=== PATIENT | female | born 1955 | race Caucasian/White ===

== ENCOUNTER 2021-12-16 11:09 | Outpatient (CLI) | payer MEDICARE, SELFPAY ==
--- OUTSIDE RECORDS SUMMARY | 2021-12-16 11:12 | XMS_ITS | Encounter Summary ---
:1955 Author Organization [facility] Address [address] [place] [address] Care Team Providers Name Role Phone Meeta Patel MD Primary Care Provider Reason for Visit Reason Comments PHONE CALL TO PATIENT Encounter Details Date Type Department Care Team Description 03/05/2018 [facility] 401 Estevan Gil MD PHONE CALL TO PATIENT Vascular Surgery [address] [facility] [place] [address] [phone] (Wo rk) Social History Tobacco Use Types Packs/Day Years Used Date Smoking Tobacco: Every Day Alcohol Use Standard Drinks/Week Comments Not Asked 0 (1 standard drink = 0.6 oz pure alcoho l) Sex Assigned at Date Recorded Not on file documented as of this encounter Nursing Notes Aman Nelson RN - 03/05/2018 9:38 AM CST 9:39 AM 03/05/2018 Spoke with pt-reviewed instructions below with pt. States her will be with her as her putaway driver. You are scheduled to have a right RFA and phlebectomies procedure with Estevan Gil MD on Mar.08. Please arrive at 7 AM. ?? A history and physical exam is not required for this procedure ?? Please shower the evening before and the morning of your procedure ?? Please do not apply lotion to the leg that the procedure is being performed on ?? It is ok to have a light meal 1-2 hours before the procedure ?? It is ok to take your routine medications (including aspirin) before the procedure ?? Please wear loose-fitting comfortable clothes ?? Please leave your jewelry and valuables at home ?? Please remember to bring a pillow ?? Please arrange for someone to drive you home ?? No public transportation can be used to go home after the procedure. This includes cab/bus/Uber/Lyft. ?? When you get home you must have a responsible adult stay with you the rest of the day. Aman Nelson RN 03/05/2018, 9:44 AM INE III COREMAKER documented in this encounter Plan of Treatment Not on filedocumented as of this encounter Visit Diagnoses Not on filedocumented in this encounter Care Teams Newspaper Reporter Relationship Specialty Start Date End Date Meeta Patel MD PCP - General Internal Medicine 01/15/18 05/19/201999 [place] [address] documented as of this encounter
--- OUTSIDE RECORDS SUMMARY | 2021-12-16 11:12 | XMS_ITS | Encounter Summary ---
:1955 Author Organization [employer] Address [address] [place] [address] Care Team Providers Name Role Phone Meeta Patel MD Primary Care Provider Reason for Visit Reason Comments Post Procedure Questions Encounter Details Date Type Department Care Team Description 03/11/2018 Telephone Specialty Center 401 Estevan Gil, Post Procedure Surgery Clinic Questions 401 [facility]. 401 [place] [address] [place], [place] [phone] [address] Social History Tobacco Use Types Packs/Day Years Used Date Smoking Tobacco: Former Alcohol Use Standard Drinks/Week Comments Not Asked 0 (1 standard drink = 0.6 oz pure alcoho l) Sex Assigned at Date Recorded Not on file documented as of this encounter Nursing Notes Aman Nelson RN - 03/11/2018 12:59 PM CST Post procedure call to patient 1:00 PM Sandy Sousa is status post right radiofrequency ablation (including microphlebectomy) Did you elevate your leg an walk periodically until bed time the day of the procedure? Yes Have you had any problems with bleeding since you got home after the procedure? If yes, please explain.No Have you needed anything for pain? Yes, states worked for 4 hours this morning and leg became achey so went home and took Ibuprofen with good relief. If yes, what have you taken for the pain? Ibuprofen/Tylenol Did this help? Yes If it has been 48 hours or longer since your procedure, have you taken the dressing off and showered? Yes Are you wearing the compression stockings as directed? Yes Your post procedure appointment is scheduled for with Estevan Gil MD. Your follow-up ultrasound is scheduled prior to your appointment at 3:30 on . Do you have any other questions or concerns I can help you with today? No Please call us if you have further questions or concerns at [phone] during regular clinic hours. If you have questions or concerns after clinic hours, please call [phone] and our Care Line nurses will assist you. Aman Nelson, RN LE DEPARTMENT WORKER Jonathan Hernandez LPN - 03/11/2018 12:51 PM CST Post procedure call to patient 12:51 PM Sandy Sousa is status post right radiofrequency ablation (including microphlebectomy) Left message for patient to return call to clinic at [phone] to speak with nurse. Clinic hours: Sunday - Sunday 8 am- 5 pm. See VIRI Hernandez 03/11/2018, 12:53 PM LE DEPARTMENT WORKER documented in this encounter Plan of Treatment Not on filedocumented as of this encounter Visit Diagnoses Not on filedocumented in this encounter Care Teams Business Coordinator Relationship Specialty Start Date End Date Meeta Patel MD PCP - General Internal Medicine 01/15/18 05/19/201999 [place] [address] documented as of this encounter
--- OUTSIDE RECORDS SUMMARY | 2021-12-16 11:12 | XMS_ITS | Encounter Summary ---
:1955 Author Organization [facility] Address [address], [place] [address] Care Team Providers Name Role Phone Meeta Patel MD Primary Care Provider Encounter Details Date Type Department Care Team Description 02/15/2019 shelby Turcios [phone] Social History Tobacco Use Types Packs/Day Years Used Date Smoking Tobacco: Former Alcohol Use Standard Drinks/Week Comments Not Asked 0 (1 standard drink = 0.6 oz pure alcoho l) Sex Assigned at Date Recorded Not on file documented as of this encounter Progress Notes FAMILY MEDICINESHELBY PROVIDER - 02/15/2019 12:00 AM CST shel[facility] Treatment Plan Diagnosis Viral Sinusitis Visit Date February 15, 2019 Sandy Sousa Date of : 51 Provider Fe Rodríguez, Physician Entry Level Paralegal Note From Provider Roscoe Delgado. Thank you for using [facility] today and for speaking with me. I'm so sorry you're having these very bothersome symptoms. Let's get you feeling better! At this point your sinus symptoms are viral. All sinus infections start off as viral infections. If symptoms persist we get concerned that the mucus trapped in the sinuses may develop bacterial growth. At this time the likelihood of bacterialgrowth in your sinuses is extremely low. You'll need to work to get the mucus out of your sinuses toprevent bacterial growth. In your treatment plan I've outlined symptom relief measures along with strategies for clearing your sinuses. Please watch the video included in your plan. The high-dose ibuprofen (800mg every 8 hours with food for 3 days) and Mucinex (plain guaifenesin) as listed reduce inflammation and pain and should help you feel significantly better. Add Flonase nasal spray (found over the counter) 2 sprays each nostril daily. This is an excellent way to decrease the inflammation and swelling. It can also be used at the first sign of any cold symptoms to aid in preventing a sinus infection. Check out the other self-care tips I've listed above, too. If your symptoms do not improve with 3 days of this plan, please request a callback. Take careFe Treatment Plan Let???s get you feeling better in the next 24 hours by using an effective blend of hhfa-dku-ggtyiqv products to kick this viral infection. We???ll work to reduce your pain and inflammation, help drain that irritating mucus and prevent this from worsening. Because this infection is viral, an antibioticwon???t be effective at helping your pain or treating the virus. If your symptoms don???t improve after 24 hours, or if you have questions, select Help to Request a Call Back and we???ll adjust your treatment for free. Order(s) None Treatment Plan Self Care Tip Topics Inflammation Relief with Ibuprofen How to Take Your Nasal Steroid Nasal Sprays to Reduce Inflammation Cough Expectorant Warm Packs Steam Therapy Irrigate Your Sinuses What to Expect Let???s work on reducing your pain and inflammation, as well as promoting drainage, to help kick theviral infection and get you feeling more like yourself. Follow the recommendations on the Treatment tab and your symptoms should begin to improve over the next 24 hours. If your symptoms haven???t impro oscar after 1 day, select Help to Request a Callback and we???ll adjust your treatment for free. What to Watch Out For Give us a call immediately if you experience: ??? Vision changes ??? Redness occurring in the face ??? Increasing congestion ??? Worsening pain ??? High fevers My Conditions, Orders, Allergies as of February 15, 2019 Standard condition list High Blood Pressure (Hypertension) Current orders hydrochlorothiazide (hydrochlorothiazide) Allergies None [facility] Information [facility] by [employer] We are an online clinic open 16/10. If you have any questions or comments about this visit, please call or email [email or web address] [email or web address] documented in this encounter Plan of Treatment Not on filedocumented as of this encounter Visit Diagnoses Not on filedocumented in this encounter Care Teams Screwhead Polisher Relationship Specialty Start Date End Date Meeta Patel MD PCP - General Internal Medicine 01/15/18 05/19/201999 [place] [address] documented as of this encounter
--- OUTSIDE RECORDS SUMMARY | 2021-12-16 11:12 | XMS_ITS | Encounter Summary ---
:1955 Author Organization [facility] Address [address] [place] [address] Care Team Providers Name Role Phone Meeta Patel MD Primary Care Provider Encounter Details Date Type Department Care Team Description 11/28/2018 shelby Turcios [phone] Social History Tobacco Use Types Packs/Day Years Used Date Smoking Tobacco: Former Alcohol Use Standard Drinks/Week Comments Not Asked 0 (1 standard drink = 0.6 oz pure alcoho l) Sex Assigned at Date Recorded Not on file documented as of this encounter Progress Notes FAMILY MEDICINESHELBY PROVIDER - 11/28/2018 12:00 AM CDT [facility] Treatment Plan Diagnosis Contact Dermatitis from Plant Exposure Visit Date November 28, 2018 Sandy Sousa Date of : 51 Provider Shell Brandon, Nurse Practitioner Note From Provider Roscoe Delgado, I have sent your prescription to your pharmacy. Do not hesitate to Request a Call Back forany questions or if you continue to note that the rash continues to spread. Take good care,Shell URBINA Treatment Plan Let's try a prescription strength steroid cream for your rash. I sent a prescription to [facility] . I've also listed a few of the best ways to soothe your discomfort and some additional self-care tips to promote healing. If your symptoms don't improve after 4 days, or if you have questions,please use the Request a Call Back button and we'll adjust your treatment for free. Order(s) triamcinolone acetonide 0.1% cream Apply a small amount to affected area twice a day as directed for 10 days Note: Avoid face and genitalia. Apply to affected areas on chest and arms. Refills: 1 Sent To: [facility] [address] [place] [id number] Treatment Plan Self Care Tip Topics Is it Contagious? Cold Packs Oral Itch Relief What to Expect If you follow the recommendations I made on the Treatment tab, your symptoms should improve in about4 days. If your symptoms don't improve after 4 days, or if you have any questions, please use the Request a Call Back button and we'll adjust your treatment for free. What to Watch Out For Give us a call immediately if you experience: ??? Vision changes ??? Severe headaches ??? Spreading to your face ??? Drainage of thick white, yellow or foul smelling fluids ??? Developing a high fever ??? Worsening rash My Conditions, Orders, Allergies as of November 28, 2018 Standard condition list None Current orders triamcinolone acetonide (triamcinolone acetonide) hydrochlorothiazide (hydrochlorothiazide) Allergies None [employer] Information [employer] [facility] [employer] We are an online clinic open 16/10. If you have any questions or comments about this visit, please call or email [email or web address]. documented in this encounter Plan of Treatment Not on filedocumented as of this encounter Visit Diagnoses Not on filedocumented in this encounter Care Teams Head Of Ethics And Compliance Relationship Specialty Start Date End Date Meeta Patel MD PCP - General Internal Medicine 01/15/18 05/19/[address] [place] [address] documented as of this encounter
--- OUTSIDE RECORDS SUMMARY | 2021-12-16 11:12 | XMS_ITS | Encounter Summary ---
:1955 Author Organization [employer] Address [address] [place] [address] Care Team Providers Name Role Phone Js Sousa MD Primary Care Provider Reason for Visit Reason Comments Questions Encounter Details Date Type Department Care Team Description 06/04/2020 Telephone Specialty Center 401 Estevan Gil MD Questions [facility] 401 [place] [address] [place] [address] [phone] Social History Tobacco Use Types Packs/Day Years Used Date Smoking Tobacco: Former Smokeless Tobacco: Never Alcohol Use Standard Drinks/Week Comments Not Asked 0 (1 standard drink = 0.6 oz pure alcoho l) Sex Assigned at Date Recorded Not on file documented as of this encounter Nursing Notes Cora Sosa RN - 06/04/2020 3:[address] Gil states he incorporated the information into his last note. Please fax Dr. Gil's notefrom 05/21 and TE notes from today to Luisa. Cora Sosa RN 06/04/2020, 3:26 PM UE WORKER Eileen Haskins - 06/04/2020 3:23 PM CST Faxed updated notes to Luisa. Eileen Haskins 06/04/2020, 3:23 PM UE WORKER HaskinsEileen ruth - 06/04/2020 3:01 PM CST Received fax number from Luisa to send notes to [phone]. I do not see the new notes added. Please add information to appointment notes and fax information to Luisa to fax number above. Eileen Haskins 06/04/2020, 3:02 PM UE WORKER Cora Sosa RN - 06/04/2020 2:[address] Gil's message routed to [place] to send to Luisa in [place]. Cora Sosa RN 06/04/2020, 2:21 PM Estevan Rankin MD - 06/04/2020 10:36 AM CST I added an addendum. Her saphenofemoral junction is the source of her varicosities leading into the anterior accessory saphenous vein. The vein measures roughly 8 mm at this location. The distal greater saphenous vein is also incompetent in the calf. My plan would be to treat the saphenofemoral incompetence and do stab assisted phlebectomies throughout the thigh and calf. She has worn prescription grade compression socks dating back to 2018 which was documented in my previous note. I added this again as an addendum. Estevan Gil MD 06/04/2020, 10:37 AM Cora Reed RN - 06/04/2020 10:05 AM CST RN returned call to Luisa. Luisa states there is no documentation that the pt has tried compression stockings and she also has questions as to which veins Dr. Gil will be treating - states US showed AASV is competent but Dr. Gil notes he would be treating. RN replied it would be best for Luisa to speak w/ Dr. Gil directly regarding these questions and explained she inform Dr. Gil of the message and need to call. Luisa agreed - states she needs a response by end of day on Sunday. RN verbalized understanding. Cora Sosa RN 06/04/2020, 10:09 AM UE WORKER Eileen Haskins - 06/04/2020 9:43 AM CST Luisa from [facility] department is calling stating she needs more information about what veins are going to be treated and the dimensions of the vein. Please call her back to discuss. Eileen Haskins 06/04/2020, 9:44 AM UE WORKER documented in this encounter Plan of Treatment Not on filedocumented as of this encounter Visit Diagnoses Not on filedocumented in this encounter Care Teams Department Store Salesperson Relationship Specialty Start Date End Date Js Sousa MD PCP - General 05/20/201999 [place] [address] documented as of this encounter
--- OUTSIDE RECORDS SUMMARY | 2021-12-16 11:12 | XMS_ITS | Encounter Summary ---
:1955 Author Organization [facility] Address [address] [place] [address] Care Team Providers Name Role Phone Js Sousa MD Primary Care Provider Reason for Referral Procedure/Equipment (Routine) - Incomplete Specialty Diagnoses / Procedures Referred By Contact Refer red To Contact Diagnoses Varicose veins of left lower extremity with pain Estevan Gil MD Procedures Case/Procedure Request - General/V[facility] [address] [place] [address] Referral ID Status Reason Start Date Expiration Date Visits V isits Requested Authorized [id number] Incomplete 05/30/2020 11/26/2020 1 1 ENT PROCESS EXTRACTOR OPERATOR Procedure/Equipment (Routine) - Incomplete Specialty Diagnoses / Procedures Referred By Contact Refer red To Contact Diagnoses Varicose veins of left lower extremity with pain Estevan Gil MD Procedures US VENOUS LEFT LOWER EXTREM DOPPLER [address] [place] [address] Referral ID Status Reason Start Date Expiration Date Visits V isits Requested Authorized [id number] Incomplete 05/30/2020 08/29/2021 1 1 ENT PROCESS EXTRACTOR OPERATOR Encounter Details Date Type Department Care Team Description 05/30/2020 Orders Only [facility] Estevan Gil Vari cose veins of left 401 Vascular Surgery MD lower extremity with [address] pain (Primary Dx) STEPHEN [place] [address] [place] [phone] Social History Tobacco Use Types Packs/Day Years Used Date Smoking Tobacco: Former Smokeless Tobacco: Never Alcohol Use Standard Drinks/Week Comments Not Asked 0 (1 standard drink = 0.6 oz pure alcoho l) Sex Assigned at Date Recorded Not on file documented as of this encounter Plan of Treatment Not on filedocumented as of this encounter Results US VENOUS LEFT LOWER EXTREM DOPPLER (09/03/2020 1:27 PM CDT) Anatomical Region Laterality Modality Vascular, Leg Ultrasound Specimen (Source) Anatomical Collection Method Collection Time Re ceived Time Location / / Volume Laterality 09/03/2020 1:27 PM CDT Narrative 09/04/2020 2:51 PM CDT EXAM: US VENOUS LEFT LOWER EXTREM DOPPLER LOC[facility]: [facility] DATE/TIME: 09/03/2020 1:27 PM INDICATION: Follow-up left leg venous ab lation COMPARISON: None. TECHNIQUE: Venous Duplex ultrasound of t he left lower extremity with and without compression, augmentation and duplex. Color flow and spectral Doppler with waveform analysis performed. FINDINGS: Exam includes the common femor al, femoral, popliteal, and contralateral common femoral veins as well as segmentally visualized deep calf veins and greater saphenous vein. LEFT: No deep vein thrombosis. There is occlusion of the left greater saphenous vein in the proximal thigh. The left anterior accessory saphenous vein does appear to be patent. No popliteal cyst. IMPRESSION: 1. ??No deep venous thrombosis in the le ft lower extremity. Occlusion of the proximal left greater saphenous vein consistent with recent venous ablation. Procedure Note Estevan Gil MD - 09/04/2020Formatti ng of this note might be different from the original. EXAM: US VENOUS LEFT LOWER EXTREM DOPPLE R LOCATION: [facility] DATE/TIME: 09/03/2020 1:27 PM INDICATION: Follow-up left leg venous ab lation COMPARISON: None. TECHNIQUE: Venous Duplex ultrasound of t he left lower extremity with and without compression, augmentation and duplex. Color flow and spectral Doppler with waveform analysis performed. FINDINGS: Exam includes the common femor al, femoral, popliteal, and contralateral common femoral veins as well as segmentally visualized deep calf veins and greater saphenous vein. LEFT: No deep vein thrombosis. There is occlusion of the left greater saphenous vein in the proximal thigh. The left anterior accessory saphenous vein does appear to be patent. No popliteal cyst. IMPRESSION: 1. No deep venous thrombosis in the left lower extremity. Occlusion of the proximal left greater saphenous vein consistent with recent venous ablation. Estevan Gil MD [facility] documented in this encounter Visit Diagnoses Diagnosis Varicose veins of left lower extremity w ith pain - Primary Varicose veins of lower extremities with other complications Varicose veins of left lower extremity w ith pain Varicose veins of lower extremities with other complications documented in this encounter Care Teams Yeast Culture Operator Relationship Specialty Start Date End Date Js Sousa MD PCP - General 05/20/201999 [place] [address] documented as of this encounter
--- OUTSIDE RECORDS SUMMARY | 2021-12-16 11:12 | XMS_ITS | Encounter Summary ---
:1955 Author Organization [employer] Address [address] [place] [address] Care Team Providers Name Role Phone Js Sousa MD Primary Care Provider Reason for Visit Reason Comments Questions Encounter Details Date Type Department Care Team Description 08/20/2020 Telephone Specialty Center 401 Estevan Gil MD Questions [facility] [place] [address] [place] [address] [phone] Social History Tobacco Use Types Packs/Day Years Used Date Smoking Tobacco: Former Smokeless Tobacco: Never Alcohol Use Standard Drinks/Week Comments Not Asked 0 (1 standard drink = 0.6 oz pure alcoho l) Sex Assigned at Date Recorded Not on file documented as of this encounter Nursing Notes Cathy Poole RN - 08/20/2020 11:00 AM CDT Contacted pt. Does not have compression stockings as she first thought. Pt advised that it is ok to use the jack bandages from compression for the couple weeks postoperatively. Making sure to wear them 24 hours a day first week and just during waking hours second week post procedure. If pt prefers prescriptions for compression that can be supplied also. Pt has decided to utilize the jack bandages for post procedure compression. Will call back with future concerns. Cathy Poole RN 08/20/2020, 11:02 AM Elena Berrios - 08/20/2020 10:23 AM CDT Pt had procedure today and she does not have compression stockings and she is wondering where to getsome. Please call Elena Berrios 08/20/2020, 10:23 AM documented in this encounter Plan of Treatment Not on filedocumented as of this encounter Visit Diagnoses Not on filedocumented in this encounter Care Teams Information Security Relationship Specialty Start Date End Date Js Sousa MD PCP - General 05/20/201999 [place] [address] documented as of this encounter
--- OUTSIDE RECORDS SUMMARY | 2021-12-16 11:12 | XMS_ITS | Encounter Summary ---
:1955 Author Organization [employer] Address [address] [place] [address] Care Team Providers Name Role Phone Meeta Patel MD Primary Care Provider Reason for Visit Reason Comments POST-OP,EXAM Encounter Details Date Type Department Care Team Description 03/15/2018 Office Visit Specialty Center Estevan Gil Vari cose veins of 401 Vascular Surgery MD lower extremity with [address] pain, [place] [address] [place], [place] laterality (Primary [phone] Dx) Social History Tobacco Use Types Packs/Day Years Used Date Smoking Tobacco: Former Alcohol Use Standard Drinks/Week Comments Not Asked 0 (1 standard drink = 0.6 oz pure alcoho l) Sex Assigned at Date Recorded Not on file documented as of this encounter Last Filed Vital Signs Vital Sign Reading Time Taken Comments Blood Pressure 165/94 03/15/2018 4:15 PM GEOTHERMAL HEAT PUMP MACHINIST Pulse 59 03/15/2018 4:15 PM GEOTHERMAL HEAT PUMP MACHINIST Temperature 36.8 ??C (98.2 ??F) 03/15/2018 4:15 PM GEOTHERMAL HEAT PUMP MACHINIST Respiratory Rate - - Oxygen Saturation - - Inhaled Oxygen Concentration - - Weight - - Height - - Body Mass Index - - documented in this encounter Progress Notes Estevan Gil MD - 03/15/2018 4:10 PM CST VASCULAR SURGERY FOLLOW-UP DATE OF SERVICE: 03/15/2018 SUBJECTIVE: I am seeing Ms. Sousa after right leg endovenous ablation and phlebectomies. She has had minimal pain. OBJECTIVE: BP (!) 165/94 Pulse (!) 59 Temp 98.2 ??F (36.8 ??C) (Oral) . She has mild bruising along the course of the treated veins. She has no appreciable swelling. ASSESSMENT AND PLAN: Patient is status post right leg endovenous ablation and phlebectomies. I reviewed her ultrasound which demonstrates occlusion of treated vein with no evidence of deep vein thrombosis. I will see her back on an as- needed basis. Estevan Gil MD This note created using speech-recognition software and may contain unintended word substitutions HERMAL HEAT PUMP MACHINIST documented in this encounter Nursing Notes Aman Nelson RN - 03/15/2018 4:10 PM CST Pt left without having BP checked. Aman Nelson RN 03/15/2018, 4:27 PM HERMAL HEAT PUMP MACHINIST documented in this encounter Plan of Treatment Not on filedocumented as of this encounter Visit Diagnoses Diagnosis Varicose veins of lower extremity with p ain, unspecified laterality - Primary documented in this encounter Care Teams Noc Analyst Relationship Specialty Start Date End Date Meeta Patel MD PCP - General Internal Medicine 01/15/18 05/19/201999 [place] [address] documented as of this encounter
--- OUTSIDE RECORDS SUMMARY | 2021-12-16 11:12 | XMS_ITS | Encounter Summary ---
:1955 Author [facility] Address [address] [place] [address] Care Team Providers Name Role Phone Js Sousa MD Primary Care Provider Reason for Visit Procedure/Equipment (Routine) - Incomplete Specialty Diagnoses / Procedures Referred By Contact Refer red To Contact Diagnoses Varicose veins of lower extremity with pain, unspecified laterality Estevan Gil MD Procedures Vascular Surgery [address] [place] [address] Referral ID Status Reason Start Date Expiration Date Visits V isits Requested Authorized [id number] Incomplete 08/20/2020 11/19/2021 1 1 Encounter Details Date Type Department Care Team Description 08/20/2020 Ancillary Procedure Specialty Center Estevan Gil Varicose veins of 401 Vascular Surgery MD Myesha lower extremity with [address] pain, [place] [address] [place], [place] laterality [phone] Social History Tobacco Use Types Packs/Day Years Used Date Smoking Tobacco: Former Smokeless Tobacco: Never Alcohol Use Standard Drinks/Week Comments Not Asked 0 (1 standard drink = 0.6 oz pure alcoho l) Sex Assigned at Date Recorded Not on file documented as of this encounter Plan of Treatment Not on filedocumented as of this encounter Procedures Procedure Name Priority Date/Time Associated Diagnosis Comme nts US VASCULAR SURGERY Routine 08/20/2020 6:56 AM Varicose veins of Results for this CDT lower extremity with procedu re are in pain, unspecified the result s laterality section. documented in this encounter Results US Vascular Surgery (08/20/2020 6:56 AM CDT) Specimen (Source) Anatomical Location Collection Method / Collectio n Time Received Time / Laterality Volume Narrative EXTERNAL RESULTS - 08/20/2020 6:56 AM CD T This imaging has been performed by the ordering department and is not read by a Radiologist, see notes in encounter for details on study. Estevan Gil MD [facility] US Performing Organization Address City/State/ZIP Code Phon e Number EXTERNAL RESULTS documented in this encounter Visit Diagnoses Diagnosis Varicose veins of lower extremity with p ain, unspecified laterality documented in this encounter Care Teams Promotions Specialist Relationship Specialty Start Date End Date Js Sousa MD PCP - General 05/20/201999 [place] [address] documented as of this encounter
--- OUTSIDE RECORDS SUMMARY | 2021-12-16 11:12 | XMS_ITS | Encounter Summary ---
:1955 Author Organization [facility] Address [address], [place] [address] Care Team Providers Name Role Phone Unassigned, Provider Primary Care Provider Unavailable Encounter Details Date Type Department Care Team Description 09/20/2006 Orders Only [facility] Claims MD Meena Security Contact Bill [address] [place] [address] Mailstop [id number] [phone] (Wo rk) Social History Tobacco Use Types [...] on filedocumented in this encounter Care Teams Chemical Engineering Professor Relationship Specialty Start Date End Date Unassigned, Provider PCP - General 11/20/02 01/14/[address] [place] [address] documented as of this encounter
--- OUTSIDE RECORDS SUMMARY | 2021-12-16 11:12 | XMS_ITS | Encounter Summary ---
:1955 Author Organization [facility] Address [address] [place] [address] Care Team Providers Name Role Phone Unassigned, Provider Primary Care Provider Unavailable Reason for Visit Reason Onset Date Comments Other 05/16/2003 Encounter Details Date Type Department Care Team Description 05/16/2003 Telephone Careline Raul Croft, RN Other [address] AFTER HOURS [place], [place] [address] CARELINE [phone] [address] [place], [place] [id number] Social History Tobacco Use Types Packs/Day Years Used Date Smoking Tobacco: Every Day Alcohol Use Standard Drinks/Week Comments Not Asked 0 (1 standard drink = 0.6 oz pure alcoho l) Sex Assigned at Date Recorded Not on file documented as of this encounter Nursing Notes 05/16/2003 11:59 PM LATEX CASTER >> RAUL CROFT Sat May 16, 2003 11:21 AM 48 yr old seen in [facility] Apr 29 for tetanus. Still having problems with arm. Pain in area persists.NO redness, red streaks. water mangle tender to touch. Aching constantly in arm. NO numbness in arm. Healt hy. Pt states hasn't been seen for pain. Plan: Advised pt to be seen. appt ctr [facility] with UC time. voiced understanding of information given. documented in this encounter Plan of Treatment Not on filedocumented as of this encounter Visit Diagnoses Not on filedocumented in this encounter Care Teams Animal Cytologist Relationship Specialty Start Date End Date Unassigned, Provider PCP - General 11/20/02 01/14/18 [address] [place] [address] documented as of this encounter
--- OUTSIDE RECORDS SUMMARY | 2021-12-16 11:12 | XMS_ITS | Encounter Summary ---
:1955 Author Organization [facility] Address [address] [place] [address] Care Team Providers Name Role Phone Js Sousa MD Primary Care Provider Encounter Details Date Type Department Care Team Description 02/12/2018 Correspondence None Inactive, Provider CHRISTIAN GIBSON BILLABLE Social History Tobacco Use Types Packs/Day Years Used Date Smoking Tobacco: Every Day Alcohol Use Standard Drinks/Week Comments Not Asked 0 (1 standard drink = 0.6 oz pure alcoho l) Sex Assigned at Date Recorded Not on file documented as of this encounter Plan of Treatment Not on filedocumented as of this encounter Visit Diagnoses Not on filedocumented in this encounter Care Teams Color Television Console Monitor Relationship Specialty Start Date End Date Js Sousa MD PCP - General 05/20/201999 [place] [address] documented as of this encounter
--- OUTSIDE RECORDS SUMMARY | 2021-12-16 11:12 | XMS_ITS | Encounter Summary ---
:1955 Author Organization [email or web address] Address [address] [place] [address] Care Team Providers Name Role Phone Meeta Patel MD Primary Care Provider Reason for Referral Procedure/Equipment (Routine) - Incomplete Specialty Diagnoses / Procedures Referred By Contact Refer red To Contact Diagnoses Varicose veins of right lower extremity with pain Estevan Gil MD Procedures US Venous Competency Rt [address] [place] [address] Referral ID Status Reason Start Date Expiration Date Visits V isits Requested Authorized [id number] Incomplete 01/16/2018 04/17/2019 1 1 Reason for Visit Reason Comments NEW MEMBER VISIT Right leg vein bulging/phleb itis Encounter Details Date Type Department Care Team Description 01/18/2018 Office Visit [facility] Estevan Gil, Makenzie cose veins of 401 Vascular Surgery right lower extremity [address] with pain (Primary Dx) [place] [address] [place], [place] [phone] Social History Tobacco Use Types Packs/Day Years Used Date Smoking Tobacco: Every Day Alcohol Use Standard Drinks/Week Comments Not Asked 0 (1 standard drink = 0.6 oz pure alcoho l) Sex Assigned at Date Recorded Not on file documented as of this encounter Last Filed Vital Signs Vital Sign Reading Time Taken Comments Blood Pressure 165/89 01/18/2018 2:37 PM CDT Pulse 62 01/18/2018 2:37 PM CDT Temperature - - Respiratory Rate - - Oxygen Saturation - - Inhaled Oxygen Concentration - - Weight 93.6 kg (206 lb 6.4 oz) 01/18/2018 2:11 PM CDT Height 162.6 cm (5' 4) 01/18/2018 2:11 PM CDT Body Mass Index 35.43 01/18/2018 2:11 PM CDT documented in this encounter Progress Notes Estevan Gil MD - 01/18/2018 2:40 PM CDT NEW PATIENT CONSULTATION DATE OF SERVICE: 01/18/2018 HPI: I was asked to see Ms. Sousa in consultation by Patient Self- Referral in relation to right leg pain. Briefly the patient is a 62-year-old female with roughly 3 months of right leg pain. This came on relatively suddenly. She describes an aching and heaviness which was proceeding this but has been more consistent since she developed the inner right thigh pain. She had an ultrasound that demonstrated no evidence of deep vein thrombosis. She denies significant pain in her left leg. She does have per prescription grade compression socks and has worn these for at least three months. The pain does sometimes force her to elevate the leg are take [id number] pain medicine. PAST MEDICAL HISTORY: Previous hysterectomy, hypothyroidism SOCIAL HISTORY: She is a nonsmoker FAMILY HISTORY: Negative for significant vascular disease REVIEW OF SYSTEMS: Patient denies shortness of breath or chest pain. The patient denies recent weight gain or weight loss. Complete review of systems was performed and was otherwise negative. MEDICATIONS: The patient has a current medication list which includes the following prescription(s):ibuprofen, premarin, and synthroid.. ALLERGIES: The patient has No Known Allergies. PHYSICAL EXAM: BP (!) 165/89 Pulse 62 Ht 5' 4 (1.626 m) Wt 206 lb 6.4 oz (93.6 kg) BMI 35.43 kg/m2 General: alert and oriented HEENT: sclera anicteric, no cervical bruits or lymphadenopathy CV: regular Pulm: clear to auscultation GI: abd soft, NT : no flank tenderness Vascular exam: She has easily palpable femoral and pedal pulses which are equal. She has trace swelling around both ankles. She has prominent varicosities which arise in the mid right thigh off of whatappears to be the anterior accessory saphenous vein or proximal greater saphenous vein. DIAGNOSTIC STUDIES: I reviewed her outside ultrasound which demonstrates no evidence of deep vein thrombosis. I did a bedside ultrasound which demonstrates that the varicosities appear to arise from the upper right thigh to the saphenofemoral junction. ASSESSMENT AND PLAN: Patient with symptomatic right leg varicosities. This does not appear to be thrombophlebitis. The risks and benefits of endovenous ablation of phlebectomies were discussed with her. She would need a venous reflux study as a next step. For now she will continue wearing her compression socks. She will call or come back if she decides to proceed with more definitive treatment. Otherwise I will see her back on an as-needed basis. Estevan Gil MD This note created using speech-recognition software and may contain unintended word substitutions documented in this encounter Plan of Treatment Not on filedocumented as of this encounter Results US Venous Competency Rt (01/29/2018 9:39 AM SALES DEVELOPMENT EXECUTIVE) Anatomical Region Laterality Modality Vascular, Upper Extremity Ultrasound Specimen (Source) Anatomical Collection Method Collection Time Re ceived Time Location / / Volume Laterality 01/29/2018 9:39 AM SALES DEVELOPMENT EXECUTIVE Narrative 01/31/2018 12:41 PM SALES DEVELOPMENT EXECUTIVE [facility] January 29, 2018 EXAM: RIGHT LOWER EXTREMITY DEEP AND SUP ERFICIAL VENOUS DUPLEX ULTRASOUND WITH PHYSIOLOGIC TESTING INDICATION: Symptomatic varicose veins. Assess for incompetent veins. TECHNIQUE: Supine and upright ultrasound of the deep and superficial veins with Valsalva and compression augmentation maneuvers. Duplex imaging is performed utilizing su-scale, two-dimensional images, color-flow imaging, Doppler waveform an alysis, and spectral Doppler imaging. INCOMPETENCY CRITERIA: Deep vein reflux reported when greater than 1,000 ms flow reversal. Superficial vein reflux reported when greater than 500 ms flow reversal. Ballistics Expert Forensic vein reflux reported as greater than 350 ms flow reversal. DEEP VEIN FINDINGS: ?? RIGHT LEG: The common femoral, profunda femoral, femoral, popliteal, and visualized calf veins are patent and compressible. No deep vein incompetency. RIGHT SUPERFICIAL VEIN FINDINGS: GREAT SAPHENOUS VEIN: There is incompete nce of the saphenofemoral junction with dilation up to 8 mm and incompetence of the greater saphenous vein down to the knee. SMALL SAPHENOUS VEIN: Competent from the saphenopopliteal junction to the mid calf. The anterior accessory saphenous vein is incompetent leading the clinically evident varicosities. CONCLUSION: 1. ??No deep venous thrombosis of the ri t lower extremity. 2. ??RIGHT LEG: The right superficial ve nous system is patent, with incompetence of the greater saphenous vein and anterior accessory saphenous vein leading to clinically evident varicosities. Procedure Note Estevan Gil MD - 01/31/2018Formatti ng of this note might be different from the original. [facility] January 29, 2018 EXAM: RIGHT LOWER EXTREMITY DEEP AND SUP ERFICIAL VENOUS DUPLEX ULTRASOUND WITH PHYSIOLOGIC TESTING INDICATION: Symptomatic varicose veins. Assess for incompetent veins. TECHNIQUE: Supine and upright ultrasound of the deep and superficial veins with Valsalva and compression augmentation maneuvers. Duplex imaging is performed utilizing su-scale, two-dimensional images, color-flow imaging, Doppler waveform analysis, and spectral Doppler imaging. INCOMPETENCY CRITERIA: Deep vein reflux reported when greater than 1,000 ms flow reversal. Superficial vein reflux reported when greater than 500 ms flow reversal. Ballistics Expert Forensic vein reflux reported as greater than 350 ms flow reversal. DEEP VEIN FINDINGS: RIGHT LEG: The common femoral, profunda femoral, femoral, popliteal, and visualized calf veins are patent and compressible. No deep vein incompetency. RIGHT SUPERFICIAL VEIN FINDINGS: GREAT SAPHENOUS VEIN: There is incompete nce of the saphenofemoral junction with dilation up to 8 mm and incompetence of the greater saphenous vein down to the knee. SMALL SAPHENOUS VEIN: Competent from the saphenopopliteal junction to the mid calf. The anterior accessory saphenous vein is incompetent leading the clinically evident varicosities. CONCLUSION: 1. No deep venous thrombosis of the rig t lower extremity. 2. RIGHT LEG: The right superficial veno us system is patent, with incompetence of the greater saphenous vein and anterior accessory saphenous vein leading to clinically evident varicosities. Estevan Gil MD [facility] US documented in this encounter Visit Diagnoses Diagnosis Varicose veins of right lower extremity with pain - Primary Varicose veins of lower extremities with other complications Varicose veins of right lower extremity with pain Varicose veins of lower extremities with other complications documented in this encounter Care Teams Power Plant Operator Apprentice Relationship Specialty Start Date End Date Meeta Patel MD PCP - General Internal Medicine 01/15/18 05/19/201999 [place] [address] documented as of this encounter
--- OUTSIDE RECORDS SUMMARY | 2021-12-16 11:12 | XMS_ITS | Encounter Summary ---
:1955 Author Organization [employer] Address [address] [place] [address] Care Team Providers Name Role Phone Js Sousa MD Primary Care Provider Reason for Visit Reason Comments Post Op Exam Encounter Details Date Type Department Care Team Description 09/03/2020 Office Visit Specialty Center Estevan Gil Vari cose veins of 401 Vascular Surgery MD lower extremity with [address] [place], [place] [address] [place], [place] laterality (Primary [phone] Dx) Social History Tobacco Use Types Packs/Day Years Used Date Smoking Tobacco: Former Smokeless Tobacco: Never Alcohol Use Standard Drinks/Week Comments Never 0 (1 standard drink = 0.6 oz pure alcoho l) Alcohol Habits Answer Date Recorded How often do you have a drink containing alcohol? Never 09/03/2020 How many drinks containing alcohol do you have on a typical Not asked day when you are drinking? How often do you have six or more drinks on one occasion? No t asked Comment: Not asked Sex Assigned at Date Recorded Not on file documented as of this encounter Progress Notes Estevan Gil MD - 09/03/2020 1:30 PM CDT VASCULAR SURGERY FOLLOW-UP DATE OF SERVICE: 09/03/2020 SUBJECTIVE: I am seeing Ms. Sousa after previous venous ablation and phlebectomy. She has had minimal pain. OBJECTIVE: There were no vitals taken for this visit.. She has mild bruising on the leg. There is noappreciable swelling. ASSESSMENT AND PLAN: Patient is status post left leg venous ablation and phlebectomy. If I reviewed her ultrasound which demonstrates occlusion of the treated vein with no evidence of DVT. I will see her back on an as-needed basis. Estevan Gil MD This note created using speech-recognition software and may contain unintended word substitutions documented in this encounter Plan of Treatment Not on filedocumented as of this encounter Visit Diagnoses Diagnosis Varicose veins of lower extremity with p ain, unspecified laterality - Primary documented in this encounter Care Teams Freezing Machine Operator Relationship Specialty Start Date End Date Js Sousa MD PCP - General 05/20/201999 [place] [address] documented as of this encounter
--- OUTSIDE RECORDS SUMMARY | 2021-12-16 11:12 | XMS_ITS | Encounter Summary ---
:1955 Author Organization [facility] Address [address], [place] [address] Care Team Providers Name Role Phone Unassigned, Provider Primary Care Provider Unavailable Encounter Details Date Type Department Care Team Description 01/29/2013 Orders Only [facility] Claims MD Meena Security Contact Bill [address] [place] [address] Mailstop [id number] [phone] (Wo rk) Social History Tobacco Use Types [...] on filedocumented in this encounter Care Teams Assurance Manager Insurance Relationship Specialty Start Date End Date Unassigned, Provider PCP - General 11/20/02 01/14/[address] [place] [address] documented as of this encounter
--- OUTSIDE RECORDS SUMMARY | 2021-12-16 11:12 | XMS_ITS | Encounter Summary ---
:1955 Author Organization [facility] Address [address] [place] [address] Care Team Providers Name Role Phone Unassigned, Provider Primary Care Provider Unavailable Encounter Details Date Type Department Care Team Description 05/16/2003 Correspondence None Unknown, Physici an CONSENT AND RELEASE [address] [place] [address] (Wo rk) Social History Tobacco Use Types Packs/Day Years Used Date Smoking Tobacco: Every Day Alcohol Use Standard Drinks/Week Comments Not Asked 0 (1 standard drink = 0.6 oz pure alcoho l) Sex Assigned at Date Recorded Not on file documented as of this encounter Progress Notes Unknown, Physician - 05/16/2003 12:00 AM RAILROAD MECHANIC documented in this encounter Plan of Treatment Not on filedocumented as of this encounter Visit Diagnoses Not on filedocumented in this encounter Care Teams Carpentry Professional Relationship Specialty Start Date End Date Unassigned, Provider PCP - General 11/20/02 01/14/18 [address] [place] [address] documented as of this encounter
--- OUTSIDE RECORDS SUMMARY | 2021-12-16 11:12 | XMS_ITS | Encounter Summary ---
:1955 Author Organization [facility] Address [address] [place] [address] Care Team Providers Name Role Phone Meeta Patel MD Primary Care Provider Reason for Referral Procedure/Equipment (Routine) - Incomplete Specialty Diagnoses / Procedures Referred By Contact Refer red To Contact Diagnoses Varicose veins of right lower extremity with pain Estevan Gil MD Procedures Case/Procedure Request - General/Vascula [address] [place] [address] Referral ID Status Reason Start Date Expiration Date Visits V isits Requested Authorized [id number] Incomplete 01/31/2018 07/30/2018 1 1 VIORIST Procedure/Equipment (Routine) - Incomplete Specialty Diagnoses / Procedures Referred By Contact Refer red To Contact Diagnoses Varicose veins of right lower extremity with pain Estevan Gil MD Procedures US VENOUS RIGHT LOWER EXTREM DOPPLER [address] [place] [address] Referral ID Status Reason Start Date Expiration Date Visits V isits Requested Authorized [id number] Incomplete 01/31/2018 05/02/2019 1 1 VIORIST Encounter Details Date Type Department Care Team Description 01/31/2018 Notes/Orders Specialty Center Estevan Gil Vari cose veins of 401 Vascular Surgery MD right lower extremity [address] with pain (Primary Dx) STEPHEN Seymour [id number] STEPHEN SEYMOUR [phone] Social History Tobacco Use Types Packs/Day Years Used Date Smoking Tobacco: Every Day Alcohol Use Standard Drinks/Week Comments Not Asked 0 (1 standard drink = 0.6 oz pure alcoho l) Sex Assigned at Date Recorded Not on file documented as of this encounter Plan of Treatment Not on filedocumented as of this encounter Results US VENOUS RIGHT LOWER EXTREM DOPPLER (03/15/2018 3:54 PM BEHAVIORIST) Anatomical Region Laterality Modality Vascular, Leg Ultrasound Specimen (Source) Anatomical Collection Method Collection Time Re ceived Time Location / / Volume Laterality 03/15/2018 3:54 PM BEHAVIORIST Narrative 03/16/2018 2:21 PM BEHAVIORIST [facility] US VENOUS RIGHT LOWER EXTREM DOPPLER 03/15/2018 3:54 PM INDICATION: Follow-up right greater saph enous ablation TECHNIQUE: Routine exam without and with compression, augmentation and duplex utilizing 2D su-scale imaging, Doppler interrogation with color-flow and spectral waveform analysis. COMPARISON: None. FINDINGS: The common femoral, femoral, p opliteal, and segmentally visualized calf veins were evaluated. For unilateral leg studies, the contralateral common femoral vein was included. Ultrasound of these leg veins is negativ e for deep venous thrombosis. There is occlusion of the right greater saphenous vein from 1.5 cm to the saphenofemoral junction to the distal thigh. CONCLUSION: 1. ??Exam is negative for DVT in the rig ht leg. Occlusion of the greater saphenous vein consistent with recent venous ablation. Procedure Note Estevan Gil MD - 03/16/2018Formatti ng of this note might be different from the original. [facility] US VENOUS RIGHT LOWER EXTREM DOPPLER 03/15/2018 3:54 PM INDICATION: Follow-up right greater saph enous ablation TECHNIQUE: Routine exam without and with compression, augmentation and duplex utilizing 2D su-scale imaging, Doppler interrogation with color-flow and spectral waveform analysis. COMPARISON: None. FINDINGS: The common femoral, femoral, p opliteal, and segmentally visualized calf veins were evaluated. For unilateral leg studies, the contralateral common femoral vein was included. Ultrasound of these leg veins is negativ e for deep venous thrombosis. There is occlusion of the right greater saphenous vein from 1.5 cm to the saphenofemoral junction to the distal thigh. CONCLUSION: 1. Exam is negative for DVT in the right leg. Occlusion of the greater saphenous vein consistent with recent venous ablation. Estevan Gil MD [facility] documented in this encounter Visit Diagnoses Diagnosis Varicose veins of right lower extremity with pain - Primary Varicose veins of lower extremities with other complications Varicose veins of right lower extremity with pain Varicose veins of lower extremities with other complications documented in this encounter Care Teams Rib Stiffener And Heel Dipper Relationship Specialty Start Date End Date Meeta Patel MD PCP - General Internal Medicine 01/15/18 05/19/[address] [place] [address] documented as of this encounter
--- OUTSIDE RECORDS SUMMARY | 2021-12-16 11:12 | XMS_ITS | Encounter Summary ---
:1955 Author Organization [facility] Address [address] [place] [address] Care Team Providers Name Role Phone Js Sousa MD Primary Care Provider Reason for Visit Procedure/Equipment (Routine) - Incomplete Specialty Diagnoses / Procedures Referred By Contact Refer red To Contact Diagnoses Varicose veins of left lower extremity with pain Estevan Gil MD Procedures US Venous Competency Lt [address] [place] [address] Referral ID Status Reason Start Date Expiration Date Visits V isits Requested Authorized [id number] Incomplete 05/21/2020 08/20/2021 1 1 Encounter Details Date Type Department Care Team Description 05/25/2020 [facility] Varicose vei ns of Procedure Specialty Center MD Myesha left lower Ultrasound [address] extremity with pain [address] [place] [address] [place], [place] [phone] Social History Tobacco Use Types Packs/Day Years Used Date Smoking Tobacco: Former Smokeless Tobacco: Never Alcohol Use Standard Drinks/Week Comments Not Asked 0 (1 standard drink = 0.6 oz pure alcoho l) Sex Assigned at Date Recorded Not on file documented as of this encounter Progress Notes Estevan Gil MD - 05/25/2020 3:00 PM CST Varicosities off anterior accessory saphenous vein and greater saphenous vein. Risks and benefits ofvenous ablation and phlebectomy discussed with her. She would like to proceed. Orders placed. Pleasecontact patient to schedule. Estevan Gil MD 05/30/2020, 11:38 AM NT LOADER documented in this encounter Plan of Treatment Not on filedocumented as of this encounter Procedures Procedure Name Priority Date/Time Associated Comments Diagnosis US VENOUS COMPETENCY Routine 05/25/2020 3:43 PM Varicose veins of Results for this LT CEMENT LOADER left lower procedure are i n extremity with pain the resu lts section. documented in this encounter Results US Venous Competency Lt (05/25/2020 3:43 PM CEMENT LOADER) Anatomical Region Laterality Modality Vascular, Upper Extremity Ultrasound Specimen (Source) Anatomical Collection Method Collection Time Re ceived Time Location / / Volume Laterality 05/25/2020 3:43 PM CEMENT LOADER Narrative 05/26/2020 3:23 PM CEMENT LOADER [facility] 05/25/2020 EXAM: LEFT LOWER EXTREMITY DEEP AND SUPE RFICIAL VENOUS DUPLEX ULTRASOUND WITH PHYSIOLOGIC TESTING INDICATION: Symptomatic varicose veins. Assess for incompetent veins. TECHNIQUE: Supine and upright ultrasound of the deep and superficial veins with Valsalva and compression augmentation maneuvers. Duplex imaging is performed utilizing su-scale, two-dimensional images, color-flow imaging, Doppler waveform an alysis, and spectral Doppler imaging. INCOMPETENCY CRITERIA: Deep vein reflux reported when greater than 1,000 ms flow reversal. ??Superficial vein reflux reported when greater than 500 ms flow reversal. Builder Operator vein reflux reported as greater than 350 ms flow reversal. DEEP VEIN FINDINGS: ?? LEFT LEG: The common femoral, profunda f emoral, femoral, popliteal, and visualized calf veins are patent and compressible. There is focal incompetence of the common femoral vein.. LEFT SUPERFICIAL VEIN FINDINGS: GREAT SAPHENOUS VEIN: There is incompete nce of the saphenofemoral junction with dilation up to 8 mm proximally. The greater saphenous vein is incompetent throughout the calf. SMALL SAPHENOUS VEIN: Competent from the saphenopopliteal junction to the mid calf. No incompetent perforating veins or abno rmal accessory veins identified. There are numerous varicosities arising from the anterior accessory saphenous vein which is competent. CONCLUSION: 1. ??No deep venous thrombosis of the le ft lower extremity. 2. ??LEFT LEG: The left superficial veno us system is patent, with incompetence of the saphenofemoral junction, the greater saphenous vein throughout the calf and numerous varicosities arising from the anterior accessory saphenous vein.. Procedure Note Estevan Gil MD - 05/26/2020Formatti ng of this note might be different from the original. [facility] II 05/25/2020 EXAM: LEFT LOWER EXTREMITY DEEP AND SUPE RFICIAL VENOUS DUPLEX ULTRASOUND WITH PHYSIOLOGIC TESTING INDICATION: [...] when greater than 500 ms flow reversal. Builder Operator vein reflux reported as greater than 350 ms flow reversal. DEEP VEIN FINDINGS: LEFT LEG: The common femoral, profunda f emoral, femoral, popliteal, and visualized calf veins are patent and compressible. There is focal incompetence of the common femoral vein.. LEFT SUPERFICIAL VEIN FINDINGS: GREAT SAPHENOUS VEIN: There is incompete nce of the saphenofemoral junction with dilation up to 8 mm proximally. The greater saphenous vein is incompetent throughout the calf. SMALL SAPHENOUS VEIN: Competent from the saphenopopliteal junction to the mid calf. No incompetent perforating veins or abno rmal accessory veins identified. There are numerous varicosities arising from the anterior accessory saphenous vein which is competent. CONCLUSION: 1. No deep venous thrombosis of the left lower extremity. 2. LEFT LEG: The left superficial venous system is patent, with incompetence of the saphenofemoral junction, the greater saphenous vein throughout the calf and numerous varicosities arising from the anterior accessory saphenous vein.. Estevan Gil MD [facility] documented in this encounter Visit Diagnoses Diagnosis Varicose veins of left lower extremity w ith pain Varicose veins of lower extremities with other complications documented in this encounter Care Teams Teenage Babysitter Relationship Specialty Start Date End Date Js Sousa MD PCP - General 05/20/201999 [place] [address] documented as of this encounter
--- OUTSIDE RECORDS SUMMARY | 2021-12-16 11:12 | XMS_ITS | Encounter Summary ---
:1955 Author Organization [facility] Address [address] [place] [address] Care Team Providers Name Role Phone Meeta Patel MD Primary Care Provider Reason for Referral Procedure/Equipment (Routine) - Closed Specialty Diagnoses / Procedures Referred By Contact Refer red To Contact Diagnoses Varicose veins of both lower extremities, unspecified whether complicated Estevan Gil MD Procedures Compression Stocking(S) [address] [place] [address] Referral ID Status Reason Start Date Expiration Date Visits Requ ested Visits Authorized [id number] Closed 02/01/2018 05/03/2019 1 1 NING SUPERVISOR Reason for Visit Reason Comments Pre-op Teaching Encounter Details Date Type Department Care Team Description 01/31/2018 Telephone Specialty Center 401 Estevan Gil MD Pre-op Teaching [facility] 401 [facility] [place] [address] [place] [address] [phone] Social History Tobacco Use Types Packs/Day Years Used Date Smoking Tobacco: Every Day Alcohol Use Standard Drinks/Week Comments Not Asked 0 (1 standard drink = 0.6 oz pure alcoho l) Sex Assigned at Date Recorded Not on file documented as of this encounter Nursing Notes Aman Nelson RN - 02/01/2018 8:41 AM CST 8:41 AM 02/01/2018 Spoke with pt-instructions below reviewed with pt. She does not have compression stockings, order is placed and mailed to pt's home address along with vendor list, instructions and Hibiclens. She is aware she will be called to schedule procedure. Aman Nelson RN 02/01/2018, 8:46 AM Cora Reed RN - 01/31/2018 4:[address] Gil entered RFA/phleb orders for pt. Pt still needs: 1) Scheduling 2) Review teaching - paperwork is started and in triage file cabinet 3) Verify address & mail letter/soap Cora Sosa RN 01/31/2018, 4:35 PM Radiofrequency Ablation and Phlebectomy Pre-op Instructions For [facility] at [address] [place] [address] You will have a procedure called radiofrequency ablation (including microphlebectomy). Here is what you need to do to prepare for the procedure. ?? You do not need to see your primary doctor for a history and exam before this procedure. ?? Please eat a light meal 1-2 hours before the procedure. ?? You can take your routine medications before this procedure. This includes aspirin. ?? Please shower both the night before and the morning of your procedure. ?? Use your regular shampoo and soap first. Rinse off. ?? Follow by washing with Hibiclens soap and a clean washcloth (or you can use an antibacterial soaplike Dial). Spend 5 minutes gently scrubbing the affected leg. Rinse completely off your body. ?? Hibiclens soap is for external use only. Do not use Hibiclens soap on your face. ?? Use a freshly laundered towel after each shower. Sleep in freshly laundered pajamas and bed linens. Wear freshly laundered clothing to the procedure. ?? Do not use lotion on the affected leg after you shower. ?? Do not shave the day of the procedure. ?? Wear loose fitting clothes. After the procedure, we will put a compression dressing on the leg. Make sure you wear pants and shoes that are loose enough to fit over a bulky dressing. ?? Leave your jewelry at home. This includes rings, bracelets, necklaces, and earrings. ?? You will need thigh-high compression for 2-3 weeks after your procedure. You can either use compression stockings or a compression dressing (Bandar-Wrap). ?? Arrange for someone to drive you home. The procedure itself takes about 1-1.5 hours with a short recovery period afterward. We recommend that you go home sitting in the back seat of the car with your leg elevated on a pillow. Please remind your septic pump truck driver to bring a pillow. No public transportation canbe used to go home after this procedure. ?? When you get home you must have a responsible adult stay with you the rest of the day. ?? A nurse will call you within one week before your procedure to review these instructions and answer questions. If you have questions for the nurse, please call [phone]. ?? We will give you information to take home on how to care for your leg after surgery. Thank you! [facility] [address] [place] [address] NING SUPERVISOR Cora Sosa, RN - 01/31/2018 4:29 PM CST ----- Message from Estevan Gil MD sent at 01/31/2018 1:18 PM PLANNING SUPERVISOR ----- Incompetent GSV and AASV leading to varicosities. Risks/benefits of venous ablation and phlebectomies d/w pt. She would like to proceed. Orders placed. Please call pt to schedule. Estevan Gil MD 01/31/2018, 1:18 PM NING SUPERVISOR documented in this encounter Plan of Treatment Not on filedocumented as of this encounter Visit Diagnoses Diagnosis Varicose veins of both lower extremities , unspecified whether complicated - Primary documented in this encounter Care Teams Auto Refinisher Relationship Specialty Start Date End Date Meeta Patel MD PCP - General Internal Medicine 01/15/18 05/19/[address] [place] [address] documented as of this encounter
--- OUTSIDE RECORDS SUMMARY | 2021-12-16 11:12 | XMS_ITS | Encounter Summary ---
:1955 Author Organization [employer] Address [address] [place] [address] Care Team Providers Name Role Phone Js Sousa MD Primary Care Provider Reason for Visit Reason Comments RESULTS, TEST Encounter Details Date Type Department Care Team Description 05/31/2020 Telephone Specialty Center 401 Estevan Gil MD RESULTS, TEST Surgery Clinic 401 [facility] 401 [facility] [place] [address] [place] [address] [phone] Social History Tobacco Use Types Packs/Day Years Used Date Smoking Tobacco: Former Smokeless Tobacco: Never Alcohol Use Standard Drinks/Week Comments Not Asked 0 (1 standard drink = 0.6 oz pure alcoho l) Sex Assigned at Date Recorded Not on file documented as of this encounter Nursing Notes Cathy Poole RN - 06/01/2020 11:45 AM CST Spoke to patient. Pre-op teaching completed. Address verified. Instructions and soap mailed. Pt verbalizes understanding of everything we discussed and denies questions at this time. Cathy Poole RN06/01/2020, 11:45 AM FILL GRADER Eileen Haskins - 06/01/2020 8:31 AM CST Pt called back. RN not available. Please call patient back Eileen Moran Haskins 06/01/2020, 8:31 AM Karol Fowler RN - 05/31/2020 4:[address] Gil placed orders for L EVLA with phlebectomies for her varicosities. Pt still needs: 1. Review pre-op education 2.Confirm address and send surgery packet to the mail with soaps. 3. PA 4. Surgery scheduling. Karol Wray RN 05/31/2020, 4:46 PM Karol Fowler RN - 05/31/2020 4:38 PM CST Endovenous Laser Ablation and Phlebectomy Pre-op Instructions For [facility] Surgery [facility] at [address] [place] [address] You will have a procedure called endovenous laser ablation (including microphlebectomy). Here is what you [...] stockings or a compression dressing (Bandar-Wrap). ?? You may get a prescription for oral sedation (calming medication - usually Alprazolam/Xanax). If you do, please fill your prescription before the day of the procedure and bring it with you. Do not take the medication until the nurse tells you to. ?? Arrange for someone to drive you home. The procedure itself takes about 1-1.5 hours with a short recovery period afterward. We recommend that you go home sitting in the back seat of the car with your leg elevated on a pillow. Please remind your tow car driver to bring a pillow. No public transportation (car /bus/Lyft/Uber) can be used to go home after this procedure. ?? When you get home you must have a responsible adult stay with you the rest of the day. ?? A nurse will call you within one week before your procedure to review these instructions and answer questions. If you have questions for the nurse, please call [phone]. ?? We will give you information to take home on how to care for your leg after surgery. Thank you! [facility] [address] [place] [address] FILL GRADER Amelia Up RN - 05/31/2020 2:21 PM CST US Venous Competency Lt ----- Message from Estevan Gil MD sent at 05/30/2020 11:38 AM LANDFILL GRADER ----- Varicosities off anterior accessory saphenous vein and greater saphenous vein. Risks and benefits ofvenous ablation and phlebectomy discussed with her. She would like to proceed. Orders placed. Pleasecontact patient to schedule. Estevan Gil MD 05/30/2020, 11:38 AM FILL GRADER documented in this encounter Plan of Treatment Not on filedocumented as of this encounter Visit Diagnoses Not on filedocumented in this encounter Care Teams Line Director Relationship Specialty Start Date End Date Js Sousa MD PCP - General 05/20/201999 [place] [address] documented as of this encounter
--- OUTSIDE RECORDS SUMMARY | 2021-12-16 11:12 | XMS_ITS | Encounter Summary ---
:1955 Author Organization [facility] Address [address] [place] [address] Care Team Providers Name Role Phone Meeta Patel MD Primary Care Provider Reason for Visit Procedure/Equipment (Routine) - Incomplete Specialty Diagnoses / Procedures Referred By Contact Refer red To Contact Diagnoses Varicose veins of right lower extremity with pain Estevan Gil MD Procedures US Venous Competency Rt [address] [place] [address] Referral ID Status Reason Start Date Expiration Date Visits V isits Requested Authorized [id number] Incomplete 01/16/2018 04/17/2019 1 1 Encounter Details Date Type Department Care Team Description 01/29/2018 Imaging [facility] Specialty Estevan Gil, Varicose veins of Center Ultrasound right lower extremity 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 Risks/benefits of venous ablation and phlebectomies d/w pt. She would like to proceed. Orders placed. Please call pt to schedule. Estevan Gil MD 01/31/2018, 1:18 PM ER AND PAINTER documented in this encounter Plan of Treatment Not on filedocumented as of this encounter Procedures Procedure Name Priority Date/Time Associated Comments Diagnosis US VENOUS COMPETENCY Routine 01/29/2018 9:39 AM Varicose veins of Results for this RT BUMPER AND PAINTER right lower procedure are i n extremity with pain the resu lts section. documented in this encounter Results US Venous Competency Rt (01/29/2018 9:39 AM BUMPER AND PAINTER) Anatomical Region Laterality Modality Vascular, Upper Extremity Ultrasound Specimen (Source) Anatomical Collection Method Collection Time Re ceived Time Location / / Volume Laterality 01/29/2018 9:39 AM BUMPER AND PAINTER Narrative 01/31/2018 12:41 PM BUMPER AND PAINTER [facility] January 29, 2018 [...] when greater than 500 ms flow reversal. Acid Bath Mixer vein reflux reported as greater than 350 [...] when greater than 500 ms flow reversal. Acid Bath Mixer vein reflux reported as greater than 350 [...] 1. No deep venous thrombosis of the righ t lower extremity. 2. RIGHT LEG: The right superficial veno us system is patent, with incompetence of the greater saphenous vein and anterior accessory saphenous vein leading to clinically evident varicosities. Estevan Gil MD [facility] documented in this encounter Visit Diagnoses Diagnosis Varicose veins of right lower extremity with pain Varicose veins of lower extremities with other complications documented in this encounter Care Teams Roller Mill Operator Relationship Specialty Start Date End Date Meeta Patel MD PCP - General Internal Medicine 01/15/18 05/19/[address] [place] [address] documented as of this encounter
--- OUTSIDE RECORDS SUMMARY | 2021-12-16 11:12 | XMS_ITS | Encounter Summary ---
:1955 Author Organization [email or web address] Address [address] [place] [address] Care Team Providers Name Role Phone Meeta Patel MD Primary Care Provider Reason for Visit Procedure/Equipment (Routine) - Incomplete Specialty Diagnoses / Procedures Referred By Contact Refer red To Contact Diagnoses Varicose veins of lower extremity with pain, unspecified laterality Estevan Gil MD Procedures Vascular Surgery [address] [place] [address] Referral ID Status Reason Start Date Expiration Date Visits V isits Requested Authorized [id number] Incomplete 03/08/2018 06/07/2019 1 1 Encounter Details Date Type Department Care Team Description 03/08/2018 Ancillary Procedure Specialty Center Estevan Gil Varicose veins of 401 Vascular Surgery MD Myesha lower extremity with [address] [place], [place] [address] [place], [place] laterality [phone] Social History Tobacco Use Types Packs/Day Years [...] Diagnosis Comme nts US VASCULAR SURGERY Routine 03/08/2018 7:00 AM Varicose veins of Results for this REPAIRER PUMP lower extremity with procedu re are in pain, unspecified the result s laterality section. documented in this encounter Results US Vascular Surgery (03/08/2018 7:00 AM REPAIRER PUMP) Specimen (Source) Anatomical Location Collection Method / Collectio n Time Received Time / Laterality Volume Narrative EXTERNAL RESULTS - 03/08/2018 7:00 AM CS T This is an ultrasound that has been performed by the ordering department and is not read by a Radiologist, see no lobito in encounter for details on study. Estevan Gil MD [facility] Performing Organization Address City/State/ZIP Code Phon e Number EXTERNAL RESULTS documented in this encounter Visit Diagnoses Diagnosis Varicose veins of lower extremity with p ain, unspecified laterality documented in this encounter Care Teams Casting Tester Relationship Specialty Start Date End Date Meeta Patel MD PCP - General Internal Medicine 01/15/18 05/19/201[address] [place] [address] documented as of this encounter
--- OUTSIDE RECORDS SUMMARY | 2021-12-16 11:12 | XMS_ITS | Encounter Summary ---
:1955 Author Organization [facility] Address [address] [place] [address] Care Team Providers Name Role Phone Js Sousa MD Primary Care Provider Reason for Referral Procedure/Equipment (Routine) - Incomplete Specialty Diagnoses / Procedures Referred By Contact Refer red To Contact Diagnoses Varicose veins of left lower extremity with pain Estevan Gil MD Procedures US Venous Competency Lt [address] [place] [address] Referral ID Status Reason Start Date Expiration Date Visits V isits Requested Authorized [id number] Incomplete 05/21/2020 08/20/2021 1 1 LEASING EXAMINER Reason for Visit Reason Comments CONSULT Encounter Details Date Type Department Care Team Description 05/21/2020 Telemedicine Specialty Center Estevan Gil, Makenzie cose veins of left 401 Vascular Surgery lower extremity with [address] pain (Primary Dx) [place] [address] [place], [place] [phone] Social History Tobacco Use Types Packs/Day Years Used Date Smoking Tobacco: Former Smokeless Tobacco: Never Alcohol Use Standard Drinks/Week Comments Not Asked 0 (1 standard drink = 0.6 oz pure alcoho l) Sex Assigned at Date Recorded Not on file documented as of this encounter Progress Notes Estevan Gil MD - 05/21/2020 2:10 PM CST VASCULAR SURGERY FOLLOW-UP DATE OF SERVICE: 05/21/2020 SUBJECTIVE: I am seeing Ms. Sousa for left leg pain and swelling. Briefly the patient is a 65-year-old female I have seen in the past who underwent right leg venous ablation and phlebectomy in 2018.She has worn prescription grade compression socks since that time as previously documented.. She hasbeen quite pleased. Over the last year or so she has had worsening pain in the left leg. She describes prominent varicosities in the left leg. She describes heaviness and aching which gets worse throughout the course of the day. She also describes swelling in the left leg which impact her quality of life including her ability to exercise and do other daily chores. OBJECTIVE: There were no vitals taken for this visit.. She has prominent varicosities on the anterior portion of her left thigh which extend past the knee. She does appear to have some swelling in the left leg as well. ASSESSMENT AND PLAN: Patient with symptomatic left leg varicosities and swelling. She has undergone successful right leg venous ablation and phlebectomies in the past. Her symptoms affect her quality of life including her ability to exercise and do other daily chores. I have suggested obtaining a venous reflux study. Based on her video visit I believe she would be a candidate for phlebectomies at a minimum. I will call her with results of her venous reflux study discuss her treatment options furtherat that time. This visit was conducted via video. Location of clinician clinic. Location of patient home. Billing based on: Complexity Estevan Gil MD This note created using speech-recognition software and may contain unintended word substitutions LEASING EXAMINER documented in this encounter Plan of Treatment Not on filedocumented as of this encounter Results US Venous Competency Lt (05/25/2020 3:43 PM LAND LEASING EXAMINER) Anatomical Region Laterality Modality Vascular, Upper Extremity Ultrasound Specimen (Source) Anatomical Collection Method Collection Time Re ceived Time Location / / Volume Laterality 05/25/2020 3:43 PM LAND LEASING EXAMINER Narrative 05/26/2020 3:23 PM LAND LEASING EXAMINER [facility] 05/25/2020 EXAM: LEFT [...] when greater than 500 ms flow reversal. Paper Products Machine Operator vein reflux reported as greater than [...] when greater than 500 ms flow reversal. Paper Products Machine Operator vein reflux reported as greater than [...] anterior accessory saphenous vein.. Estevan Gil MD [facility] documented in this encounter Visit Diagnoses Diagnosis Varicose veins of left lower extremity w ith pain - Primary Varicose veins of lower extremities with other complications Varicose veins of left lower extremity w ith pain Varicose veins of lower extremities with other complications documented in this encounter Care Teams County Assessor Relationship Specialty Start Date End Date Js Sousa MD PCP - General 05/20/201999 [place] [address] documented as of this encounter
--- OUTSIDE RECORDS SUMMARY | 2021-12-16 11:12 | XMS_ITS | Clinical Summary ---
:1955 Author Organization [facility] Address [address] [place] [address] Care Team Providers Name Role Phone Js Sousa MD Primary Care Provider Source Comments You are receiving this document as you are listed as the primary care provider,follow-up provider, or the patient has been referred to you for consultation.This is in compliance with the Medicare and Medicaid EHR Incentive Program,which states Providers who transition their patient to another setting of careor provider of care or refers their patient to another provider of care shouldprovide summarycare record for each transition of care or referral. [facility] Allergies No known active allergies Medications Medication Sig Dispensed Refills Start Date End Date Status HYDROCHLOROTHIAZIDE OR 0 Active Cholecalciferol (VITAMIN 0 Active D OR) CALCIUM OR 0 Active Ruth-3 Fatty Acids (FISH 0 Active OIL) 1000 MG capsule estradiol (ESTRACE) 0.1 Insert 1 g 42.5 g 4 05/12/2021 Active MG/GM vaginal cream vaginally two times a week. Initially use nightly for 2 weeks diazePAM (VALIUM) 10 MG Insert 1 tablet 20 Tablet 2 05/12/2021 Active tablet into vagina 1 hour before intercourse. Social History Tobacco Use Types Packs/Day Years [...] Assigned at Date Recorded Not on file Last Filed Vital Signs Vital Sign Reading Time Taken Comments Blood Pressure 165/94 03/15/2018 4:15 PM THREAD GRINDER TOOL Pulse 59 03/15/2018 4:15 PM THREAD GRINDER TOOL Temperature 36.8 ??C (98.2 ??F) 03/15/2018 4:15 PM THREAD GRINDER TOOL Respiratory Rate 16 05/16/2003 1:15 PM THREAD GRINDER TOOL Oxygen Saturation - - Inhaled Oxygen Concentration - - Weight 93.6 kg (206 lb 6.4 oz) 01/18/2018 2:11 PM CDT Height 162.6 cm (5' 4) 01/18/2018 2:11 PM CDT Body Mass Index 35.43 01/18/2018 2:11 PM CDT Plan of Treatment Health Maintenance Due Date Last Done Comments Hep C Screening (Preventive 1955 Services) Medicare Welcome Visit 1955 COVID-19 Vaccine (#1) 1955 Cholesterol 1998 Colon Cancer Screening Plan 09/21/2006 09/20/2006 Due Mammogram 01/29/2014 01/29/2013 Dexa 2018 Influenza (#1) 2021 12/07/2020, 11/10/2019, 12/16/2018, Additional history exists DTaP/Tdap/Td (2 - Tdap) 12/28/2027 12/27/2017 Zoster/Shingles Completed 01/01/2019, 10/27/2018 Pneumococcal 65+ Yrs Completed 12/19/2019, 12/16/2018 HepA Aged Out No longer eligib le based on patient 's age to complete this topic HepB Aged Out No longer eligib le based on patient 's age to complete this topic Hib Aged Out No longer eligib le based on patient 's age to complete this topic IPV (Polio) Aged Out No longer eligib le based on patient 's age to complete this topic MCV4 Aged Out No longer eligib le based on patient 's age to complete this topic Insurance Payer Benefit Plan Subscriber ID Effective Phone Address Typ e / Group Dates [employer] MEDICARE [id number] 2021-Pres [phone] [address] Medicare ADVANTAGE ent [phone] [place] [address] Care Teams Film Or Tape Librarian Relationship Specialty Start Date End Date Js Sousa MD PCP - General 05/20/201999 [place] [address]
--- OUTSIDE RECORDS SUMMARY | 2021-12-16 11:12 | XMS_ITS | Encounter Summary ---
:1955 Author Organization [facility] Address [address] [place] [address] Care Team Providers Name Role Phone Meeta Patel MD Primary Care Provider Reason for Visit Reason Comments Questions Encounter Details Date Type Department Care Team Description 01/21/2018 Telephone Specialty Center 401 Estevan Gil MD Questions Surgery Clinic 401 [facility] 401 [facility] [place] [address] [place] [address] [phone] Social History Tobacco Use Types Packs/Day Years Used Date Smoking Tobacco: Every Day Alcohol Use Standard Drinks/Week Comments Not Asked 0 (1 standard drink = 0.6 oz pure alcoho l) Sex Assigned at Date Recorded Not on file documented as of this encounter Nursing Notes Aman Nelson RN - 01/21/2018 9:15 AM CDT 9:15 AM 01/21/2018 Spoke with pt-reviewed recovery info below with pt. She would like to proceed with formal u/s so she can hopefully get this done before the end of the year. Call is transferred to Imaging to schedule procedure. Once this is done and it shows the vein is incompetent, will place orders. She may need a PA before this can be scheduled. Pt is ok with plan. ??? Please arrange for someone to drive you home. When you get home, have a responsible adult stay with you for the day. ??? Elevate the affected leg after you get home. It is important to elevate the leg above the level of your heart until bedtime. For example, lie on the couch with the leg elevated on several pillows. Try to walk around the house for a few minutes each hour until bedtime. ??? The day after the procedure, you may increase your activity. Be as active as you wish, as long as you are comfortable. Avoid standing still or sitting with your legs down for any length of time. This will cause blood to pool in your legs, resulting in more swelling and discomfort. ??? Two days after the procedure, you can remove the compression stocking or jack wrap and take a shower. Avoid baths for 1 week. ??? Wearing your compression stockings after the procedure: o For the first week, wear the compression stocking 24 hours a day (except to shower). o During second week, wear the stocking during waking hours. o After the second week, wear the stocking as needed. ??? Bruising is normal. This typically takes a few weeks to fade. ??? You may feel a tight, pulling sensation in your inner thigh or some pain. This is normal and usually takes a few weeks to get better completely. You may also have an area of firmness and tendernessat one of the varicose vein sites. This is not unusual, but may take a few weeks to get better. It is safe to drive a vehicle when you are no longer taking narcotics and you can confidently presson the brake. This is usually in about 24-48 hours. ??? It is common to be able to resume most of your usual activities (including work) the following day, if necessary. Some patients find it helpful to take a day or two off from work. Aman Nelson RN 01/21/2018, 9:26 AM Elena Berrios - 01/21/2018 8:42 AM CDT Pt would like to talk to a nurse about recovery time of EVLA. Please call. Elena Berrios 01/21/2018, 8:43 AM documented in this encounter Plan of Treatment Not on filedocumented as of this encounter Visit Diagnoses Not on filedocumented in this encounter Care Teams Program Advocate Relationship Specialty Start Date End Date Meeta Patel MD PCP - General Internal Medicine 01/15/18 05/19/201[address] [place] [address] documented as of this encounter
--- OUTSIDE RECORDS SUMMARY | 2021-12-16 11:12 | XMS_ITS | Encounter Summary ---
:1955 Author Organization [facility] Address [address] [place] [address] Care Team Providers Name Role Phone Js Sousa MD Primary Care Provider Reason for Visit Reason Comments Procedure pre-op call Encounter Details Date Type Department Care Team Description 08/17/2020 Telephone Specialty Center 401 Estevan Gil, Procedure (pre-op call) Vascular Surgery [address] [place] [address]. [address] [place] [address] [place], [place] [phone] [address] Social History Tobacco Use Types Packs/Day Years Used Date Smoking Tobacco: Former Smokeless Tobacco: Never Alcohol Use Standard Drinks/Week Comments Not Asked 0 (1 standard drink = 0.6 oz pure alcoho l) Sex Assigned at Date Recorded Not on file documented as of this encounter Nursing Notes Bárbara Burk LPN - 08/17/2020 10:40 AM CDT You are scheduled to have a left EVLA and phlebectomies procedure with Estevan Gil MD on 08/20/20. Please arrive at 7 AM. ?? A [...] at home ?? Please remember to bring your oral sedation medication (if prescribed) ?? Please remember to bring a pillow ?? Please arrange for someone to drive you home ?? No public transportation can be used to go home after the procedure. This includes cab/bus/Lyft/Uber. ?? When you get home you must have a responsible adult stay with you the rest of the day. Bárbara Burk LPN 08/17/2020, 10:40 AM documented in this encounter Plan of Treatment Not on filedocumented as of this encounter Visit Diagnoses Not on filedocumented in this encounter Care Teams Neon Installer Relationship Specialty Start Date End Date Js Sousa MD PCP - General 05/20/201999 [place] [address] documented as of this encounter
--- OUTSIDE RECORDS SUMMARY | 2021-12-16 11:12 | XMS_ITS | Encounter Summary ---
:1955 Author Organization [facility] Address [address] [place] [address] Care Team Providers Name Role Phone Meeta Patel MD Primary Care Provider Reason for Referral Procedure/Equipment (Routine) - Incomplete Specialty Diagnoses / Procedures Referred By Contact Refer red To Contact Diagnoses Varicose veins of lower extremity with pain, unspecified laterality Estevan Gil MD Procedures US Vascular Surgery 401 [place] [address] Referral ID Status Reason Start Date Expiration Date Visits V isits Requested Authorized [id number] Incomplete 03/08/2018 06/07/2019 1 1 EONTOLOGIST Reason for Visit Reason Comments Procedure R RFA Procedure/Equipment (Routine) - Incomplete Specialty Diagnoses / Procedures Referred By Contact Refer red To Contact Diagnoses Varicose veins of right lower extremity with pain Estevan Gil MD Procedures Case/Procedure Request - General/Vascula 401 [place] [address] Referral ID Status Reason Start Date Expiration Date Visits V isits Requested Authorized [id number] Incomplete 01/31/2018 07/30/2018 1 1 Encounter Details Date Type Department Care Team Description 03/08/2018 Office Visit Specialty Center Estevan Gil Vari cose veins of lower extremity with pain, unspecified laterality (Primary Dx); 401 Vascular Surgery MD Varicose veins of right lower extremity with complications [address] [place] [address] [place], [place] [phone] Social History Tobacco Use Types Packs/Day Years Used Date Smoking Tobacco: Former Alcohol Use Standard Drinks/Week Comments Not Asked 0 (1 standard drink = 0.6 oz pure alcoho l) Sex Assigned at Date Recorded Not on file documented as of this encounter Last Filed Vital Signs Vital Sign Reading Time Taken Comments Blood Pressure 137/90 03/08/2018 7:10 AM PALAEONTOLOGIST Pulse 61 03/08/2018 7:10 AM PALAEONTOLOGIST Temperature - - Respiratory Rate - - Oxygen Saturation - - Inhaled Oxygen Concentration - - Weight - - Height - - Body Mass Index - - documented in this encounter Patient Instructions Patient InstructionsVang, Jonathan Uribe LPN - 03/08/2018 7:00 AM CST Radiofrequency Ablation Discharge Instructions ??? Please arrange for someone to drive you home. We recommend that you go home sitting in the back seat of the car with the affected leg elevated on a pillow. (Remember to have your milk delivery driver bring a pillow.) When you get home, have a responsible [...] resulting in more swelling and discomfort. ??? You may have some bleeding through the dressings and compression stocking. Do not panic. If a blood spot develops and seems to be getting larger, lie down with your leg elevated above your heart for 30-60 minutes. Apply direct pressure with your hand or a dry washcloth for 5-10 minutes. Almost allbleeding stops with these simple measures. ??? Two days after the procedure, you can remove the compression stocking or farida wrap and take a shower. Avoid baths [...] take a few weeks to get better. ??? Patients sometimes get a prescription for pain pills. If you have a prescription, take the pillsonly as needed. Most patients are comfortable and fully active 24 to 48 hours after the procedure. If you did not get a prescription for a pain medication or after you have used prescription pain medication, you may use an moqv-exe-tmoizfy pain medication such as Tylenol or ibuprofen. *Unless your primary care doctor told you to avoid taking ibuprofen, you can begin taking it as recommended on the bottle starting the day of your procedure. ??? It is safe to drive a vehicle when you are no longer taking narcotics and you can confidently press on the brake. This is usually in about 24-48 hours. ??? It is common to be able to resume most of your usual activities (including work) the following day, if necessary. Some patients find it helpful to take a day or two off from work. ??? Call the surgeon or nurse if you have: o Fever higher than 101.5??F (38.61 C) o Uncontrolled bleeding from the incision that does not get better when you elevate the leg or apply direct pressure. o Unusual redness, swelling, or drainage. o Pain that is not relieved by rest or pain medication. ??? You will have a follow-up appointment with your surgeon one week after your procedure. If you had a laser procedure, you will need an ultrasound the same day before the appointment with your surgeon. Do not hesitate to call if you have questions. We want your recovery to be as smooth as possible. Please call [phone] and ask to speak to a nurse. After office hours, call the Careline at . EONTOLOGIST documented in this encounter Progress Notes Estevan Gil MD - 03/08/2018 7:00 AM CST DATE OF SURGERY: 03/08/2018 STAFF SURGEON: Estevan Gil MD WAITER/WAITRESS CLUB: None PREOPERATIVE DIAGNOSIS: painful, symptomatic right leg varicosities POSTOPERATIVE DIAGNOSIS: Same NAME OF OPERATION: Radiofrequency of right greater saphenous vein with stab- assisted phlebectomies with a total of >20 incisions. INDICATION FOR PROCEDURE: The patient is a 62 y.o. female with a longstanding history of pain in herright leg with painful, symptomatic right leg varicosities. The patient has tried and failed compression stockings. The patient had an ultrasound demonstrating incompetence of the greater saphenous vein. The risks and benefits of venous ablation (including the risk of DVT and PE) as well as alternatives were discussed with the patient. The patient understands the potential complications and wishes toproceed. OPERATIVE COURSE: The patient was taken to the operating room where monitored sedation was performed. The right leg was prepped and draped in sterile fashion. I had marked out the course of the greatersaphenous vein with ultrasound preoperatively. The saphenous vein was accessed mid-thigh with a micropuncture needle after anesthetizing the overlying skin with tumescent anesthesia. A micro wire was advanced through the saphenous vein and micro sheath advanced over this. The RF probe was then inserted. The RF probe was withdrawn to roughly 3 cm distal to the saphenofemoral junction and an image saved at this point. I then tumesced the course of the saphenous vein with a total of roughly 200 mL of tu mescent anesthesia. The vein was well below a centimeter below the skin throughout its course. A total of 10 cm was then treated for 60 seconds with a total of 3 cycles. The patient tolerated this welland the probe was subsequently removed. I then proceeded with stab-assisted phlebectomies with a number of varicosities throughout the thigh and calf. A total of over 20 incisions were made after anesthetizing the overlying skin with tumescent anesthesia. The veins were thin walled. At the end of the procedure, gentle pressure was held for hemostasis. The leg was wrapped with bacitracin ointment and wrapped with sterile Webril and an FARIDA wrap from the foot to the groin. The patient was taken to the recovery room in stable condition. ESTIMATED BLOOD LOSS: 1 mL. There were no immediate complications at the end of procedure. I updated her significant other on her progress. I attest that I was present for and participated in the wiggins portions of this procedure(s)in compliance with the Health Care Financing Administration Teaching Physician Guidelines. Estevan Gil MD This document was electronically signed by Estevan Gil MD at 8:24 AM on 03/08/2018. EONTOLOGIST documented in this encounter Plan of Treatment Not on filedocumented as of this encounter Results US Vascular Surgery (03/08/2018 7:00 AM PALAEONTOLOGIST) Specimen (Source) Anatomical Location Collection Method / Collectio n Time Received Time / Laterality Volume Narrative EXTERNAL RESULTS - 03/08/2018 7:00 AM CS T This is an ultrasound that has been performed by the ordering department and is not read by a Radiologist, see no lobito in encounter for details on study. Estevan Gil MD [facility] [place] Performing Organization Address City/State/ZIP Code Phon e Number EXTERNAL RESULTS documented in this encounter Visit Diagnoses Diagnosis Varicose veins of lower extremity with p ain, unspecified laterality - Primary Varicose veins of lower extremity with p ain, unspecified laterality documented in this encounter Care Teams Soundscriber Mechanic Relationship Specialty Start Date End Date Meeta Patel MD PCP - General Internal Medicine 01/15/18 05/19/201999 [place] [address] documented as of this encounter
--- OUTSIDE RECORDS SUMMARY | 2021-12-16 11:12 | XMS_ITS | Encounter Summary ---
:1955 Author [facility] Address [address] [place] [address] Care Team Providers Name Role Phone Js Sousa MD Primary Care Provider Reason for Referral Procedure/Equipment (Routine) - Incomplete Specialty Diagnoses / Procedures Referred By Contact Refer red To Contact Diagnoses Varicose veins of lower extremity with pain, unspecified laterality Estevan Gil MD Procedures US Vascular Surgery [address] [place] [address] Referral ID Status Reason Start Date Expiration Date Visits V isits Requested Authorized [id number] Incomplete 08/20/2020 11/19/2021 1 1 Reason for Visit Reason Comments Endovenous Laser Ablation left leg Procedure/Equipment (Routine) - Incomplete Specialty Diagnoses / Procedures Referred By Contact Refer red To Contact Diagnoses Varicose veins of left lower extremity with pain Estevan Gil MD Procedures Case/Procedure Request - General/Vascula [address] [place] [address] Referral ID Status Reason Start Date Expiration Date Visits V isits Requested Authorized [id number] Incomplete 05/30/2020 11/26/2020 1 1 Encounter Details Date Type Department Care Team Description 08/20/2020 Office Visit Specialty Center Estevan Gil Vari coskit veins of lower extremity with pain, unspecified laterality (Primary Dx); 401 Vascular Surgery Varicose veins of left lower extremity w ith complications [address] [place] [address] [place] [phone] Social History Tobacco Use Types Packs/Day Years Used Date Smoking Tobacco: Former Smokeless Tobacco: Never Alcohol Use Standard Drinks/Week Comments Not Asked 0 (1 standard drink = 0.6 oz pure alcoho l) Sex Assigned at Date Recorded Not on file documented as of this encounter Patient Instructions Patient InstructionsVang, See VIRI Uribe - 08/20/2020 7:00 AM CDT Endovenous Laser Ablation and Phlebectomy Discharge Instructions ??? Please arrange for someone to drive you home. We recommend that you go home sitting in the back seat of the car with the affected leg elevated on a pillow. (Remember to have your otr flatbed driver bring a pillow.) When you get [...] prescription pain medication, you may use an ljxl-myx-srjdimt pain medication such as Tylenol or ibuprofen. [...] be as smooth as possible. Please call [phone] and ask to speak to a nurse. After office hours, call the Careline at . documented in this encounter Progress Notes Estevan Gil MD - 08/20/2020 7:00 AM CDT DATE OF SURGERY: 08/20/2020 STAFF SURGEON: Estevan Gil MD FLYING INSTRUCTOR: None PREOPERATIVE DIAGNOSIS: painful, symptomatic left leg varicosities POSTOPERATIVE DIAGNOSIS: Same NAME OF OPERATION: Endovenous Laser Ablation of left greater saphenous vein with stab-assisted phlebectomies with a total of >20 incisions. INDICATION FOR PROCEDURE: The patient is a 65 y.o. female with a longstanding history of pain in herleft leg with painful, symptomatic left leg varicosities. The patient has tried and failed compression stockings. The patient had an ultrasound demonstrating incompetence of the greater saphenous vein and proximals anterior accessory saphenous vein. The risks and benefits of endovenous laser ablation (including the risk of DVT and PE) as well as alternatives were discussed with the patient. The patient understands the potential complications and wishes to proceed. OPERATIVE COURSE: The patient was taken to the operating room where monitored sedation was performed. The left leg was prepped and draped in sterile fashion. I had marked out the course of the greater saphenous vein with ultrasound preoperatively. The great saphenous vein was accessed at the knee witha micropuncture needle after anesthetizing the overlying skin with tumescent anesthesia. A micro wire was advanced through the saphenous vein and micro sheath advanced over this. An 0.035 wire was thenadvanced. The laser sheath was then inserted and the laser probe inserted. The laser probe was withdrawn to the mid thigh. I then tumesced the course of the saphenous vein with a total of roughly 100 mL of tumescent anesthesia. The vein was well below a centimeter below the skin throughout its course.A total of 11 cm was then treated with a total of 483 joules. The patient tolerated this well and the laser probe was subsequently removed. The proximal anterior accessory saphenous vein was also incompetent. It was quite tortuous however. Therefore was accessed with a 21 gauge needle and injected with a total of roughly 2 cc of 1% ST S. I then proceeded with stab-assisted phlebectomies with a numberof varicosities throughout the thigh and calf. A [...] electronically signed by Estevan Gil MD at 8:12 AM on 08/20/2020. documented in this encounter Plan of Treatment Not on filedocumented as of this encounter Results US Vascular Surgery (08/20/2020 6:56 AM CDT) Specimen (Source) Anatomical Location Collection Method / Collectio n Time Received Time / Laterality Volume Narrative EXTERNAL RESULTS - 08/20/2020 6:56 AM CD T This imaging has been performed by the ordering department and is not read by a Radiologist, see notes in encounter for details on study. Estevan Gil MD [facility] Performing Organization Address City/State/ZIP Code Phon e Number EXTERNAL RESULTS documented in this encounter Visit Diagnoses Diagnosis Varicose veins of lower extremity with p ain, unspecified laterality - Primary Varicose veins of lower extremity with p ain, unspecified laterality documented in this encounter Care Teams Make Up Arranger Relationship Specialty Start Date End Date Js Sousa MD PCP - General 05/20/201999 [place] [address] documented as of this encounter
--- OUTSIDE RECORDS SUMMARY | 2021-12-16 11:12 | XMS_ITS | Encounter Summary ---
:1955 [facility] Address [address] [place] [address] Care Team Providers Name Role Phone Unassigned, Provider Primary Care Provider Unavailable Encounter Details Date Type Department Care Team Description 11/24/2002 Telephone None Unknown, Physici an [address] [place] [address] (Wo rk) Social History Tobacco Use Types Packs/Day Years Used Date Smoking Tobacco: Never Assessed Sex Assigned at Date Recorded Not on file documented as of this encounter Progress Notes Unknown, Physician - 11/24/2002 12:00 AM CDT documented in this encounter Plan of Treatment Not on filedocumented as of this encounter Visit Diagnoses Not on filedocumented in this encounter Care Teams Financial Compliance Examiner Relationship Specialty Start Date End Date Unassigned, Provider PCP - General 11/20/02 01/14/[address] [place] [address] documented as of this encounter
--- OUTSIDE RECORDS SUMMARY | 2021-12-16 11:12 | XMS_ITS | Encounter Summary ---
:1955 Author Organization [facility] Address [address] [place] [address] Care Team Providers Name Role Phone Js Sousa MD Primary Care Provider Reason for Visit Procedure/Equipment (Routine) - Incomplete Specialty Diagnoses / Procedures Referred By Contact Refer red To Contact Diagnoses Varicose veins of left lower extremity with pain Estevan Gil MD Procedures US VENOUS LEFT LOWER EXTREM DOPPLER [address] [place] [address] Referral ID Status Reason Start Date Expiration Date Visits V isits Requested Authorized [id number] Incomplete 05/30/2020 08/29/2021 1 1 Encounter Details Date Type Department Care Team Description 09/03/2020 [facility] Varicose vei [facility] of Procedure Specialty [facility] MD Myesha left lower Ultrasound [address] extremity with pain [address] [place] [address] [place], [place] [phone] Social History Tobacco Use Types Packs/Day Years [...] Priority Date/Time Associated Diagnosis Comme nts US LOWER EXTREMITY Routine 09/03/2020 1:27 PM Varicose veins o f Results for this LT VENOUS DOPPLER CDT left lower extremity pr ocedure are in with pain the results section. documented in this encounter Results US VENOUS LEFT LOWER [...] with recent venous ablation. Estevan Gil MD [facility] documented in this encounter Visit Diagnoses Diagnosis Varicose veins of left lower extremity w ith pain Varicose veins of lower extremities with other complications documented in this encounter Care Teams Food Cashier Relationship Specialty Start Date End Date Js Sousa MD PCP - General 05/20/201999 [place] [address] documented as of this encounter
--- OUTSIDE RECORDS SUMMARY | 2021-12-16 11:12 | XMS_ITS | Encounter Summary ---
:1955 Author Organization [employer] Address [address] [place] [address] Care Team Providers Name Role Phone Js Sousa MD Primary Care Provider Reason for Referral Therapies (Routine) - New Request Specialty Diagnoses / Procedures Referred By Contact Refer red To Contact Diagnoses Myalgia of pelvic floor High-tone pelvic floor dysfunction Dyspareunia, female Alcira Tomlinson MD [address] [facility] [address] [place] [address] Referral ID Status Reason Start Date Expiration Date Visits V isits Requested Authorized [id number] New Request 05/12/2021 05/12/2022 1 1 Scheduling Instructions This order is your clinician's recommend ation for a service and is not an insurance referral which authorizes payment. The r ecommended service and/or location may not be covered by your insurance plan. Please c all the number on your insurance card to find out your specific benefits and coverage for the recommended services and/or location. If you need help scheduling the recommen ded services, please ask your clinician's staff to assist you. [employer]ER [employer] Reason for Visit Reason Comments CONSULT Pain with intercourse, Vagin al pressure. Encounter Details Date Type Department Care Team Description 05/12/2021 Office Visit [facility] Alcira Tomlinson MD Vaginal atrophy (Primary Dx); Women UroGynecology [address] [facility] Myalgia of pelvic floor; [address] High-tone pelvic floor dysfunction; [place] [address] Dyspareunia, female [place] [address] [phone] Social History Tobacco Use Types Packs/Day Years [...] as of this encounter Patient Instructions Patient InstructionsRuthie Carleenkevin Moran MA - 05/12/2021 2:00 PM CST Your follow up appointment will be scheduled with one of the urogynecology care team members. This may be one of our physician assistants or nurse practitioners. They are always in direct communicationwith your physician who remains responsible for your urogynecologic care at [facility] . For Xray, CT test, and Ultrasound results, unless specifically noted, the results of these tests will be discussed at your next visit with your provider. Thank you for continuing to trust us with your care. We are your partner. Get Cost of Care Estimates - [phone] The health insurance marketplace has changed dramatically in the last few years. Our cost of care service will provide estimates over the phone for treatments or procedures billed through [facility]. To receive a cost estimate, simply call [phone] during regular business hours. If you have insurance coverage, you will need to verify your policy of coverage with your health planby calling the number located on the back of your insurance card and talking to member services. Today we made the plan for pelvic floor PT- referral printed restart vaginal estrogen use vaginal valium to help pelvic floor muscles relax prior to intercourse [employer]CHER [employer]OW [employer] documented in this encounter Progress Notes Alcira Tomlinson MD - 05/12/2021 2:00 PM CST [facility] Urogynecology New Patient Consult Sandy Sousa : 1955 Date of Service: 05/12/2021 Chief Complaint: Chief Complaint Patient presents with ??? CONSULT Pain with intercourse, Vaginal pressure. HPI: Sandy Sousa is a 66 y.o. menopausal female who presents today for consult and evaluation regarding: Dyspareunia She is a patient of my former practice She underwent surgery with me 09/2019 including Sacrospinus ligament suspension, Anterior and Posterior colporrhaphy, Perineorrhaphy and Cystoscopy for management of stage III prolapse - vaginal vault, cystocele and rectocele She had a stage III prolapse to +2 cm cystocele, postop did well but had recurrent cystocele to -1cm- referred to PT at [facility] Since her last visit she was seen by Dr Valle who noted well supported vagina, pelvic floor spasmsand recommended urostym. The patient did not schedule this related to her interactions with the clinic - one urostym was cancelled and she was told if 2 in a row were missed she would need to repeat them all etc. She talked to her PT who recommended silicone lubricant and follow up with me. Today she presents for evaluation of - pain with intercourse - feeling of tenderness and something pushing in the LLQ with intercourse - pain is deeper, not with insertion, feels muscular - pain is just during intercourse but may have pelvic cramping for less than hour after - she was concerned there is some recurrent prolaspe but no significant change from prior exam- onlynotes more heaviness when she has overdone her activity, she is working on weight loss - other than during intercourse she will not have significant symptoms only if she has over done it physically - she did PT at [facility] for recurrent cystocele - she was recommended to have silicone lubricant which has helped some, no longer using vaginal estrogen Obstetric History: OB History Para Term AB Living 3 2 2 0 1 0 SAB IAB Ectopic Multiple Live Births 1 0 0 0 2 Obstetric Comments x 2 Medical History: Past Medical History: Diagnosis Date ??? HTN (hypertension) ([facility]) Surgical History: Past Surgical History: Procedure Laterality Date ??? OTHER SURGICAL HISTORY SSLS, A&P repair 09/2019 Dr Tomlinson ??? TONY AND BSO 1978 Family History: No family history on file. Social History: Social History Socioeconomic History ??? Marital status: Spouse name: Not on file ??? Number of children: Not on file ??? Years of education: Not on file ??? Highest education level: Not on file Occupational History ??? Not on file Tobacco Use ??? Smoking status: Former Smoker ??? Smokeless tobacco: Never Used Vaping Use ??? Vaping Use: Never used Substance and Sexual Activity ??? Alcohol use: Never ??? Drug use: Not on file ??? Sexual activity: Not on file Other Topics Concern ??? Not on file Social History Narrative ??? Not on file Social Determinants of Health Financial Resource Strain: Not on file Food Insecurity: Not on file Transportation Needs: Not on file Physical Activity: Not on file Intimate Partner Violence: Not on file Housing Stability: Not on file Medications: Current Outpatient Medications Medication ??? CALCIUM OR ??? Cholecalciferol (VITAMIN D OR) ??? HYDROCHLOROTHIAZIDE OR ??? [place]-3 Fatty Acids (FISH OIL) 1000 MG capsule Allergies: No Known Allergies Examination: There were no vitals taken for this visit. General: well appearing in no distress, alert and oriented. HEENT: head is atraumatic, neck supple CV: extremities are warm and well perfused, no peripheral edema noted Lungs: respirations are unlabored, no wheezing External genitalia: normal in appearance, no rashes, lesions vagina: atrophic Cervix: surgically absent Uterus: surgically absent Adnexa: ovaries are surgically absent Pelvic floor muscles: increased tone and tenderness bilaterally, palpation reproduces pain with intercourse Pelvic floor muscle strength (oxford scale): 2 POP-Q: Aa:-1 TVL:6 Assessment: Diagnosis and Associated Orders ICD-10-CM 1. Vaginal atrophy N95.2 2. Myalgia of pelvic floor M79.18 Physical Therapy 3. High-tone pelvic floor dysfunction N94.89 Physical Therapy 4. Dyspareunia, female N94.10 Physical Therapy Plan: Today we discussed the likely cause of her pain with intercourse is related to high tone pelvic floor muscle dysfunction. She has been continue to do Kegel's to prevent worsening of her cystocele. We discussed that her pelvic floor muscles cannot relax. At this time I want her to stop doing Kegel's and to restart PT to work on pelvic floor relaxation. She was given a PT order she will for do PT where she has done in the past at [facility] We discussed that the vagina is a little short on exam but she does not feel that that is the issue Recommend to restart vaginal estrogen to help with dyspareunia related to vaginal dryness, she can continue to use her silicone lubricant Also discussed trial of vaginal Valium to help the pelvic floor muscles relax prior to intercourse and this was prescribed today. All questions answered Follow-up: in 6 month(s) Time stamp Time spent on patient care including - review of previous records - preparation for visit - ordering medications, labs or imaging - documenting visit - discussion of care with another health respiratory care technician if indicated - direct face to face time with patient including obtaining relevant history, physical exam and discussion of plan of care Total time separate from any procedure that was performed was 25 minutes spent including some or allof above listed required for care of patient talking about diagnosis, treatment and plan of care outside of usual preventive care with the patient as listed in the treatment portion of the note Alcira Tomlinson MD 05/12/2021, 5:25 PM Alcira Tomlinson MD [facility] Urogynecology/Female Pelvic Medicine and Reconstructive Surgery This note contains medical terminology which is meant for communication between health care physicians and providers. Please note that vocabulary/phrasing/abbreviations may not carry the same definitions as they would in normal conversational speech. This note was created using medical dictation software. Please excuse any typographical errors in piano assembler. [employer] documented in this encounter Plan of Treatment Scheduled Referrals Name Type Priority Associated Diagnoses Order S [facility] Physical Therapy Referral Routine Myalgia of pelv ic floor Ordered: 05/12/2021 High-tone pelvic floor dysfunction Dyspareunia, female documented as of this encounter Visit Diagnoses Diagnosis Vaginal atrophy - Primary Postmenopausal atrophic vaginitis Myalgia of pelvic floor High-tone pelvic floor dysfunction Other specified disorders of female cindy erin organs Dyspareunia, female Dyspareunia documented in this encounter Care Teams Sledger Relationship Specialty Start Date End Date Js Sousa MD PCP - General 05/20/201999 [place] [address] documented as of this encounter
--- OUTSIDE RECORDS SUMMARY | 2021-12-16 11:13 | XMS_ITS | Encounter Summary ---
:1955 Author Organization [employer] Address [address] [place] [address]. [place] [address] Care Team Providers Name Role Phone Unavailable Primary Care Provider Unavailable Encounter Details Date Type Department Care Team Description 08/15/2019 Orders Only [facility] Alcira Tomlinson MD Encounter for [facility] Main OR [facility] screening for other [address] [facility] viral diseases [address] (Primary Dx) [address] [place] [address] [phone] (Wo rk) Social History Tobacco Use Types Packs/Day Years Used Date Former Smoker Cigarettes 1 5 Quit: 11/25/19 08 Smokeless Tobacco: Never Used Alcohol Use Standard Drinks/Week Comments No 0 (1 standard drink = 0.6 oz pure alcoho l) Sex Assigned at Date Recorded Female 07/17/2021 8:09 AM CDT documented as of this encounter Plan of Treatment Not on filedocumented as of this encounter Visit Diagnoses Diagnosis Encounter for screening for other viral diseases - Primary documented in this encounter
--- OUTSIDE RECORDS SUMMARY | 2021-12-16 11:13 | XMS_ITS | Clinical Summary ---
:1955 Author Organization [place] Address [address] [facility] [place] [address] Care Team Providers Name Role Phone Js Sousa MD Primary Care Provider [phone] Berta BlackwellM, Podiatry/Foot and Ankle Unavailable Surgery Allergies No known active allergies Medications Medication Sig Dispensed Refills Start Date End Date Status multivitamin w/minerals Take 1 tablet by 0 Active (THERA-VIT-M) tablet mouth daily VITAMIN D, Take 1,000 Units 0 Ac tive CHOLECALCIFEROL, PO by mouth daily order for DMEIndications: Please dispense up to 3 pair s of knee high compression stockings at 20-30 mmHg. 3 Device 0 08/29/2016 Act marie Left foot pain, Tailor's bunion of left foot, Home Medical Equipment: Bursitis of foot, left 1. [facility] - [address] [facility], 2. [facility] -[address] [place] Dewar-3 Fatty Acids Take 1,200 mg by 0 Active (OMEGA 3 PO) mouth daily Calcium Citrate-Vitamin D Take 1 tablet by 0 Active (CALCIUM CITRATE CHEWY mouth daily BITE PO) HYDROCHLOROTHIAZIDE PO Take 25 mg by 0 Active mouth daily aspirin 81 MG EC tablet Take 81 mg by 0 Active mouth daily glucosamine-chondroitin Take 1 capsule 0 Active 500-400 MG CAPS per by mouth daily capsule ibuprofen (ADVIL/MOTRIN) Take 1 tablet 45 tablet 0 10/09/2019 Active 600 MG tabletIndications: (600 mg) by Vaginal vault prolapse, mouth every 6 Cystocele, midline, hours as needed Rectocele for moderate pain acetaminophen (TYLENOL) Take 1 tablet 45 tablet 0 10/09/2019 Active 650 MG CR (650 mg) by tabletIndications: mouth every 6 Vaginal vault prolapse, hours as needed Cystocele, midline, for mild pain or Rectocele fever ondansetron (ZOFRAN-ODT) Take 1 tablet (4 15 tablet 0 10/09/19 20 Active 4 MG ODT tabIndications: mg) by mouth Vaginal vault prolapse, every 8 hours as Cystocele, midline, needed for Rectocele nausea Additional Information Patient not taking. Reported on 06/14/2021 diclofenac (VOLTAREN) 75 MG EC Take 1 tablet (75 28 tablet 0 0 06/14/2021 Active tabletIndications: Left foot mg) by mouth 2 times pain, Pes cavus, Peroneal daily for 14 days tendonitis, left Active Problems No known active problems Social History Tobacco Use Types Packs/Day Years Used Date Former Smoker Cigarettes 1 5 Quit: 11/25/19 08 Smokeless Tobacco: Never Used Tobacco Cessation: Counseling Given: Yes Alcohol Use Standard Drinks/Week Comments No 0 (1 standard drink = 0.6 oz pure alcoho l) Sex Assigned at Date Recorded Female 07/17/2021 8:09 AM CDT Last Filed Vital Signs Vital Sign Reading Time Taken Comments Blood Pressure 124/84 07/19/2021 10:08 AM CDT Pulse 54 10/09/2019 2:15 PM CDT Temperature 36.2 ??C (97.1 ??F) 10/09/2019 4:45 PM CDT Respiratory Rate 14 10/09/2019 4:45 PM CDT Oxygen Saturation 97% 10/09/2019 4:45 PM CDT Inhaled Oxygen Concentration - - Weight 86.2 kg (190 lb) 07/19/2021 10:08 AM CDT Height 162.6 cm (5' 4) 07/19/2021 10:08 AM CDT Body Mass Index 32.61 07/19/2021 10:08 AM CDT Plan of Treatment Health Maintenance Due Date Last Done Comments ADVANCE CARE PLANNING 1955 ANNUAL REVIEW OF HM ORDERS 1955 CT COLONOGRAPHY 1955 DEXA 1955 FIT-DNA (Cologuard) 1955 FIT 1955 FLEX SIG 1955 MAMMO SCREENING 1955 HEPATITIS C SCREENING 1971 LIPID 1998 LUNG CANCER SCREENING 2003 COLONOSCOPY 09/20/2016 09/20/2006 COLORECTAL CANCER SCREENING 09/20/2016 FALL RISK ASSESSMENT 2018 MEDICARE ANNUAL WELLNESS 2018 VISIT PHQ-2 (once per calendar 03/26/2021 year) INFLUENZA VACCINE (#1) 2021 12/07/2020, 11/10/2019, 12/16/2018, Additional history exists DTAP/TDAP/TD IMMUNIZATION 12/28/2027 12/27/2017 (2 - Td or Tdap) ZOSTER IMMUNIZATION Completed 01/01/2019, 10/27/2018 Pneumococcal Vaccine: 65+ Completed 12/19/2019, 12/16/2018 Years COVID-19 Vaccine Completed 06/22/2021, 2021, 01/13/2021, Additional history exists HEPATITIS B IMMUNIZATION Aged Out No long er eligible based on patient 's age to complete this topic IPV IMMUNIZATION Aged Out No longer eligi ble based on patient 's age to complete this topic MENINGITIS IMMUNIZATION Aged Out No longe r eligible based on patient 's age to complete this topic Insurance Payer Benefit Plan / Subscriber ID Effective Phone Address T ype Group Dates [facility] [id number] 2021-Prese [phone] [address] [employer] [facility] nt [address] [place] [phone] Advance Directives For more information, please contact: [phone] Latest Code Status on File Code Status Date Activated Date Inactivated Comments Full Code 10/09/2019 2:12 PM Code status determined by: Discussion with patient/ legal de cision maker Care Teams Home Sales Service Professional Relationship Specialty Start Date End Date Js Sousa PCP - General Emergency Medicine 09/30/19 MD Ke [facility] [address] [place] [address] Berta Blackwell DPM, Assigned Musculoskeletal 06/19/21 Podiatry/Foot and Provider Ankle Surgery [address] [place] [address]
--- OUTSIDE RECORDS SUMMARY | 2021-12-16 11:13 | XMS_ITS | Encounter Summary ---
:1955 Author Organization [place] Address [address] [place] [address]. [place] [address] Care Team Providers Name Role Phone Js Sousa MD Primary Care Provider [phone] Berta BlackwellM, Podiatry/Foot and Ankle Unavailable Surgery Berta Blackwell DPM, Podiatry/Foot and Ankle Unavailable Surgery Encounter Details Date Type Department Care Team Description 10/06/2019 External Order [facility] Outside, Provider Results Transplant Clinic [address] [place] [id number] Social History Tobacco Use Types Packs/Day Years Used Date Former Smoker Cigarettes 1 5 Quit: 11/25/19 08 Smokeless Tobacco: Never Used Alcohol Use Standard Drinks/Week Comments No 0 (1 standard drink = 0.6 oz pure alcoho l) Sex Assigned at Date Recorded Female 07/17/2021 8:09 AM CDT COVID-19 Exposure Response Date Recorded In the last month, have you been in contact with No / Unsure 10/09/2019 11:02 AM CDT someone who was confirmed or suspected to have Coronavirus / COVID-19? documented as of this encounter Plan of Treatment Not on filedocumented as of this encounter Procedures Procedure Name Priority Date/Time Associated Diagnosis Comme nts COVID-19 VIRUS Routine 10/06/2019 9:05 AM Results for this (CORONAVIRUS) BY CDT procedure a re in PCR (EXTERNAL the results RESULT) section. documented in this encounter Results COVID-19 Virus (Coronavirus) by PCR (External Result) (10/06/2019 9:05 AM CDT) P athologist Signature COVID-19 Virus ABSENT ABSENT LABDE SCAN by PCR (External Result) Comment: Performed at [facility] [address] [facility] ??[id number] Specimen (Source) Anatomical Collection Method Collection Time Re ceived Time Location / / Volume Laterality 10/06/2019 9:05 AM CDT Narrative [facility] - 10/14/2019 1:10 PM CDT Verified by Nikole Shields on 10/14/2019. Patient Reported LABORATORY Performing Organization Address City/State/ZIP Code Phon e Number [facility]DE SC[facility] documented in this encounter Visit Diagnoses Not on filedocumented in this encounter Care Teams Security Delivery Specialist Relationship Specialty Start Date End Date Js Sousa PCP - General Emergency Medicine 09/30/19 MD Ke [facility] [address] [place] [address] Berta Blackwell DPM, Assigned Musculoskeletal 01/16/20 05/22/20 Podiatry/Foot and Provider Ankle Surgery [address] [place] [address] Berta Blackwell DPM, Assigned Musculoskeletal 06/19/21 Podiatry/Foot and Provider Ankle Surgery [address] [place] [address] documented as of this encounter
--- OUTSIDE RECORDS SUMMARY | 2021-12-16 11:13 | XMS_ITS | Encounter Summary ---
:1955 Author Organization [facility] Address [facility] [place] [address] Care Team Providers Name Role Phone Js Sousa MD Primary Care Provider [phone] Reason for Visit Auth/Cert Specialty Diagnoses / Procedures Referred By Contact Refer red To Contact Surgery Diagnoses Vaginal vault prolapse Cystocele, midline Rectocele Vaginal vault prolapse [N81.9] Cystocele, midline [N81.11] Rectocele [N81.6] Rh Periop Services Procedures C COMBINED ANT/POST COLPORRHAPHY HC CYSTOURETHROSCOPY HC CYSTOURETHROSCOPY W/ URETEROSCOPY &/OR PYELOSCOPY, DIAGNOSTIC sacrospinus suspension, anterior and posterior repairs, perineorrhaphy and cystoscopy CYSTOSCOPY [address] [place] [address] Phone: Fax: Referral ID Status Reason Start Date Expiration Date Visits Requ ested Visits Authorized [id number] 1 1 Encounter Details Date Type Department Care Team Description 10/09/2019 Hospital Encounter [facility] Alcira Tomlinson MD Vaginal vault prolapse (Primary Dx); [facility] Cystocele, midline; [address] [facility] Rectocele [address] [address] [address] [phone] [place] [address] Social History Tobacco Use Types Packs/Day Years [...] / COVID-19? documented as of this encounter Last Filed Vital Signs Vital Sign Reading Time Taken Comments Blood Pressure 162/87 10/09/2019 4:45 PM CDT Pulse 54 10/09/2019 2:15 PM CDT Temperature 36.2 ??C (97.1 ??F) 10/09/2019 4:45 PM CDT Respiratory Rate 14 10/09/2019 4:45 PM CDT Oxygen Saturation 97% 10/09/2019 4:45 PM CDT Inhaled Oxygen Concentration - - Weight 87.5 kg (193 lb) 10/09/2019 10:29 AM CDT Height 162.6 cm (5' 4) 10/09/2019 10:29 AM CDT Body Mass Index 33.13 10/09/2019 10:29 AM CDT documented in this encounter Discharge Instructions Discharge InstructionsHolli Erickson RN - 10/09/2019 3:41 PM CDT You received Toradol, an IV form of ibuprofen (Motrin) at 1:30 PM. Do not take any ibuprofen products until 7:30 PM. GENERAL ANESTHESIA OR SEDATION ADULT DISCHARGE INSTRUCTIONS SPECIAL PRECAUTIONS FOR 24 HOURS AFTER SURGERY IT IS NOT UNUSUAL TO FEEL LIGHT-HEADED OR FAINT, UP TO 24 HOURS AFTER SURGERY OR WHILE TAKING PAIN MEDICATION. IF YOU HAVE THESE SYMPTOMS; SIT FOR A FEW MINUTES BEFORE STANDING AND HAVE SOMEONE ASSIST YOU WHEN YOU GET UP TO WALK OR USE THE BATHROOM. YOU SHOULD REST AND RELAX FOR THE NEXT 24 HOURS AND YOU MUST MAKE ARRANGEMENTS TO HAVE SOMEONE STAY WITH YOU FOR AT LEAST 24 HOURS AFTER YOUR DISCHARGE. AVOID HAZARDOUS AND STRENUOUS ACTIVITIES. DO NOTMAKE IMPORTANT DECISIONS FOR [address] ANY VEHICLE OR OPERATE MECHANICAL EQUIPMENT FOR 24 HOURS FOLLOWING THE END OF YOUR SURGERY. EVEN THOUGH YOU MAY FEEL NORMAL, YOUR REACTIONS MAY BE AFFECTED BY THE MEDICATION YOU HAVE RECEIVED. DO NOT DRINK ALCOHOLIC BEVERAGES FOR 24 HOURS FOLLOWING YOUR SURGERY. DRINK CLEAR LIQUIDS (APPLE JUICE, NOMI FER, 7-UP, BROTH, ETC.). PROGRESS TO YOUR REGULAR DIET YOU FEEL ABLE. YOU MAY HAVE A DRY MOUTH, A SORE THROAT, MUSCLES ACHES OR TROUBLE SLEEPING. THESE SHOULD GO AWAY AFTER 24 HOURS. CALL YOUR DOCTOR FOR ANY OF THE FOLLOWING: SIGNS OF INFECTION (FEVER, GROWING TENDERNESS AT THE SURGERY SITE, A LARGE AMOUNT OF DRAINAGE OR BLEEDING, SEVERE PAIN, FOUL-SMELLING DRAINAGE, REDNESS OR SWELLING. IT HAS BEEN OVER 8 TO 10 HOURS SINCE SURGERY AND YOU ARE STILL NOT ABLE TO URINATE (PASS WATER). documented in this encounter Medications at Time of Discharge Medication Sig Dispensed Refills Start Date End Date acetaminophen (TYLENOL) 650 Take 1 tablet (650 45 tablet 0 10/09/2019 MG CR tabletIndications: mg) by mouth every Vaginal vault prolapse, 6 hours as needed Cystocele, midline, for mild pain or Rectocele fever aspirin 81 MG EC tablet Take 81 mg by 0 mouth daily Calcium Citrate-Vitamin D Take 1 tablet by 0 (CALCIUM CITRATE CHEWY BITE mouth daily PO) glucosamine-chondroitin Take 1 capsule by 0 500-400 MG CAPS per capsule mouth daily HYDROCHLOROTHIAZIDE PO Take 25 mg by 0 mouth daily ibuprofen (ADVIL/MOTRIN) Take 1 tablet (600 45 tablet 0 600 MG tabletIndications: mg) by mouth every Vaginal vault prolapse, 6 hours as needed Cystocele, midline, for moderate pain Rectocele multivitamin w/minerals Take 1 tablet by 0 (THERA-VIT-M) tablet mouth daily [place]-3 Fatty Acids (OMEGA Take 1,200 mg by 0 3 PO) mouth daily ondansetron (ZOFRAN-ODT) 4 Take 1 tablet (4 15 tablet 0 MG ODT tabIndications: mg) by mouth every Vaginal vault prolapse, 8 hours as needed Cystocele, midline, for nausea Rectocele order for DMEIndications: Please dispense up to 3 pair s of knee high compression stockings at 20-30 mmHg. 3 Device 0 08/29/2016 Left foot pain, Tailor's bunion of left foot, Home Medical Equipment: Bursitis of foot, left 1. [facility] [id number] [facility] [place] -[address] [place] VITAMIN D, CHOLECALCIFEROL, Take 1,000 Units 0 PO by mouth daily oxyCODONE (ROXICODONE) 5 MG Take 1 tablet (5 12 tablet 0 10/12/2019 tabletIndications: Vaginal mg) by mouth every vault prolapse, Cystocele, 3 hours as needed midline, Rectocele for severe pain documented as of this encounter H&P Notes Alcira Tomlinson MD - 10/09/2019 11:36 AM CDT History and physical reviewed, no changes to history since last exam Consent was confirmed and verified Dr. Alcira Tomlinson [facility] Female Pelvic Medicine and Reconstructive Surgery/Urogynecology Source Note - Sunni, Provider - 10/08/2019 12:18 PM CDT documented in this encounter Nursing Notes Bailey Hickman RN - 10/09/2019 4:50 PM CDT Discharge instructions were completed with spouse and patient. All questions were answered. documented in this encounter Miscellaneous Notes Op Note - Alcira Tomlinson MD - 10/09/2019 1:54 PM CDT Operative Note Name: Sandy Sousa Location: [facility] Procedure Date: 10/09/19 PCP: Js Sousa Procedure(s): Sacrospinus ligament suspension, Anterior and Posterior colporrhaphy, Perineorrhaphy and Cystoscopy Pre-Procedure Diagnosis: (N81.9) Vaginal vault prolapse (primary encounter diagnosis) (N81.11) Cystocele, midline (N81.6) Rectocele Post-Procedure Diagnosis: Same Surgeon(s): Alcira Tomlinson MD diploma dental assistant Elaina Matos [facility] Anesthesia Type: General Findings: Exam under anesthesia confirmed stage III vaginal vault prolapse and cystocele, rectocele. After sacrospinous suspension and posterior colporrhaphy well supported vagina and no residual rectocele. On cystoscopy after anterior colporrhaphy normal bladder, normal urethra, but is bilateral reflux of urine noted from the bilateral ureters which are in the normal anatomic position. The bladder was without injury, foreign body, mass, or any other abnormality. Complications: None Specimens: * No specimens in log * Lines, Drains, Airways: 16 [place] Kim Implants: * No implants in log * Estimated Blood Loss: 50cc Indications: Sandy is a 64-year-old female with bothersome stage II-III vaginal vault prolapse, cystocele and rectocele. She also has the feeling of incomplete emptying. We tried a pessary but she felt that it was uncomfortable and elected surgical management with the procedures listed above after discussion of risks, benefits, and alternatives. We also reviewed the risk of occult stress incontinence, she did nothave any stress incontinence prior to worsening of the prolapse nor did she has stress incontinence with the pessary when it was in temporarily. Given this the decision was made to do a csze-coz-woe approach rather than placing a sling concomitantly at the time of prolapse repair. Operative Report: The patient was seen in preoperative area and patient and procedure were verified. She was taken to the operating room and IV antibiotics were administered, SCDs were applied. She was placed under general anesthesia, time out was performed confirming patient and procedure. She was placed in dorsal lithotomy position with yellow fin stirrups with care to avoid hyperflexion of the hips and thighs and care to avoid any points of excess tension. She was then prepped and draped in the usual sterile fashion. A kim catheter was inserted. The procedure started with identification of the area of the perineal repair. Allis clamps were placed in a yady configuration on the lower posterior vagina and perineum with care to ensure avoidingover narrowing of the vaginal introitus. A yady incision was made after injection of 1% lidocainewith epinephrine. The epithelium was removed over this area. The incision was then extended in the midline up the entire posterior wall of the vagina to the vaginal apex. Metzenbaum scissors were used to dissect the fibromuscular professional golf tournament player of the vaginal epithelium bilaterally. Then on the patient's right side dissection was taken down further to the perirectal space and the sacral spinous ligament was identified after palpation of the ischial spine. The Che needle suturing device was used to deploy 2 sutures of 0-Monodek into the sacrospinous ligament approximately 2 cm medial to the spine in the midportion of the ligament. This was done without complication. We then continued the posterior colporrhaphy using interrupted sutures of 2-0 PDS by taking the lateral edges of the fibroma muscular layer and plication in the midline. This was done without complication. Approximately 9 sutures were used. The apex of the vaginal epithelium incision was then started to be closed with 2-0 Vicryl this was done to approximately half the length of the vagina. At this point the 2-0 Vicryl was placed on hold and the sacrospinous ligament sutures were tied down. Of note we placed the powdered Surgicel to ensure continued hemostasis though no active bleeding was noted from the sacrospinous dissection. Once the sacrospinous sutures were tied down with care to ensure that they were in direct approximation with the ligament, the incision was continued to be closed using the running suture of the 2-0 Vicryl. At this point anterior colporrhaphy was performed for the remaining cystocele.. The area of planned dissection was identified a midline incision approximately 3 cm was made after injection with 1% lidocaine with epinephrine. The fibromuscular layer was then dissected off of the overlying vaginal epithelium using Metzenbaum scissors, this was performed bilaterally. Using interrupted sutures of 2-0 PDS the lateral edges of the fibromuscular layer were plicated in the midline. The epithelium was minimally trimmed and closed with a running suture of 2 -0 vicryl. . Cystoscopy was performed with findings above as above indicating no injury from the procedure. The kim was replaced. Sponge, needle, instrument counts were correct at the end of the procedure the vagina was packed with lubricated vaginal packing and the patient was awakened from anesthesia andtaken to the PACU in an awake and stable condition. I was present and scrubbed for the procedure in entirety. Alcira Tomlinson documented in this encounter Plan of Treatment Not on filedocumented as of this encounter Procedures Procedure Name Priority Date/Time Associated Diagnosis Comme nts CYSTOSCOPY 10/09/2019 11:43 AM CDT Vaginal vault prolapse Cystocele, midli ne Rectocele Special Needs COVID-19 in [place] on , will fax results AG 10/07/19. I left message with HIM at [facility] to fax us results or call us if results are still pending.Cori Ang RN 10/07 at 1650.Ht 5'4 Wt 194 lb statedNeeds T & S preop COLPORRHAPHY, COMBINED 10/09/2019 11:43 AM Vagin al vault prolapse ANTEROPOSTERIOR CDT Cystocele, midli ne Rectocele Special Needs COVID-19 in [place] on , will fax results AG 10/07/19. I left message with HIM at [facility] to fax us results or call us if results are still pending.Cori Ang RN 10/07 at 1650.Ht 5'4 Wt 194 lb statedNeeds T & S preop ABO/RH TYPE AND SCREEN STAT 10/09/2019 11:29 AM CDT LAB RESULT - HIM SCAN 09/25/2019 12:00 AM CDT EKG CARDIAC - HIM SCAN 09/25/2019 12:00 AM CDT documented in this encounter Results ABO/Rh type and screen (10/09/2019 11:29 AM CDT) [facility] Method Time Signature ABO A 10/09/2019 [place] 12:01 PM CDT [facility] RH(D) Pos [facility] Antibody Neg 10/09/2019 [place] Screen 12:29 PM T [facility] Test Valid [facility] 10/09/2019 [place] Only At [facility] 11:48 AM T [facility] Specimen 10/12/2019 10/09/2019 [place] Expires 11:48 AM T [facility] Specimen Anatomical Collection Method Collection Time Receive d Time (Source) Location / / Volume Laterality Blood specimen 10/09/2019 11:29 0 (specimen) AM CDT 11:30 AM CDT Alcira Tomlinson MD LAB - BLOOD BANK TEST ORDER Performing Organization Address City/State/ZIP Code Phon e Number M [facility] [address] [place], [place] [address] [facility] [address] [place] [address] [facility] [phone] LAB RESULT - HIM SCAN (09/25/2019 12:00 AM CDT) Specimen (Source) Anatomical Location Collection Method / Collectio n Time Received Time / Laterality Volume 09/25/2019 Narrative This result has an attachment that is no t available. Provider Outside NON-BEAKER LAB TESTING EKG CARDIAC - HIM SCAN (09/25/2019 12:00 AM CDT) Specimen (Source) Anatomical Location Collection Method / Collectio n Time Received Time / Laterality Volume 09/25/2019 Narrative This result has an attachment that is no t available. Provider Outside ECG ORDERABLES documented in this encounter Visit Diagnoses Diagnosis Vaginal vault prolapse - Primary Unspecified prolapse of vaginal mota Cystocele, midline Rectocele documented in this encounter Administered Medications Inactive Administered Medications - up to 3 most recent administrations Medication Order MAR Action Action Date Dose Rate Site fentaNYL (PF) (SUBLIMAZE) injection 25-5 0 mcg 25-50 mcg, Intravenous, EVERY 15 MIN PRN, other, acute pain while in Phase II, Starting on Nivia 10/09/19 at 1359, Indicat ions: Sedated State, MAX cumulative dose = 250 mcg. Use fentaNYL (SUBLIMAZE) initia lly, as a short acting agent for acute pain control. If insufficient, or a longer acting agent is needed, begin morphine or HYDROmorphone (DILAUDID) if ordered. For ordered IV doses 1-100 mcg give IV Push undiluted over a minimum of 3-5 minutes., Phase ll HYDROmorphone (DILAUDID) injection 0.3-0 .5 mg 0.3-0.5 mg, Intravenous, EVERY 10 MIN PRN, other, acut e pain. May administer if Respiratory Rate is greater than 10, Starting on Nivia at 1358, Max cumulative dose = 2 mg If fentaNYL (SUBL IMAZE) is also ordered, use HYDROmorphone (DILAUDID) if pain control insufficient with fentaNYL (SUMBLIMAZE) or a longer acting agent is needed., PACU/Phase II lactated ringers infusion at 100 mL/hr, Intravenous, CONTINUOUS, Continue until IV catheter is weaned, PACU/Phase II, Starting on Nivia 10/09/19 at 1400, Until Nivia 10/09/19 at 1851 meperidine (DEMEROL) injection 12.5 mg 12.5 mg, Intravenous, EVERY 15 MIN PRN, post anesthesia shivering, Starting on Nivia 10/09/19 at 1358, For 2 doses, Give IV Pu sh undiluted. 10-40 mg over 2-3 minutes, up to 125 mg over 3-15 minutes, PACU/Phase II naloxone (NARCAN) injection 0.1-0.4 mg 0.1-0.4 mg, Intravenous, EVERY 2 MIN PRN , opioid reversal, Starting on Nivia 10/09/19 at 1358, For 24 hours, For apnea or imminent respirato ry arrest: give 0.4 mg IV undiluted Q 2 minutes PRN until desired degree of reversal is obtained, stop opioid and notify provider. Continue monitoring until dischar ge are criteria met for a minimum of 2 hours. For severe sedation, decrease in respiratory depth, quality or Respiratory Rate greater than 8: give 0. 1 mg IV Q 2 minutes x 3 doses, stop opioid and notify provider. Try to minimize reversal of analg esia especially in end-of-life patients. Continue monitorin g until discharge criteria are met for a minimum of 2 hours. For ordered IV doses 0.1-2mg give IVP. Give each 0.4mg over 15 seconds in emergency situations. For non -emergent situations further dilute in 9mL of NS to facilitate titration of response., PACU/Phase II ondansetron (ZOFRAN) injection 4 mg Given 10/09/2019 3:52 PM CDT 4 mg 4 mg, Intravenous, EVERY 30 MIN PRN, nausea, vomiting, Administer over 2-5 Minutes, Starting on Nivia 10/09/19 at 1359, For 2 doses, MAX total dose = 8 mg, including OR dosing. This is step 1 of nausea and vomiting management. If not resolved in 15 minutes, then go to step 2 [prochlorperazine (COMPAZINE) if ordered]. Irritant. For ordered IV doses 0.1-4 mg, give IV Push undiluted over 2-5 minutes., PACU/Phase II ondansetron (ZOFRAN-ODT) ODT tab 4 mg 4 mg, Oral, EVERY 30 MIN PRN, nausea, vo miting, Starting on Nivia 10/09/19 at 1359, For 2 doses, MAX total dose = 8 mg, incl uding OR dosing. This is step 1 of nausea and vomiting management. If not resolved in 15 minutes , then go to step 2 [prochlorperazine (COMPAZINE) if ordered ]. With dry hands, peel back foil backing and gently remove tablet. Do not push oral disintegrat ing tablet through foil backing. Administer immediately on tongu e and oral disintegrating tablet dissolves in seconds, then swallow with saliva. Liquid not requi red., PACU/Phase II ORAL Pain Medications - may administer a s ordered by surgeon for take home use CONTINUOUS PRN, Starting on Nivia 10/09/19 at 1358, Until Nivia 10/09/19 at 1851, May administer oral pain medications as ordered by surgeon for take home use. Discontinue IV pain medication prior to administration of oral pain medication., PACU/Phase II documented in this encounter Active and Recently Administered Medications Times are shown in CDT. Scheduled Medication Order 10/07/2019 10/08/2019 10/09/2019 ceFAZolin (ANCEF) intermittent infusion 2 g in 100 mL dextrose PRE-MIX (COMPLETED) 1202 (Given - Provid er: Purnima Ojeda, SENIOR NUCLEAR MEDICINE TECHNOLOGIST DEVELOPMENT ENGINEER) Routine, 2 g, Intravenous, PRE-OP/PRE-NY OCEDURE, Starting Nivia 10/09/19 at 1051, For 1 dose, Give first dose within 1 hour PRIOR to incision. If patient weight is greater than or equal to 120 kg increase dose to 3 g., Indications: Perioperative Pharmacoprophylaxis, Pr e-procedure Continuous Medication Order 10/07/2019 10/08/2019 10/09/2019 lactated ringers infusion 1400 ( Canceled Entry - Provider: Orders Generic Provider - Comment: Automatically canceled at discontinue of medication order) at 100 mL/hr, Intravenous, CONTINUOUS, C ontinue until IV catheter is weaned, PACU/Phase II, Starting Nivia 10/09/19 at 1400, Until Nivia 10/09/19 at 1851 lactated ringers infusion (CANCELED) 1141 (New Bag - Provider: Purnima Ojeda APRN CRNA)1301 (New Bag - Provider: Purnima Ojeda APRN CRNA)1400 (Anesthesia Volume Adjustment - Provider: Purnima Ojeda APRN CRNA) at 25 mL/hr, Intravenous, CONTINUOUS, IF patient NOT on dialysis., Pre- procedure, Starting Nivia 10/09/19 at 1100, Until Nivia 10/09/19 at 1407 PRN Medication Order 10/07/2019 10/08/2019 10/09/2019 fentaNYL (PF) (SUBLIMAZE) injection 25-50 mcg 25-50 mcg, Intravenous, EVERY 15 MIN PRN , other, acute pain while in Phase II, Starting Nivia 10/09/19 at 1359, Indications: Sedated State, MAX cumulative dose = 250 mcg. Use fentaNYL (SUBLIMAZE) initially , as a short acting agent for acute pain control. If insufficient, or a longer acting agent is needed, begin morphine or HYDROmorphone (DILAUDID) if ordered. For ordered IV doses 1-100 mcg give IV Push undiluted over a minimum of 3-5 minutes., Phase ll HYDROmorphone (DILAUDID) injection 0.3-0.5 mg 0.3-0.5 mg, Intravenous, EVERY 10 MIN [place] N, other, acute pain. May administer if Respiratory Rate is greater than 10, Starting Nivia 10/09/19 at 1358, Max cumulative dose = 2 mg If fentaNYL (SUBLIMAZE) is a lso ordered, use HYDROmorphone (DILAUDID ) if pain control insufficient with fentaNYL (SUMBLIMAZE) or a longer acting agent is needed., PACU/Phase II lidocaine 1 % 0.1-1 mL (CANCELED) 1207 (Given - Provider: Abel Roy MD) 0.1-1 mL, Other, EVERY 1 HOUR PRN, mild pain with VAD insertion., Starting Nivia 10/09/19 at 1053, Do NOT give if patient has a history of allergy to any local anesthetic or any ashlyn product. MAX dose 1 mL subcutaneous OR intradermal in divid ed doses as needed for VAD insertion., Pre-procedure lidocaine-EPINEPHrine 1 %-1:[id number] injection (CANCELED) 1358 (Given - Provider: Alcira Tomlinson MD) PRN, Starting Nivia 7 at 1358, Intra-procedure meperidine (DEMEROL) injection 12.5 mg 12.5 mg, Intravenous, EVERY 15 MIN PRN, post anesthesia shivering, Starting Nivia 7 at 1358, For 2 doses, Give IV Push undiluted. 10-40 mg over 2-3 minutes, up to 125 mg over 3-15 minutes, PACU/Phase II naloxone (NARCAN) injection 0.1-0.4 mg 0.1-0.4 mg, Intravenous, EVERY 2 MIN PRN , opioid reversal, Starting Nivia 7 at 1358, For 24 hours, For apnea or imminent respiratory arrest: give 0.4 mg IV undiluted Q 2 minutes PRN until desired de gree of reversal is obtained, stop opioi d and notify provider. Continue monitoring until discharge are criteria met for a minimum of 2 hours. For severe sedation, decrease in respiratory depth, quality or Respiratory Rate greater than 8: give 0.1 mg IV Q 2 minutes x 3 doses, stop opioid and notify provider. Try to minimize reversal of analgesia especially in end-of-life patients. Continue monitoring u ntil discharge criteria are met for a mi nimum of 2 hours. For ordered IV doses 0.1-2mg give IVP. Give each 0.4mg over 15 seconds in emergency situations. For non-emergent situations further dilute in 9m L of NS to facilitate titration of response., PACU/Phase II ondansetron (ZOFRAN) injection 4 mg(Linked Group 1) 6329 (Given - Provider: Holli Ercikson RN) 4 mg, Intravenous, EVERY 30 MIN PRN, belia sea, vomiting, Administer over 2-5 Minutes, Starting Nivia 7 at 1359, For 2 doses, MAX total dose = 8 mg, including OR dosing. This is step 1 of nausea and vo miting management. If not resolved in 15 minutes, then go to step 2 [prochlorperazine (COMPAZINE) if ordered]. Irritant. For ordered IV doses 0.1-4 mg, give IV Push undiluted over 2-5 minutes., PACU/Phase II ondansetron (ZOFRAN-ODT) ODT tab 4 mg(Linked Group 1) 1552 (See Alternative - Provider: Holli Erickson RN) 4 mg, Oral, EVERY 30 MIN PRN, nausea, vo miting, Starting Nivia 7 at 1359, For 2 doses, MAX total dose = 8 mg, including OR dosing. This is step 1 of nausea and vomiting management. If not resolved i n 15 minutes, then go to step 2 [prochlo rperazine (COMPAZINE) if ordered]. With dry hands, peel back foil backing and gently remove tablet. Do not push oral disintegrating tablet through foil backing. A dminister immediately on tongue and oral disintegrating tablet dissolves in seconds, then swallow with saliva. Liquid not required., PACU/Phase II ORAL Pain Medications - may administer as ordered by surgeon for take home use CONTINUOUS PRN, Starting Nivia 10/09/19 at 1358, Until Nivia 7 at 1851, May administer oral pain medications as ordered by surgeon for take home use. Discontinue IV pain medication prior to administration of oral pain medication., PACU/Phase II Linked Groups Order Group 1: ondansetron (ZOFRAN-ODT) ODT tab 4 mgJump to med 4 mg, Oral, EVERY 30 MIN PRN, nausea, vo miting, Starting Nivia 10/09/19 at 1359, For 2 doses
MAX total dose = 8 mg, including OR dosing. This is step 1 of nausea and vomiting management. If not resolved in 15 minutes, the n go to step 2 [prochlorperazine (COMPAZINE) if ordered]. With dry hands, peel back foil backing and gently remove tablet. Do not push oral disintegr ating tablet through foil backing. Admin ister immediately on tongue and oral disintegrating tablet dissolves in seconds, then swallow with saliva. Liquid not required.
PACU/Phase II Or ondansetron (ZOFRAN) injection 4 mgJump to med 4 mg, Intravenous, EVERY 30 MIN PRN, belia sea, vomiting, Administer over 2-5 Minutes, Starting Nivia 7 at 1359, For 2 doses
MAX total dose = 8 mg, including OR dosing. This is step 1 of nause a and vomiting management. If not resolved in 15 minutes, then go to step 2 [prochlorperazine (COMPAZINE) if ordered]. Irritant. For ordered IV doses 0.1-4 mg, give IV Push undiluted over 2-5 minutes.
PACU/Phase II documented in this encounter Care Teams Group Home Supervisor Relationship Specialty Start Date End Date Js Sousa MD PCP - General Emergency Medicine 09/30/19 [facility] [address] [place] [address] documented as of this encounter
--- OUTSIDE RECORDS SUMMARY | 2021-12-16 11:13 | XMS_ITS | Encounter Summary ---
:1955 Author Organization [place] Address [address] [place] [address]. [place] [address] Care Team Providers Name Role Phone Js Sousa MD Primary Care Provider [phone] Reason for Referral Diagnostic Imaging XR (Routine) - Pending Review Specialty Diagnoses / Procedures Referred By Contact Refer red To Contact Diagnoses Left foot pain Berta Blackwell DPM, Procedures XR Foot Left G/E 3 Views Podiatry/Foot and Ankle Surgery [address] [place] [address] Referral ID Status Reason Start Date Expiration Date Visits V isits Requested Authorized [id number] Pending 06/14/2021 06/14/2022 1 1 Review Reason for Visit Reason Comments Pain Encounter Details Date Type Department Care Team Description 06/14/2021 Office Visit [facility] Berta Blackwell, Left fo ot pain (Primary Dx); FSOC [place] DPM, Podiatry/Foot Pes ca vus; Podiatry and Ankle Surgery Peroneal tendonitis, left [address] [place] [address] [place] [address] [place], [place] [phone] (Wo rk) Social History Tobacco Use Types [...] been in contact with No / Unsure 06/14/2021 12:42 PM CDT someone who was confirmed or suspected to have Coronavirus / COVID-19? documented as of this encounter Last Filed Vital Signs Vital Sign Reading Time Taken Comments Blood Pressure 128/86 06/14/2021 1:05 PM CDT Pulse - - Temperature - - Respiratory Rate - - Oxygen Saturation - - Inhaled Oxygen Concentration - - Weight 86.2 kg (190 lb) 06/14/2021 1:05 PM CDT Height 162.6 cm (5' 4) 06/14/2021 1:05 PM CDT Body Mass Index 32.61 06/14/2021 1:05 PM CDT documented in this encounter Patient Instructions Patient InstructionsHiJessica choi MA - 06/14/2021 1:15 PM CDT Thank you for choosing [facility] Podiatry / Foot & Ankle Surgery! DR BLACKWELL[facility]S CLINIC: [facility] [address] [place] [address] [place] [address] TRIAGE LINE: [phone] - [employer] APPOINTMENTS: [phone] RADIOLOGY: [phone] SET UP SURGERY: [phone] BILLING QUESTIONS: [phone] FAX: [phone] Follow up: 1 month TENDONITIS Tendons are the strong fibrous portions of muscles that attach to bones and allow the muscle to movea joint when it contracts. Tendons are very strong because they have a lot of force exerted on them.Sometimes tendons can become painful because they have suffered an acute injury, in which too much force was exerted at one time, or an overuse injury, in which a normal force was exerted too frequently or over a prolonged period of time. As a result, there is damage to the tendon and its surrounding soft tissue structures and they become inflammed. Because tendons do not have a great blood supply, they do not heal rapidly and the inflammation can become chronic. Conservative treatment for tendinitis involves rest and anti-inflammatory measures. Ice is applied 15 minutes 2-3 times daily. Anti-inflammatory medications called NSAIDs (ibuprofen, example) can be taken provided they are used with caution, as they can lead to internal bleeding and increase the risk o fstroke and heart attack. Sometimes topical nitroglycerin is prescribed to help with pain. Often your doctor will use a special shoe or removable walking cast to immobilize the tendon, allowing it to heal without further damage from use. These devices are very useful in helping tendons heal, but they may slow you down or make you feel like your hip, knee, or back are out ofalignment. This is temporary and should go away once you are out ofthe immobilization. You should not use a walking cast when showering or driving. Another option is Platelet Rich Plasma injections. (Normally done with a Sports and Orthorapedic doctor. If conservative measures fail, your physician may need to surgically repair the tendon by removing any chronic inflammatory tissue and sewing it back together. Sometimes it is sewn to an adjacent tendon with similar function for support and sometimes it is lengthened. . Sometimes the bones around the tendon need to be realigned or reshaped to better support the tendon or prevent further damage. Your foot and ankle surgeon will discuss the specifics of your surgery with you, should you need it. ??? Towel stretch: Sit on a hard surface with your injured leg stretched out in front of you. Loop atowel around your toes and the ball of your foot and pull the towel toward your body keeping your leg straight. Hold this position for 15 to 30 seconds and then relax. Repeat 3 times. Then push the towel away with the ball of your foot. Repeat 3 times. When you don't feel much of a stretch using the towel, you can start the standing calf stretch and the following exercises. ??? Standing calf stretch: Stand facing a wall with your hands on the wall at about eye level. Keep your injured leg back with your heel on the floor. Keep the other leg forward with the knee bent. Turn your back foot slightly inward (as if you were pigeon-toed). Slowly lean into the wall until you feel a stretch in the back of your calf. Hold the stretch for 15 to 30 seconds. Return to the starting position. Repeat 3 times. Do this exercise several times each day. ??? Standing soleus stretch: Stand facing a wall with your hands on the wall at about chest height. Keep your injured leg back with your heel on the floor. Keep the other leg forward with the knee bent. Turn your back foot slightly inward (as if you were pigeon-toed). Bend your back knee slightly and gently lean into the wall until you feel a stretch in the lower calf of your injured leg. Hold the stretch for 15 to 30 seconds. Return to the starting position. Repeat 3 times. ??? Achilles stretch: Stand with the ball of one foot on a stair. Reach for the step below with yourheel until you feel a stretch in the arch of your foot. Hold this position for 15 to 30 seconds and then relax. Repeat 3 times. ??? Heel raise: Balance yourself while standing behind a chair or counter. Using the chair or counter as a support to help you, raise your body up onto your toes and hold for 5 seconds. Then slowly lower yourself down without holding onto the support. (It's OK to keep holding onto the support if you need to.) When this exercise becomes less painful, try lowering yourself down on the injured leg only.Repeat 15 times. Do 2 sets of 15. Rest 30 seconds between sets. ??? Step-up: Stand with the foot of your injured leg on a support 3 to 5 inches high (like a small step or block of wood). Keep your other foot flat on the floor. Shift your weight onto the injured legon the support. Straighten your injured leg as the other leg comes off the floor. Return to the starting position by bending your injured leg and slowly lowering your uninjured leg back to the floor. Do 2 sets of 15. ??? Resisted ankle eversion: Sit with both legs stretched out in front of you, with your feet about a shoulder's width apart. Tie a loop in one end of elastic tubing. Put the foot of your injured leg through the loop so that the tubing goes around the arch of that foot and wraps around the outside of the other foot. Hold onto the other end of the tubing with your hand to provide tension. Turn the foot of your injured leg up and out. Make sure you keep your other foot still so that it will allow the tubing to stretch as you move the foot of your injured leg. Return to the starting position. Do 2 sets of 15. ??? Balance and reach exercises: Stand next to a chair with your injured leg farther from the chair.The chair will provide support if you need it. Stand on the foot of your injured leg and bend your knee slightly. Try to raise the arch of this foot while keeping your big toe on the floor. Keep your foot in this position. With the hand that is farther away from the chair, reach forward in front of you by bending at the waist. Avoid bending your knee any more as you do this. Repeat this 10 times. To make the exercise more challenging, reach farther in front of you. Do 2 sets of 10. communications billing analyst the sameposition as above. While keeping your arch height, reach the hand that is farther away from the chair across your body toward the chair. The farther you reach, the more challenging the exercise. Do 2 sets of 10. ?? Resisted ankle eversion: Sit with both legs stretched out in front of you, with your feet about ashoulder's width apart. Tie a loop in one end of elastic tubing. Put the foot of your injured leg through the loop so that the tubing goes around the arch of that foot and wraps around the outside of the other foot. Hold onto the other end of the tubing with your hand to provide tension. Turn the footof your injured leg up and out. Make sure you keep your other foot still so that it will allow the tubing to stretch as you move the foot of your injured leg. Return to the starting position. Do 2 setsof 15. If you have access to a wobble board, do the following exercises: Wobble board exercises: ??? Stand on a wobble board with your feet shoulder width apart. Rock the board forwards and backwards 30 times, then side to side 30 times. Hold on to a chair if you need support. ??? Rotate the wobble board around so that the edge of the board is in contact with the floor at alltimes. Do this 30 times in a clockwise and then a counterclockwise direction. ??? Balance on the wobble board for as long as you can without letting the edges touch the floor. Try to do this for 2 minutes without touching the floor. ??? Rotate the wobble board in clockwise and counterclockwise circles, but do not let the edge of the board touch the floor. ??? When you have mastered exercises A through D, try repeating them while standing on just your injured leg. ??? After you are able to do these exercises on one leg, try to do them with your eyes closed. Make sure you have something nearby to support you in case you lose your balance. documented in this encounter Progress Notes Berta Blackwell DPM, Podiatry/Foot and Ankle Surgery - 06/14/2021 1:15 PM CDT PATIENT HISTORY: Sandy Sousa is a 66 year old female who presents to clinic for pain to the left foot. Has been going on for 3 weeks. Notes burning, aching, throbbing. States it is 10 out of 10 atits worst normally 5 out of 10. Pain is most of the day. Worse with bumping it. Denies specific injury. Wondering what is causing the pain and what can be done to get rid of it. She notes that she did start exercising more in the last month and that is when it started. Review of Systems: Patient denies fever, chills, rash, wound, stiffness, numbness, weakness, heart burn, blood in stool, chest pain with activity, calf pain when walking, shortness of breath with activity, chronic cough, easy bleeding/bruising, swelling of ankles, excessive thirst, fatigue, depression, anxiety. Patient admits to limping. PAST MEDICAL HISTORY: Past Medical History: Diagnosis Date ??? Complication of anesthesia ??? History of blood transfusion 1975 ??? Hypertension ??? Sleep apnea dental device PAST SURGICAL HISTORY: Past Surgical History: Procedure Laterality Date ??? COLPORRHAPHY ANTERIOR, POSTERIOR, COMBINED N/A 10/09/2019 Procedure: Sacrospinus ligament suspension, Anterior and Posterior colporrhaphy, Perineorrhaphy andCystoscopy; Surgeon: Alcira Tomlinson MD; Location: [facility] OR ??? CYSTOSCOPY N/A 10/09/2019 Procedure: Cystoscopy; Surgeon: Alcira Tomlinson MD; Location: [facility] OR ??? EXCISE EXOSTOSIS TOE(S) Left 09/18/2016 Procedure: EXCISE EXOSTOSIS TOE(S); Left foot tailor's bunionectomy or right fifth metatarsal partial exostosectomy; Surgeon: Berta Blackwell DPM, Podiatry/Foot and Ankle Surgery; Location: [facility] OR ??? HYSTERECTOMY TOTAL ABDOMINAL, BILATERAL SALPINGO-OOPHORECTOMY, COMBINED ??? TONSILLECTOMY, ADENOIDECTOMY, COMBINED MEDICATIONS: Current Outpatient Medications: ??? acetaminophen (TYLENOL) 650 MG CR tablet, Take 1 tablet (650 mg) by mouth every 6 hours as needed for mild pain or fever, Disp: 45 tablet, Rfl: 0 ??? aspirin 81 MG EC tablet, Take 81 mg by mouth daily, Disp: , Rfl: ??? Calcium Citrate-Vitamin D (CALCIUM CITRATE CHEWY BITE PO), Take 1 tablet by mouth daily, Disp: ,Rfl: ??? glucosamine-chondroitin 500-400 MG CAPS per capsule, Take 1 capsule by mouth daily, Disp: , Rfl: ??? HYDROCHLOROTHIAZIDE PO, Take 25 mg by mouth daily, Disp: , Rfl: ??? ibuprofen (ADVIL/MOTRIN) 600 MG tablet, Take 1 tablet (600 mg) by mouth every 6 hours as needed for moderate pain, Disp: 45 tablet, Rfl: 0 ??? multivitamin, therapeutic with minerals (MULTI-VITAMIN) TABS tablet, Take 1 tablet by mouth daily, Disp: , Rfl: ??? Stonewall-3 Fatty Acids (OMEGA 3 PO), Take 1,200 mg by mouth daily, Disp: , Rfl: ??? ondansetron (ZOFRAN-ODT) 4 MG ODT tab, Take 1 tablet (4 mg) by mouth every 8 hours as needed fornausea, Disp: 15 tablet, Rfl: 0 ??? order for DME, Please dispense up to 3 pairs of knee high compression stockings at 20-30 mmHg. Home Medical Equipment: 1. [employer] [facility] [address] [facility], [phone] 2. [facility] -[address] [place] , Disp: 3 Device, Rfl: 0 ??? VITAMIN D, CHOLECALCIFEROL, PO, Take 1,000 Units by mouth daily , Disp: , Rfl: ALLERGIES: No Known Allergies SOCIAL HISTORY: Social History Socioeconomic History ??? Marital status: Spouse name: Not on file ??? Number of children: Not on file ??? Years of education: Not on file ??? Highest education level: Not on file Occupational History ??? Not on file Tobacco Use ??? Smoking status: Former Smoker Packs/day: 1.00 Years: 5.00 Pack years: 5.00 Types: Cigarettes Quit date: 11/25/2007 Years since quittin.5 ??? Smokeless tobacco: Never Used Substance and Sexual Activity ??? Alcohol use: No ??? Drug use: No ??? Sexual activity: Not on file Other Topics Concern ??? Parent/sibling w/ CABG, [place] or angioplasty before 65F 55M? Not Asked Social History Narrative ??? Not on file Social Determinants of Health Financial Resource Strain: Not on file Food Insecurity: Not on file Transportation Needs: Not on file Physical Activity: Not on file Stress: Not on file Social Connections: Not on file Intimate Partner Violence: Not on file Housing Stability: Not on file FAMILY HISTORY: No family history on file. EXAM:Vitals: BP 128/86 Ht 1.626 m (5' 4) Wt 86.2 kg (190 lb) BMI 32.61 kg/m?? General appearance: Patient is alert and fully cooperative with history & exam. No sign of distress is noted during the visit. Psychiatric: Affect is pleasant & appropriate. Patient appears motivated to improve health. Respiratory: Breathing is regular & unlabored while sitting. HEENT: Hearing is intact to spoken word. Speech is clear. No gross evidence of visual impairment that would impact ambulation. Dermatologic: Skin is intact to both lower extremities without significant lesions, rash or abrasion. No paronychia or evidence of soft tissue infection is noted. Vascular: DP & PT pulses are intact & regular bilaterally. No significant edema or varicosities noted. CFT and skin temperature is normal to both lower extremities. Neurologic: Lower extremity sensation is intact to light touch. No evidence of weakness or contracture in the lower extremities. No evidence of neuropathy. Musculoskeletal: Patient is ambulatory without assistive device or brace. Increased arch height. Pain on palpation of the left fifth metatarsal base and with eversion of the left foot. Radiographs: Left foot x-ray - I personally reviewed the xrays -increased calcaneal inclination angle. Degenerative changes noted to the first metatarsal phalangeal joint. No fractures are noted. ASSESSMENT: Left foot pain Pes cavus Peroneal tendonitis, left Medical Decision Making/Plan: Reviewed patient's [facility] in [facility]. Reviewed and discussed x-rays with patient. Reviewed and discussed causes of tendonitis. We discussed treatments such as immobiliation, icing, stretching, heel lifts, orthotics, physical therapy, MRI. At this time we will try an ankle brace, topical pain cream and oral NSAIDs. Commend not going barefoot or in socks and having a supportive shoe or sandal on at all times. Was given information on inserts. We will also have stretches that she can do. We will have her follow-up in 1 month. If not improved will order an MRI to assess for tendon tear. If improved will transition to shoes and inserts. All questions were answered to patient satisfaction she will call for the questions or concerns. Patient risk factor: Patient is at low risk for infection. Berta Blackwell DPM, Podiatry/Foot and Ankle Surgery documented in this encounter Plan of Treatment Not on filedocumented as of this encounter Results XR Foot Left G/E 3 Views (06/14/2021 1:27 PM CDT) Anatomical Region Laterality Modality Foot, Ankle Left Computed Radiography Specimen (Source) Anatomical Location Collection Method / Collectio n Time Received Time / Laterality Volume Impressions 06/14/2021 1:30 PM CDT IMPRESSION: Postoperative changes prior bunionectomy and fifth metatarsal head. No acute fracture. Mild , scattered midfoot degenerative change. AJ MCGHEE MD SYSTEM ID: ??[id number] Narrative 06/14/2021 1:30 PM CDT XR FOOT LEFT G/E 3 VIEWS 06/14/2021 1:27 PM HISTORY: weight bearing; Left foot pain COMPARISON: 09/18/2016. Procedure Note Aj Mcghee MD - 06/14/2021 XR FOOT LEFT G/E 3 VIEWS 06/14/2021 1:27 PM HISTORY: weight bearing; Left foot pain COMPARISON: 09/18/2016. IMPRESSION: Postoperative changes prior bunionectomy and fifth metatarsal head. No acute fracture. Mild , scattered midfoot degenerative change. AJ MCGHEE MD SYSTEM ID: [id number] Berta Blackwell DPM, Podiatry/Foot and Ankle Surgery IMG DIAGNOSTIC IMAGING ORDERABLES documented in this encounter Visit Diagnoses Diagnosis Left foot pain - Primary Pain in limb Pes cavus Talipes cavus Peroneal tendonitis, left Left foot pain Pain in limb documented in this encounter Care Teams Appraiser Real Estate Relationship Specialty Start Date End Date Js Sousa MD PCP - General Emergency Medicine 09/30/19 [facility] [address] [place] [address] documented as of this encounter
--- OUTSIDE RECORDS SUMMARY | 2021-12-16 11:13 | XMS_ITS | Encounter Summary ---
:1955 Author Organization [facility] Address [address] [place] [address]. [place] [address] Care Team Providers Name Role Phone Unavailable Primary Care Provider Unavailable Reason for Referral (Routine) - Closed Specialty Diagnoses / Procedures Referred By Contact Refer red To Contact Diagnoses Left foot pain Plantar fasciitis, left Pes planus of both feet Berta Blackwell DPM, Procedures TRIAMCINOLONE ACET INJ NOS Podiatry/Foot and Ankle Surgery [address] [place] [address] Referral ID Status Reason Start Date Expiration Date Visits Requ ested Visits Authorized [id number] Closed 11/20/2018 11/20/2019 1 1 Reason for Visit Reason Comments Foot Problems Encounter Details Date Type Department Care Team Description [facility], Podiatry/Foot Plantar fasciitis, left; [id number] E and Ankle Surgery [place] [address] [address] [phone] [address] [place] [address] (Wo rk) Social History Tobacco Use Types Packs/Day Years Used Date Former Smoker Cigarettes 1 5 Quit: 11/25/19 08 Smokeless Tobacco: Never Used Tobacco Cessation: Counseling Given: No Alcohol Use Standard Drinks/Week Comments No 0 (1 standard drink = 0.6 oz pure alcoho l) Sex Assigned at Date Recorded Female 07/17/2021 8:09 AM CDT documented as of this encounter Last Filed Vital Signs Vital Sign Reading Time Taken Comments Blood Pressure 136/68 11/20/2018 2:37 PM CDT Pulse - - Temperature - - Respiratory Rate - - Oxygen Saturation - - Inhaled Oxygen Concentration - - Weight 88.5 kg (195 lb) 11/20/2018 2:37 PM CDT Height 162.6 cm (5' 4) 11/20/2018 2:37 PM CDT Body Mass Index 33.47 11/20/2018 2:37 PM CDT documented in this encounter Patient Instructions Patient InstructionsGilbertKalen ignacio Luisa - 11/20/2018 2:15 PM CDT Images from the original note were not included. Thank you for choosing [facility]! DR[facility] SCHEDULE SUNDAY AM - [place] SUNDAY - [place] [address] [facility] [address] [place] [address] [place] [address] / FX [id number] / FX [phone] SUNDAY - [place] SUNDAY AM - [facility] [address] [address] [facility] [address] [place] [address] [place] [address] / FX [id number] SUNDAY PM - [place] SCHEDULE SURGERY: [phone] [facility] [address] BILLING QUESTIONS: [phone] [place] [address] AFTER HOURS: / FX [phone] APPOINTMENTS: [phone] [employer] ([facility]) [phone] PLANTAR FASCIITIS Plantar fasciitis is often referred to as heel spurs or heel pain. Plantar fasciitis is a very common problem that affects people of all foot shapes, age, weight and activity level. Pain may be in the arch or on the weight-bearing surface of the heel. The pain may come on without injury or identifiable cause. Pain is generally present when first getting out of bed in the morning or up from a seated break. CAUSES The plantar fascia is a dense fibrous band of tissue that stretches across the bottom surface of thefoot. The fascia helps support the foot muscles and arch. Plantar fasciitis is thought to be caused by mechanical strain or overload. Frequent walking without shoes or wearing unsupportive shoes is thought to cause structural overload and ultimately inflammation of the plantar fascia. Some people haveheel spurs that can be seen on x-ray. The heel spur is actually a minor component of plantar fascitis and is largely ignored. SELF TREATMENT The easiest solution is to stop walking around your home without shoes. Plantar fasciitis is largelya shoe problem. Shoes are either not being worn often enough or your current shoes are inadequate for your weight, foot structure or activity level. The majority of shoes on the market today are not sufficient to resist development of plantar fasciitis or to promote healing. Assume that your current shoes are inadequate and will need to be replaced. Even high quality shoes wear out with 6 months to one year of frequent use. Weight loss is another option. Losing ten pounds in the next two months may be enough to resolve the problem. Ice applied to the area of pain two to three times per day for ten minutes each session can be very helpful. Warm foot soaks in epsom salts can also relieve pain. This should continue until the problem resolves. Achilles tendon stretching is essential. Stretch multipletimes daily to promote healing and to prevent recurrence in the future. Over all stretching of the body is helpful as well such as the calves, thighs and lower back. Normally when one area of the body is tight, other areas are too. Gentle Yoga can be good for this. Over the counter topical anti inflammatories can be helpful such as biofreeze, bengay, salon pas, ect... Oral ibuprofen or aleve is recommended as well to try to calm down inflammation. Night splints can be helpful to gradually stretch the foot at night as a lot of pain is when you getup in the morning. Taking a towel or thera band and stretching the foot back multiple times before you get ou of bed can be beneficial as well. MEDICAL TREATMENT Medical treatments often include custom arch supports, cortisone injections, physical therapy, splints to be worn in bed, prescription medications and surgery. The home treatments listed above will be necessary regardless of these advanced medical treatments. Surgery is rarely needed but is very helpful in selected cases. PROGNOSIS Plantar fasciitis can last from one day to a lifetime. Some people get intermittent fascitis that isvery short-lived. Others suffer daily for years. Excessive body weight, frequent bare foot walking, long hours on the feet, inadequate shoes, predisposing foot structures and excessive activity such as running are all potential issues that lead to chronic and/or recurring plantar fascitis. Having plantar fasciitis means that you are forever prone to this problem and will require modification of some of the above factors. Most people seek treatment within one to four months. Healing usually requires a similar one to four month time frame. Healing time is relative to the amount of effort spent treating the problem. Plantar fasciitis is highly recurrent. Risk factors often continue, including return to bare foot walking, inadequate shoes, excessive body weight, excessive activities, etc. Your life style and foot structure may predispose you to recurrent plantar fasciitis. A daily prevention regimen can be very helpful. Ongoing use of shoe inserts, careful attention to appropriate shoes, daily Achilles stretching, etc. may prevent recurrence. Prompt attention at the earliest warning signs of heel pain can resolve the problem in as short as a few days. EXERCISES Stair Exercise: Step on the stairs with the ball of your foot and hold your position for at least 15seconds, then slowly step down with the heels of your foot. You can do this daily and as often as you want. Picking the Towel: Sit comfortably and then pick the towel up with your toes. You can use any objectother than a towel as long as the material can be soft and you can pick it up with your toes. Rolling the Bottle: Use a small ball or frozen water bottle and then roll it around with your foot. Flex the Toes: Sit comfortably and then flex your toes by pointing it towards the floor or towards your body. This will relax and flex your foot and exercise your plantar fascia, the calf, and the Achilles tendon. The inability of the foot to stretch often causes the bunching up of the plantar fascia area leading to the pain. Calf/Achilles Stretching: Lay on you back and raise one foot, then point your toes towards the floor. See photo below: Hold each stretch for 10 seconds. Stretch 10 times per set, three sets per day. Morning, afternoon and evening. If your heel pain is very severe in the morning, consider doing the first set of stretches before you get out of bed. OVER THE COUNTER INSERT RECOMMENDATIONS SuperFeet Sofsole Fit Spenco Power Step Walk-Fit Arch Cradles Most of these can be found at your local [employer], sporting [employer] stores, or online. A good high quality over the counter insert should cost around $40-$50 [place] [employer] SHOES LOCATIONS [place] [address] [place] [address] [phone] [place] [address] [facility] [phone] [place] [address] [facility] [address] [phone] [place] [address] [phone] [phone] [facility] [address] [phone] [place] [address] [place] [address] BODY WEIGHT AND YOUR FEET The following information is included in the after visit summary for all patients. Body weight can be a sensitive issue to discuss in clinic, but we think the following information is very important. Although we focus on the feet and ankles, we do support the overall health of our patients. Many things can cause foot and ankle problems. Foot structure, activity level, foot mechanics and injuries are common causes of pain. One very important issue that often goes unmentioned, is body weight. Extra weight can cause increased stress on muscles, ligaments, bones and tendons. Sometimes just afew extra pounds is all it takes to put one over her/his threshold. Without reducing that stress, itcan be difficult to alleviate pain. As Foot & Ankle specialists, our job is addressing the lowerextremity problem and possible causes. Regarding extra body weight, we encourage patients to discussdiet and weight management plans with their primary care doctors. It is this team approach that gives you the best opportunity for pain relief and getting you back on your feet. [facility] has a Comprehensive Weight Management Program. This program includes counseling, education,non-surgical and surgical approaches to weight loss. If you are interested in learning more either talk to you primary care provider or call [phone]. documented in this encounter Progress Notes Berta Blackwell DPM, Podiatry/Foot and Ankle Surgery - 11/20/2018 2:15 PM CDT PATIENT HISTORY: Sandy Sousa is a 63 year old female who presents to clinic for left heel and arch pain. Notes that it has been going on for about a month. Denies specific injury. Pain is constant, worse in morning. Can be 10/10 at its worst. Has been exercising more. Wondering what is causing pain and what can be done for it. Review of Systems: Patient denies fever, chills, rash, wound, stiffness, numbness, weakness, heart burn, blood in stool, chest pain with activity, calf pain when walking, shortness of breath with activity, chronic cough, easy bleeding/bruising, swelling of ankles, excessive thirst, fatigue, depression, anxiety. Patient admits to limping at times. PAST MEDICAL HISTORY: Past Medical History: Diagnosis Date ??? Sleep apnea CPAP will bring on the day of surgery. PAST SURGICAL HISTORY: Past Surgical History: Procedure Laterality Date ??? EXCISE EXOSTOSIS TOE(S) Left 09/18/2016 Procedure: EXCISE EXOSTOSIS TOE(S); Left foot tailor's bunionectomy or right fifth metatarsal partial exostosectomy; Surgeon: Berta Blackwell DPM, Podiatry/Foot and Ankle Surgery; Location: [facility] OR ??? HYSTERECTOMY TOTAL ABDOMINAL, BILATERAL SALPINGO-OOPHORECTOMY, COMBINED ??? TONSILLECTOMY, ADENOIDECTOMY, COMBINED MEDICATIONS: Current Outpatient Medications: ??? Calcium Citrate-Vitamin D (CALCIUM CITRATE CHEWY BITE PO), Take 1 tablet by mouth daily, Disp: ,Rfl: ??? HYDROcodone-acetaminophen (NORCO) 5-325 MG per tablet, Take 1-2 tablets by mouth every 4 hours as needed for other (Moderate to Severe Pain), Disp: 30 tablet, Rfl: 0 ??? multivitamin, therapeutic with minerals (MULTI-VITAMIN) TABS tablet, Take 1 tablet by mouth daily, Disp: , Rfl: ??? [place]-3 Fatty Acids (OMEGA 3 PO), Take 1,200 mg by mouth daily, Disp: , Rfl: ??? ondansetron (ZOFRAN-ODT) 4 MG ODT tab, Take 2 tablets (8 mg) by mouth every 8 hours as needed for nausea Dissolve ON the tongue., Disp: 10 tablet, Rfl: 0 ??? order for DME, Please dispense up to 3 pairs of knee high compression stockings at 20-30 mmHg. Home Medical Equipment: 1. [facility] ([employer]) - [address] [facility] [facility], [phone] 2. [facility] -[address] [place] , Disp: 3 Device, Rfl: 0 ??? senna-docusate (SENOKOT-S;PERICOLACE) 8.6-50 MG per tablet, Take 1-2 tablets by mouth 2 times daily Take while on oral narcotics to prevent or treat constipation., Disp: 30 tablet, Rfl: 0 ??? vitamin B complex with vitamin C (VITAMIN B COMPLEX) TABS tablet, Take 1 tablet by mouth daily, Disp: , Rfl: ??? VITAMIN D, CHOLECALCIFEROL, PO, Take by mouth daily, Disp: , Rfl: ALLERGIES: No Known Allergies SOCIAL HISTORY: Social History Socioeconomic History ??? Marital status: Spouse name: Not on file ??? Number of children: Not on file ??? Years of education: Not on file ??? Highest education level: Not on file Occupational History ??? Not on file Social Needs ??? Financial resource strain: Not on file ??? Food insecurity: Worry: Not on file Inability: Not on file ??? Transportation needs: Medical: Not on file Non-medical: Not on file Tobacco Use ??? Smoking status: Former Smoker Packs/day: 1.00 Years: 5.00 Pack years: 5.00 Types: Cigarettes Last attempt to quit: 11/25/2007 Years since quittin.9 ??? Smokeless tobacco: Never Used Substance and Sexual Activity ??? Alcohol use: No ??? Drug use: No ??? Sexual activity: Not on file Lifestyle ??? Physical activity: Days per week: Not on file Minutes per session: Not on file ??? Stress: Not on file Relationships ??? Social connections: Talks on phone: Not on file Gets together: Not on file Attends catholic service: Not on file Active member of club or organization: Not on file Attends meetings of clubs or organizations: Not on file Relationship status: Not on file ??? Intimate partner violence: Fear of current or ex partner: Not on file Emotionally abused: Not on file Physically abused: Not on file Forced sexual activity: Not on file Other Topics Concern ??? Parent/sibling w/ CABG, ID or angioplasty before 65F 55M? Not Asked Social History Narrative ??? Not on file FAMILY HISTORY: No family history on file. EXAM:Vitals: BP 136/68 Ht 1.626 m (5' 4) Wt 88.5 kg (195 lb) BMI 33.47 kg/m?? BMI= Body mass index is 33.47 kg/m??. General appearance: Patient is alert and fully [...] is ambulatory without assistive device or brace. Decrease arch height. Painon palpation of plantar left heel. ASSESSMENT: Left foot pain Plantar fasciitis, left Pes planus of both feet PLAN: [facility]. The potential causes and nature of plantar fasciitis were discussed with the patient. We reviewed the natural history/prognosis of the condition and risks if left untreated. These include chronic pain, other sites of pain due to gait changes, and potential plantar fascial rupture. We discussed possible causes of the condition as it relates to the patients specific situation. Conservative treatment options were reviewed: appropriate shoes, avoidance of barefoot walking, inserts/orthoses, stretching, ice, massage, immobilization and NSAIDs. We also reviewed the options of injection therapy and surgery. However, it was made clear that surgery is only considered when conservative therapy fails. The risks and benefits of injection therapy, and surgery were discussed. After thorough discussion and answering all questions, the patient elected to try injection, inserts, stretching, topical and oral nsaids. Recommend do not go barefoot. If pain continues, recommend PT,boot or MRI. . Procedure: After verbal consent, the patients max point of tenderness was marked out on the left plantar heel. This area was prepped and draped using sterile technique. An injection of 1cc of 1% lidocaine plain and 1 1/2 cc of Kenalog-40 was injected into the max point of tenderness. This was distributed in a fanning motion. Patient tolerated the procedure and anesthesia well. Berta Blackwell DPM, Podiatry/Foot and Ankle Surgery Weight management plan: Patient was referred to their PCP to discuss a diet and exercise plan. Recommended to Sandy Sousa to follow up with Primary Care provider regarding elevated blood pressure. documented in this encounter Plan of Treatment Not on filedocumented as of this encounter Procedures Procedure Name Priority Date/Time Associated Diagnosis [facility] INJECTION SINGLE Routine 11/20/2018 3:05 PM CDT Left foot pain TENDON SHEATH/LIGAMENT Plantar f asciitis, left Pes planus of both feet documented in this encounter Visit Diagnoses Diagnosis Left foot pain - Primary Pain in limb Plantar fasciitis, left Plantar fascial fibromatosis Pes planus of both feet documented in this encounter
--- OUTSIDE RECORDS SUMMARY | 2021-12-16 11:13 | XMS_ITS | Encounter Summary ---
:1955 Author Organization [facility] Address [address] [place] [address]. [place] [address] Care Team Providers Name Role Phone Js Sousa MD Primary Care Provider [phone] Encounter Details Date Type Department Care Team Description 06/14/2021 Travel Social History Tobacco Use Types Packs/Day Years [...] on filedocumented in this encounter Care Teams Perianesthesia Nurse Relationship Specialty Start Date End Date Js Sousa MD PCP - General Emergency Medicine 09/30/19 [facility] [address] [place] [address] documented as of this encounter
--- OUTSIDE RECORDS SUMMARY | 2021-12-16 11:13 | XMS_ITS | Encounter Summary ---
:1955 Author Organization [facility] Address [address] [place] [address]. [place] [address] Care Team Providers Name Role Phone Js Sousa MD Primary Care Provider [phone] Berta Blackwell DPM, Podiatry/Foot and Ankle Unavailable Surgery Encounter Details Date Type Department Care Team Description 07/17/2021 Travel Social History Tobacco Use Types Packs/Day Years Used Date Former Smoker Cigarettes 1 5 Quit: 11/25/19 08 Smokeless Tobacco: Never Used Alcohol Use Standard Drinks/Week Comments No 0 (1 standard drink = 0.6 oz pure alcoho l) Sex Assigned at Date Recorded Female 07/17/2021 8:09 AM CDT COVID-19 Exposure Response Date Recorded In the last 10 days, have you been in contact with No / Unsu re 07/17/2021 8:15 AM CDT someone who was confirmed or suspected to have Coronavirus/COVID-19? documented as of this encounter Plan of Treatment Not on filedocumented as of this encounter Visit Diagnoses Not on filedocumented in this encounter Care Teams Knife Finisher Relationship Specialty Start Date End Date Js Sousa PCP - General Emergency Medicine 09/30/19 [facility] [address] [place] [address] Berta Blackwell DPM, Assigned Musculoskeletal 06/19/21 Podiatry/Foot and Provider Ankle Surgery [address] [place] [address] documented as of this encounter
--- OUTSIDE RECORDS SUMMARY | 2021-12-16 11:13 | XMS_ITS | Encounter Summary ---
:1955 Author Organization [facility] Address [address] [place] [address] Care Team Providers Name Role Phone Unavailable Primary Care Provider Unavailable Encounter Details Date Type Department Care Team Description 11/20/2018 Travel Social History Tobacco Use Types Packs/Day [...]
--- OUTSIDE RECORDS SUMMARY | 2021-12-16 11:13 | XMS_ITS | Encounter Summary ---
:1955 Author Organization [facility] Address [address] [place] [address]. [place] [address] Care Team Providers Name Role Phone Js Sousa MD Primary Care Provider [phone] Encounter Details Date Type Department Care Team Description 10/07/2019 Travel Social History Tobacco Use Types Packs/Day [...] been in contact with No / Unsure 10/07/2019 2:06 PM CDT someone who was confirmed or suspected to have Coronavirus / COVID-19? documented as of this encounter Plan of Treatment Not on filedocumented as of this encounter Visit Diagnoses Not on filedocumented in this encounter Care Teams Laundry Supervisor Relationship Specialty Start Date End Date Js Sousa MD PCP - General Emergency Medicine 09/30/19 [facility] [address] [place] [address] documented as of this encounter
--- OUTSIDE RECORDS SUMMARY | 2021-12-16 11:13 | XMS_ITS | Encounter Summary ---
:1955 Author Organization [place] Address [facility] [place] [address] Care Team Providers Name Role Phone Js Sousa MD Primary Care Provider Reason for Visit Auth/Cert Specialty Diagnoses / Procedures Referred By Contact Refer red To Contact Surgery Diagnoses Vaginal vault prolapse Cystocele, midline Rectocele Vaginal vault prolapse [N81.9] Cystocele, midline [N81.11] Rectocele [N81.6] Rh Periop Services Procedures C COMBINED ANT/POST COLPORRHAPHY HC CYSTOURETHROSCOPY HC CYSTOURETHROSCOPY W/ URETEROSCOPY &/OR PYELOSCOPY, DIAGNOSTIC sacrospinus suspension, anterior and posterior repairs, perineorrhaphy and cystoscopy CYSTOSCOPY [address] [place] [address] Phone: Fax: Referral ID Status Reason Start Date Expiration Date Visits Requ ested Visits Authorized [id number] 1 1 Encounter Details Date Type Department Care Team Description 10/09/2019 Surgery [facility] Alcira Tomlinson MD Sacrospinus ligament [facility] suspe nsion, Anterior and Services FOR WOMEN Posterior colporrhaphy, [address] [facility] [address] [facility] Perineorrhaphy and [place], [place] [address] Cystoscopy [address] [phone] Surgery Details Date/Time Status Location OR Service Patient Case Class Case Tr auma Class Type Case? 7/16/20 12:00 Posted [facility] OR OR 08 Gynecology Same Day Outpatient in PM Surgery Bed Panel 1 Procedure LRB Anes Op Region Wound Class Commen ts Sacrospinus ligament suspension, N/A General Perineum II- Clean Contaminated Anterior and Posterior colporrhaphy, Perineorrhaphy and Cystoscopy Cystoscopy N/A General Bladder II-Clean Contaminated Surgeon Surgeon Role Service Panel Alcira Tomlinson MD Primary Gynecology 1 Special Needs COVID-19 in [place] on 10/05, will fax results AG 10/07/19. I left message with HIM at [facility] to fax us results o r call us if results are still pending.Cori Ang RN 10/08/19 at 1650.Ht 5'4 Wt 194 lb statedNeeds T & S preop documented in this encounter Social History Tobacco Use Types Packs/Day Years [...] Sign Reading Time Taken Comments Blood Pressure 128/66 10/09/2019 2:30 PM CDT Pulse 54 10/09/2019 2:15 PM CDT Temperature 37.2 ??C (99 ??F) 10/09/2019 2:00 PM CDT Respiratory Rate 25 10/09/2019 2:30 PM CDT Oxygen Saturation 100% 10/09/2019 2:30 PM CDT Inhaled Oxygen Concentration - - [...] tablet by 0 (THERA-VIT-M) tablet mouth daily [place]-3 Fatty Acids (OMEGA Take 1,200 mg by [...] Medical Equipment: Bursitis of foot, left 1. [facility] [address] [facility], 2. [facility] -[id number] [place], [place] [address] [place] VITAMIN D, CHOLECALCIFEROL, Take 1,000 Units 0 [...] was confirmed and verified Dr. Alcira Tomlinson [facility] Care Female Pelvic Medicine and Reconstructive Surgery/Urogynecology Source Note - Sunni Provider - 10/08/2019 12:18 PM CDT documented in this encounter Nursing Notes Bailey Hickman RN - 10/09/2019 4:50 PM CDT Discharge instructions were completed with spouse and patient. All questions were answered. documented in this encounter Miscellaneous Notes Op Note - Alcira Tomlinson MD - 10/09/2019 1:54 PM CDT Operative Note Name: Sandy Sousa Location: [facility] Procedure Date: 10/09/19 PCP: Js Sousa Procedure(s): Sacrospinus ligament suspension, Anterior and Posterior colporrhaphy, Perineorrhaphy and Cystoscopy Pre-Procedure Diagnosis: (N81.9) Vaginal vault prolapse (primary encounter diagnosis) (N81.11) Cystocele, midline (N81.6) Rectocele Post-Procedure Diagnosis: Same Surgeon(s): Alcira Tomlinson MD photo studio assistant Elaina Matos CST Anesthesia Type: General Findings: Exam under anesthesia [...] in log * Lines, Drains, Airways: 16 Greek Kim Implants: * No implants in log [...] the decision was made to do a auqk-[id number]-tfo approach rather than placing a sling concomitantly [...] scissors were used to dissect the fibromuscular paver layer of the vaginal epithelium bilaterally. Then on [...] midli ne Rectocele Special Needs COVID-19 in [place] on , will fax results AG 10/07/19. I left message with HIM at [facility] to fax us results or call us if results are still pending.Cori Ang RN 10/07 at 1650.Ht 5'4 Wt 194 lb statedNeeds T & S preop COLPORRHAPHY, COMBINED 10/09/2019 11:43 AM Vagin al vault prolapse ANTEROPOSTERIOR CDT Cystocele, midli ne Rectocele Special Needs COVID-19 in [place] on , will fax results AG 10/07/19. I left message with HIM at [facility] to fax us results or call us [...] type and screen (10/09/2019 11:29 AM CDT) [facility] gist Method Time Signature ABO A 10/09/2019 [place] 12:01 PM CDT [facility] RH(D) Pos [facility] Antibody Neg 10/09/2019 [place] Screen 12:29 PM CDT [facility] Test Valid [place] 10/09/2019 [facility] 11:48 AM CDT [facility] Specimen 10/12/2019 10/09/2019 [place] Expires 11:48 AM CDT [facility] Specimen Anatomical Collection Method Collection Time Receive d Time (Source) Location / / Volume Laterality Blood specimen 10/09/2019 11:29 0 (specimen) AM CDT 11:30 AM CDT Alcira Tomlinson MD LAB - BLOOD BANK TEST ORDER Performing Organization Address City/State/ZIP Code Phon e Number M [facility] [address] [address] [facility] [address] [place], [place] [address] [place] [address] LAB RESULT - HIM SCAN (09/25/2019 12:00 [...] prolapse of vaginal mota Cystocele, midline Rectocele Vaginal vault prolapse Unspecified prolapse of vaginal mota Cystocele, midline [...] at 1400, Until Nivia 10/09/19 at 1851 lidocaine-EPINEPHrine 1 Given 10/09/2019 1:58 PM 22 mLs Operative %-1:[id number] injection CDT Site/Surgical S ite PRN, Starting on Nivia 10/09/19 at 1358, Intra-procedure meperidine (DEMEROL) injection 12.5 [...] (COMPLETED) 1202 (Given - Provid er: Purnima Ojeda APRN CRNA) Routine, 2 g, Intravenous, PRE-OP/PRE-DC OCEDURE, Starting Nivia 10/09/19 at 1051, For [...] mg 0.3-0.5 mg, Intravenous, EVERY 10 MIN DC N, other, acute pain. May administer if Respiratory Rate is greater than 10, Starting Nivia 7 at 1358, Max cumulative dose = 2 mg If fentaNYL (SUBLIMAZE) is a lso ordered, use HYDROmorphone (DILAUDID ) if pain control insufficient with fentaNYL (SUMBLIMAZE) or a longer acting agent is needed., PACU/Phase II lidocaine 1 % 0.1-1 mL (CANCELED) 1207 (Given - Provider: Abel Roy MD) 0.1-1 mL, Other, EVERY 1 HOUR PRN, mild pain with VAD insertion., Starting Nivia 7 at 1053, Do NOT give if patient has a history of allergy to any local anesthetic or any ashlyn product. MAX dose 1 mL subcutaneous OR intradermal in divid ed doses as needed for VAD insertion., Pre-procedure lidocaine-EPINEPHrine 1 %-1:700174 injection (CANCELED) 1358 (Given - Provider: Alcira [...] ondansetron (ZOFRAN) injection 4 mg(Linked Group 1) 1551 (Given - Provider: Holli Erickson, KAM) 4 mg, Intravenous, EVERY 30 MIN PRN, [...] (ZOFRAN-ODT) ODT tab 4 mg(Linked Group 1) 1551 (See Alternative - Provider: Holli Erickson RN) [...] take home use CONTINUOUS PRN, Starting Nivia 7 at 1358, Until Nivia 720 at 1851, May administer oral pain medications [...] vomiting, Administer over 2-5 Minutes, Starting Nivia 10/09/19 at 1359, For 2 [...] II documented in this encounter Care Teams Ironing Machine Operator Relationship Specialty Start Date End Date Js Sousa MD PCP - General Emergency Medicine 09/30/19 [facility] [address] [place] [address] documented as of this encounter
--- OUTSIDE RECORDS SUMMARY | 2021-12-16 11:13 | XMS_ITS | Encounter Summary ---
:1955 Author Organization [facility] Address [address] [place] [address]. [place] [address] Care Team Providers Name Role Phone Js Sousa MD Primary Care Provider [phone] Berta Blackwell DPM, Podiatry/Foot and Ankle Unavailable Surgery Encounter Details Date Type Department Care Team Description 07/19/2021 Travel Social History Tobacco Use Types Packs/Day [...] in contact with No / Unsu re 07/19/2021 10:03 AM CDT someone who was confirmed or suspected to have Coronavirus/COVID-19? documented as of this encounter Plan of Treatment Not on filedocumented as of this encounter Visit Diagnoses Not on filedocumented in this encounter Care Teams Refrigeration Plant Operator Relationship Specialty Start Date End Date Js Sousa PCP - General Emergency Medicine 09/30/19 MD Ke [facility] [address] [place] [address] Berta Blackwell DPM, Assigned Musculoskeletal 06/19/21 Podiatry/Foot and Provider Ankle Surgery [address] [place] [address] documented as of this encounter
--- OUTSIDE RECORDS SUMMARY | 2021-12-16 11:13 | XMS_ITS | Encounter Summary ---
:1955 Author Organization [facility] Address [address] [place] [address] Care Team Providers Name Role Phone Js Sousa MD Primary Care Provider Berta Blackwell DPM, Podiatry/Foot and Ankle Unavailable Surgery Reason for Visit Reason Comments Musculoskeletal Problem Left foot pain follow up- proving Encounter Details Date Type Department Care Team Description 07/19/2021 Office Visit [facility] Berta Blackwell, Left fo ot pain (Primary Dx); [facility] DPM, Podiatry/Foot Pes ca vus Podiatry and Ankle Surgery [address] [place] [address] [place], [place] [phone] (Wo rk) Social History Tobacco Use Types [...] have Coronavirus/COVID-19? documented as of this encounter Last Filed Vital Signs Vital Sign Reading Time Taken Comments Blood Pressure 124/84 07/19/2021 10:08 AM CDT Pulse - - Temperature - - Respiratory Rate - - Oxygen Saturation - - Inhaled Oxygen Concentration - - Weight 86.2 kg (190 lb) 07/19/2021 10:08 AM CDT Height 162.6 cm (5' 4) 07/19/2021 10:08 AM CDT Body Mass Index 32.61 07/19/2021 10:08 AM CDT documented in this encounter Patient Instructions Patient InstructionsJolene Rodriguez MA - 07/19/2021 10:26 AM CDT Thank you for choosing [facility] Podiatry / Foot & Ankle Surgery! DR [facility]: [facility] [address] [place] [address] TRIAGE LINE: [phone] APPOINTMENTS: [phone] RADIOLOGY: [phone] SET UP SURGERY: [phone] FAX NUMBER: [phone] BILLING QUESTIONS: [phone] Follow up: As needed Over the Counter Voltaren Gel documented in this encounter Progress Notes Berta Blackwell DPM, Podiatry/Foot and Ankle Surgery - 07/19/2021 10:15 AM CDT Podiatry / Foot and Ankle Surgery Progress Note July 19, 2021 Subject: Patient was seen for pain to the left foot. She notes that it has significantly improved and she does not have any pain to the side of her foot anymore. Notes the inserts have helped the most.No other concerns today. Objective: Vitals: BP 124/84 Ht 1.626 m (5' 4) Wt 86.2 kg (190 lb) BMI 32.61 kg/m?? BMI= Body mass index is 32.61 kg/m??. General: Patient is alert and orientated. NAD. Dermatologic: Skin is intact to both lower [...] assistive device or brace. Increased arch height. No further pain on palpation of the left fifth metatarsal base and with eversion of the left foot. ?? Radiographs: Left foot x-ray - I personally reviewed the xrays -increased calcaneal inclination angle. Degenerative changes noted to the first metatarsal phalangeal joint. No fractures are noted. ASSESSMENT: Left foot pain Pes cavus Medical Decision Making/Plan: Reviewed patient's chart in [employer]. At this time we will have her start to increase her activity in shoes and inserts. We will have her call if pain recurs and we will likely order an ankle MRI at that time. All questions were answered to patient satisfaction she will call for the questions or concerns. ?? Patient risk factor: Patient is at low risk for infection. Berta Blackwell DPM, Podiatry/Foot and Ankle Surgery CDT documented in this encounter Plan of Treatment Not on filedocumented as of this encounter Visit Diagnoses Diagnosis Left foot pain - Primary Pain in limb Pes cavus Talipes cavus documented in this encounter Care Teams Physical Science Aide Relationship Specialty Start Date End Date Js Souas PCP - General Emergency Medicine 09/30/19 MD Ke [facility] [address] [place] [address] Berta Blackwell DPM, Assigned Musculoskeletal 06/19/21 Podiatry/Foot and Provider Ankle Surgery [address] [place] [address] documented as of this encounter
--- OUTSIDE RECORDS SUMMARY | 2021-12-16 11:13 | XMS_ITS | Encounter Summary ---
:1955 Author Organization [facility] Address [address] [place] [address] Care Team Providers Name Role Phone Js [...] repairs, perineorrhaphy and cystoscopy CYSTOSCOPY [address] [place] [address] Phone: Fax: Referral ID Status Reason Start Date Expiration Date Visits Requ ested Visits Authorized [id number] 1 1 Encounter Details Date Type Department Care Team Description 10/09/2019 Anesthesia Event M [facility] Abel Schuler MD [facility] ANESTHESIA [id number] [place], [place] [id number] PeriOp Services Purnima Ojeda, FRAME WELDER [employer] MERCHANDISING ASSISTANT [address] [facility] [address] [place] [address] [address] [place] [address] Anesthesia Record Procedure Summary Procedure Name Responsible Anesthesia Start Anesthesia Stop Anesthesiologist Time Time Sacrospinus ligament Abel Roy MD 10/09/19 1202 1405 suspension, Anterior and Posterior colporrhaphy, Perineorrhaphy and Cystoscopy (N/A Perineum) Events Date Time Event Comment 10/09/2019 1202 An Start 1205 An Start Data 1206 MD Present 1207 An Induction 1209 An LMA 1211 MD Present 1221 AN INCISION 1303 MD Present 1357 LMA Removed 1357 an stop data 1402 MD Present 1405 An Stop Electronically s igned by Purnima Ojeda APRN CRNA on October 09, 2019 2:05 PM Name Total midazolam 1mg/mL 2 mg fentaNYL (SUBLIMAZE) injection 100 mcg propofol (DIPRIVAN) injection 10 mg/mL vial 150 mg propofol infusion (mcg/kg/min) 320.25 mg glycopyrrolate 0.2mg/mL 0.3 mg ondansetron 2mg/mL 4 mg dexamethasone 4 mg/mL 4 mg ketorolac 30 mg/mL 30 mg HYDROmorphone 1 mg/mL 1 mg ceFAZolin (ANCEF) intermittent infusion 2 g in 100 mL dextrose PRE-MIX 2 g lidocaine 1 % 0.1-1 mL 50 mg lactated ringers infusion 1,300 mL Agents Name NO HELIOX O2 N2O Air Exp Sevoflurane Exp Isoflurane Exp Desflurane Exp N2O Ins Sevoflurane Ins Isoflurane Ins Desflurane O2 Auxiliary Blood No blood administrations on file. Lines, Drains, and Airways Type Details Placement Removal Incision/Surgical Site 10/09/19; 1233; 10/09/19 1233 by Perineum Jewels Khan RN Peripheral IV 10/09/19; 20 G; 10/09/19 0000 by 10/09/19 1650 b y Anterior, Left; Hand Oralia Singh, Bailey Johnson, KAM Retired Non-Surgical 10/09/19; 1209; Easy; 10/09/19 1209 by 09/23 09/12 1357 by Airway Intravenous; Easy; 4; Purnima Ojedar, laryngeal mask airway; A, FR[employer] W[employer] MERCHANDISING ASSISTANT Purnima Tidwell APRN center of mouth; Equal, MERCHANDISING ASSISTANT clear and bilateral; Anesthesiologist; Dr Roy; Spontaneous ventilation, Adequate tidal volume, Head lift adequate, Herb Grower strength adequate, Follows commands, Transported with oxygen, Purposeful movement Urethral Catheter 10/09/19; 1222; No; 10/09/19 1222 by 10/09/19 1438 by /GI/TOPPIECE CHOPPER Pelvic Jewels Khan RN Driscoll, Susan, RN Procedure; 16 fr Packing 10/09/19; 1355; Vagina; 10/09/19 1355 by 0 1430 by Gauze radioMarleni Escobedo RN Driscoll, Sus an, RN vaginal packing; 1; 10/09/19; 1430 documented in this encounter Social History Tobacco [...] / COVID-19? documented as of this encounter OR Notes Anesthesia Postprocedure Evaluation - Abel Roy MD - 10/09/2019 2:12 PM CDT Patient: Sandy Sousa Procedure(s): Sacrospinus Suspension, Anterior and Posterior Repairs, Perineorrhaphy and Cystoscopy CYSTOSCOPY Diagnosis:Vaginal vault prolapse [N81.9] Cystocele, midline [N81.11] Rectocele [N81.6] Diagnosis Additional Information: No value filed. Anesthesia Type: General Note: Anesthesia Post Evaluation Patient location during evaluation: PACU Patient participation: Able to fully participate in evaluation Level of consciousness: awake Pain management: adequate Airway patency: patent Cardiovascular status: acceptable Respiratory status: acceptable Hydration status: euvolemic PONV: controlled Anesthetic complications: None Last vitals: Vitals: 10/09/19 1044 10/09/19 1400 BP: (!) 155/80 129/67 Pulse: 61 Resp: 20 19 Temp: 98.4 ??F (36.9 ??C) 99 ??F (37.2 ??C) SpO2: 97% 99% Electronically Signed By: Abel Roy MD October 09, 2019 2:12 PM Anesthesia Preprocedure Evaluation - Abel Roy MD - 10/09/2019 10:23 AM CDT Anesthesia Pre-Procedure Evaluation Patient: Sandy Sousa : 1955 Preoperative Diagnosis: Vaginal vault prolapse [N81.9] Cystocele, midline [N81.11] Rectocele [N81.6] Procedure(s): sacrospinus suspension, anterior and posterior repairs, perineorrhaphy and cystoscopy CYSTOSCOPY Past Medical History: Diagnosis Date ??? Complication of anesthesia ??? History of blood transfusion 1975 ??? Hypertension ??? Sleep apnea dental device Past Surgical History: Procedure Laterality Date ??? EXCISE EXOSTOSIS TOE(S) Left 09/18/2016 Procedure: EXCISE EXOSTOSIS TOE(S); Left foot tailor's bunionectomy or right fifth metatarsal partial exostosectomy; Surgeon: Berta Blackwell DPM, Podiatry/Foot and Ankle Surgery; Location: [facility] OR ??? HYSTERECTOMY TOTAL ABDOMINAL, BILATERAL SALPINGO-OOPHORECTOMY, COMBINED ??? TONSILLECTOMY, ADENOIDECTOMY, COMBINED Anesthesia Evaluation . Pt has had prior anesthetic. Type: General History of anesthetic complications - PONV ROS/MED HX ENT/Pulmonary: (+)sleep apnea, , . . (-) tobacco use, asthma and COPD Neurologic: (-) seizures, Delerium, Dementia, Neuropathy and migraines Cardiovascular: (+) hypertension----. : . . . :. dysrhythmias (RBBB) . (-) CAD, CHF and pulmonary hypertension METS/Exercise Tolerance: Hematologic: (+) History of Transfusion - Musculoskeletal: (+) arthritis, - GI/Hepatic: (-) GERD Renal/Genitourinary: (-) renal disease Endo: (+) Obesity, . (-) Type I DM, Type II DM, chronic steroid usage and other endocrine disorder Psychiatric: (-) psychiatric history Infectious Disease: - neg infectious disease ROS Malignancy: - no malignancy Other: - neg other ROS Physical Exam Airway Mallampati: II TM distance: >3 FB Neck ROM: full Dental Cardiovascular Rhythm and rate: regular and normal (-) no murmur Pulmonary breath sounds clear to auscultation Other findings: No lab results found. No lab results found. No results found for: WBC, HGB, HCT, PLT, CRP, SED, NA, POTASSIUM, CHLORIDE, CO2, BUN, CR, GLC, SIRENA,PHOS, MAG, ALBUMIN, PROTTOTAL, ALT, AST, GGT, ALKPHOS, BILITOTAL, BILIDIRECT, LIPASE, AMYLASE, GERARDO, PTT, INR, FIBR, TSH, T4, T3, HCG, HCGS, CKTOTAL, CKMB, TROPN Preop Vitals BP Readings from Last 3 Encounters: 11/20/18 136/68 09/29/16 132/82 09/18/16 145/68 Pulse Readings from Last 3 Encounters: No data found for Pulse Resp Readings from Last 3 Encounters: No data found for Resp SpO2 Readings from Last 3 Encounters: 09/18/16 99% Temp Readings from Last 1 Encounters: 09/18/16 98.2 ??F (36.8 ??C) Ht Readings from Last 1 Encounters: 10/08/19 1.626 m (5' 4) Wt Readings from Last 1 Encounters: 10/08/19 88 kg (194 lb) Estimated body mass index is 33.3 kg/m?? as calculated from the following: Height as of this encounter: 1.626 m (5' 4). Weight as of this encounter: 88 kg (194 lb). Anesthesia Plan History & Physical Review History and physical reviewed and following examination; no interval change. ASA Status: 2 . NPO Status: > 8 hours Plan for General with Propofol induction. Maintenance will be Balanced. PONV prophylaxis: Ondansetron (or other 5HT-3) Postoperative Care Postoperative pain management: IV analgesics and Oral pain medications. Consents Anesthetic plan, risks, benefits and alternatives discussed with: Patient.. Abel Roy MD . documented in this encounter Miscellaneous Notes Anesthesia Care Transfer Note - Purnima Ojeda APRN CRNA - 10/09/2019 2:05 PM CDT Patient: Sandy Sousa Procedure(s): Sacrospinus Suspension, Anterior and Posterior Repairs, Perineorrhaphy and Cystoscopy CYSTOSCOPY Diagnosis: Vaginal vault prolapse [N81.9] Cystocele, midline [N81.11] Rectocele [N81.6] Diagnosis Additional Information: No value filed. Anesthesia Type: General Note: Airway :Face Mask Patient transferred to:PACU Comments: Spontaneous respirations, oral suctioned, bilateral eye opening and hand grasps. Extubated to FM O2 6lpm. VSS to PACU.Handoff Report: Identifed the Patient, Identified the Reponsible Provider, Reviewedthe pertinent medical history, Discussed the surgical course, Reviewed Intra-OP anesthesia mangementand issues during anesthesia, Set expectations for post-procedure period and Allowed opportunity forquestions and acknowledgement of understanding Vitals: (Last set prior to Anesthesia Care Transfer) MERCHANDISING ASSISTANT VITALS 10/09/2019 1327 - 10/09/2019 1405 10/09/2019 NIBP: 139/72 Pulse: 64 SpO2: 100 % Resp Rate (observed): 20 EKG: Sinus rhythm Electronically Signed By: Purnima Ojeda APRN CRNA October 09, 2019 2:05 PM documented in this encounter Plan of Treatment Not on filedocumented as of this encounter Visit Diagnoses Not on filedocumented in this encounter Administered Medications Inactive Administered Medications - up to 3 most recent administrations Medication Order MAR Action Action Date Dose Rate Site ceFAZolin (ANCEF) intermittent Given 10/09/2019 12:02 PM CDT 2 g infusion 2 g in 100 mL dextrose PRE-MIX Routine, 2 g, Intravenous, PRE-OP/PRE-PROCEDURE, Starting on Nivia 10/09/19 at 1051, For 1 dose, Give first dose within 1 hour PRIOR to incision. If patient weight is greater than or equal to 120 kg increase dose to 3 g., Indications: Perioperative Pharmacoprophylaxis, Pre-procedure dexamethasone (DECADRON) injection Given 10/09/2019 12:07 PM CDT 4 mg Intravenous, PRN, Administer over 1 Minutes, Starting on Nivia 10/09/19 at 1207, Anesthesia Intra-op fentaNYL (PF) (SUBLIMAZE) injection Given 10/09/2019 12:07 PM CDT 100 mcg PRN, Administer over 3-5 Minutes, Starting on Nivia 10/09/19 at 1207, Anesthesia Intra-op glycopyrrolate (ROBINUL) injection Given 10/09/2019 12:15 PM CDT 0.1 mg PRN, Administer over 1-2 Minutes, Starting on Nivia 10/09/19 at 1207, Anesthesia Intra-op Given 10/09/2019 12:07 PM CDT 0.2 mg HYDROmorphone (DILAUDID) injection Given 10/09/2019 1:47 PM CDT 0.25 mg Intravenous, PRN, Starting on Nivia 10/09/19 at 1224, Anesthesia Intra-op Given 10/09/2019 1:44 PM CDT 0.25 mg Given 10/09/2019 12:24 PM CDT 0.5 mg ketorolac (TORADOL) injection Given 10/09/2019 1:32 PM CDT 30 mg Intravenous, PRN, Administer over 2 Minutes, Starting on Nivia 10/09/19 at 1332, Anesthesia Intra-op lactated ringers infusion New Bag 10/09/2019 1:01 PM CDT at 25 mL/hr, Intravenous, CONTINUOUS, IF patient NOT on dialysis., Pre-procedure, Starting on Nivia 10/09/19 at 1100, Until Nivia 10/09/19 at 1407 New Bag 10/09/2019 11:41 AM CDT lidocaine 1 % 0.1-1 mL Given 10/09/2019 12:07 PM CDT 50 mg 0.1-1 mL, Other, EVERY 1 HOUR PRN, mild pain with VAD insertion., Starting on Nivia 10/09/19 at 1053, Do NOT give if patient has a history of allergy to any local anesthetic or any ashlyn product. MAX dose 1 mL subcutaneous OR intradermal in divided doses as needed for VAD insertion., Pre-procedure midazolam (VERSED) injection Given 10/09/2019 12:02 PM CDT 2 mg Administer over 2 Minutes, PRN, Starting on Nivia 10/09/19 at 1202, Anesthesia Intra-op ondansetron (ZOFRAN) injection Given 10/09/2019 1:32 PM CDT 4 mg PRN, Administer over 2-5 Minutes, Starting on Nivia 10/09/19 at 1332, Anesthesia Intra-op propofol (DIPRIVAN) infusion Rate/Dose 10/09/2019 1:02 30 mcg/kg/min 15.8 mL/hr Intravenous, CONTINUOUS PRN, Change PM CDT Starting on Nivia 10/09/19 at 1211, Anesthesia Intra-op Rate/Dose Change 10/09/2019 12:50 PM CDT 40 mcg/kg/min 21 mL/hr New Bag 10/09/2019 12:11 PM CDT 50 mcg/kg/min 26.3 mL/hr propofol (DIPRIVAN) injection 10 mg/mL v ial Given 10/09/2019 12:07 PM CDT 150 mg PRN, Starting on Nivia 10/09/19 at 1207, Anesthesia Intra-op documented in this encounter Care Teams Client Development Manager Relationship Specialty Start Date End Date Js Sousa MD PCP - General Emergency Medicine 09/30/19 [facility] [address] [place] [address] documented as of this encounter
--- OUTSIDE RECORDS SUMMARY | 2021-12-16 11:13 | XMS_ITS | Encounter Summary ---
:1955 Author Organization [facility] Address [address] [place] [address]. [place] [address] Care Team Providers Name Role Phone Js Sousa MD Primary Care Provider [phone] Encounter Details Date Type Department Care Team Description 10/09/2019 Travel Social History Tobacco Use Types Packs/Day [...] filedocumented in this encounter Care Teams Business Leader Relationship Specialty Start Date End Date Js Sousa MD PCP - General Emergency Medicine 09/30/19 [facility] [address] [place] [address] documented as of this encounter
--- OUTSIDE RECORDS SUMMARY | 2021-12-16 11:14 | XMS_ITS | Encounter Summary ---
:1955 Author Organization [facility] Address [address] [place] [address]. [place] [address] Care Team Providers Name Role Phone Unavailable Primary Care Provider Unavailable Reason for Visit Auth/Cert Specialty Diagnoses / Procedures Referred By Contact Refer red To Contact Surgery Diagnoses [place] [facility] Periop Services Procedures EXCISE EXOSTOSIS TOE(S) [address] [place], [place] [address] Phone: Fax: Referral ID Status Reason Start Date Expiration Date Visits Requ ested Visits Authorized [id number] 1 1 Encounter Details Date Type Department Care Team Description 09/18/2016 Hospital Encounter [facility] Berta Blackwell P ost-operative state (Primary Dx); [place] PreOP/PostOP DPM, Bunionette of left foot [address] [facility] Podiatry/Foot and [place], [place] Ankle Surgery [id number] [address] [phone] [address] [place], [place] [phone] Social History Tobacco Use Types Packs/Day Years Used Date Former Smoker Cigarettes 1 5 Quit: 11/25/19 08 Alcohol Use Standard Drinks/Week Comments No 0 (1 standard drink = 0.6 oz pure alcoho l) Sex Assigned at Date Recorded Female 07/17/2021 8:09 AM CDT documented as of this encounter Last Filed Vital Signs Vital Sign Reading Time Taken Comments Blood Pressure 145/68 09/18/2016 4:30 PM CDT Pulse - - Temperature 36.8 ??C (98.2 ??F) 09/18/2016 4:15 PM CDT Respiratory Rate - - Oxygen Saturation 99% 09/18/2016 4:30 PM CDT Inhaled Oxygen Concentration - - Weight 91.2 kg (201 lb) 09/18/2016 2:00 PM CDT Height 162.6 cm (5' 4) 09/18/2016 2:00 PM CDT Body Mass Index 34.5 09/18/2016 2:00 PM CDT documented in this encounter Discharge Instructions Discharge InstructionsMeenakshi Hernandez RN - 09/18/2016 3:50 PM CDT GENERAL ANESTHESIA OR SEDATION ADULT DISCHARGE INSTRUCTIONS [...] Sig Dispensed Refills Start Date End Date Calcium Citrate-Vitamin Take 1 tablet by mouth 0 D (CALCIUM CITRATE daily CHEWY BITE PO) multivitamin w/minerals Take 1 tablet by mouth 0 (THERA-VIT-M) tablet daily Forreston-3 Fatty Acids Take 1,200 mg by mouth 0 (OMEGA 3 PO) daily order for Please dispense up to 3 pair s of knee high compression stockings at 20-30 mmHg. 3 Device 0 08/29/2016 DMEIndications: Left foot pain, [facility] Medical Equipment: bunion of left foot, Bursitis of foot, left 1. [facility] - [address] [place] [facility]is[address] [facility], [phone] 2. [facility] Medical Equipment [facility] Specialty C are [place] -[address] [place] [address] [place] VITAMIN D, Take 1,000 Units by 0 CHOLECALCIFEROL, PO mouth daily HYDROcodone-acetaminoph Take 1-2 tablets by 30 tablet 0 10/07/2019 en (NORCO) 5-325 MG per mouth every 4 hours as tabletIndications: needed for other Post-operative state, (Moderate to Severe Bunionette of left foot Pain) ondansetron Take 2 tablets (8 mg) 10 tablet 0 09/18/2016 (ZOFRAN-ODT) 4 MG ODT by mouth every 8 hours tabIndications: as needed for nausea Post-operative state, Dissolve ON the Bunionette of left foot tongue. senna-docusate Take 1-2 tablets by 30 tablet 0 09/18/2016 0 10/07/2019 (SENOKOT-S;PERICOLACE) mouth 2 times daily 8.6-50 MG per Take while on oral tabletIndications: narcotics to prevent Post-operative state, or treat constipation. Bunionette of left foot vitamin B complex with Take 1 tablet by mouth 0 10/07/2019 vitamin C (VITAMIN B daily COMPLEX) TABS tablet documented as of this encounter Miscellaneous Notes Op Note - Berta Blackwell DPM, Podiatry/Foot and Ankle Surgery - 09/18/2016 3:59 PM CDT DATE OF PROCEDURE: 09/18/2016 SURGEON: Berta Blackwell DPM LABORER: Darren Shahid DPM PREOPERATIVE DIAGNOSES: 1. Left foot pain. 2. Left foot tailor's bunion. POSTOPERATIVE DIAGNOSES: 1. Left foot pain. 2. Left foot tailor's bunion. PROCEDURES: Left foot tailor's bunionectomy or right fifth metatarsal partial exostosectomy. ANESTHESIA: MAC with local. HEMOSTASIS: Pneumatic ankle tourniquet with electrocautery. ESTIMATED BLOOD LOSS: Less than 10 mL. MATERIALS: None. SPECIMENS: Soft tissue mass for pathology. INDICATIONS: Ms. Sandy Lucero is a 61-year-old female who presented to clinic with pain to the left foot. On physical exam, she has a more prominent bump laterally on the left fifth met head. This rubs in shoes and is hard for her to find shoes to wear even with wider shoe sizes. On physical exam, she does have a prominent palpable lateral mass at the fifth met head. X-rays show minimal bone with patient to go in and shave down the bone to try to help with pressure relief. Risks, benefits and complications were explained to the patient. No guarantees were made. The patient wishes to proceed with surgery. DESCRIPTION OF PROCEDURE: The patient was brought into the operating room and placed on the operating table in a supine position. Anesthesia was administered and pneumatic ankle tourniquet was applied to the left ankle. Local was injected and the foot was prepped and draped using sterile technique. The tourniquet was inflated to 250 mmHg. Attention was directed to the dorsal aspect of the left fifth metatarsophalangeal joint area. A linear incision approximately 4 cm was made over this area through skin. Blunt dissection was used down to the level of the joint. All vessels that were noted were ligated with electrocautery. Another linear incision was made through periosteum and capsule down to bone. The periosteum and capsule were sharply dissected off of the head of the fifth metatarsal and there was a prominent bone spur noted laterally to the fifth met head. This was removed using sagittal saw. There was also soft tissue mass noted over the fifth metatarsal head prominence. This was excised and sent for pathology. The wound was flushed with copious amounts of normal saline. The periosteum was reapproximated using 4-0 Vicryl, andthe skin was repaired and approximated using 4-0 Prolene. The patient's foot was placed in a dry sterile dressing. The patient, procedure and anesthesia well and was transferred to recovery with vital signs stable and vascular status intact. The patient will be minimal weightbearing in a postop shoe. She is given Vicodin for pain. She will follow up in 1 week for dressing change. BERTA BLACKWELL DPM MT: [id number] Name: SANDY LUCERO Account: [id number] : 1955 Procedure Date: 09/18/2016 Document: [id number] Brief Op Note - Berta Blackwell DPM, Podiatry/Foot and Ankle Surgery - 09/18/2016 3:49 PM CDT [facility] Brief Operative Note Pre-operative diagnosis: Tailors Bunion Post-operative diagnosis same Procedure: Procedure(s): Left 5th Metatrsal Exosectomy - Wound Class: I-Clean Surgeon(s): Surgeon(s) and Role: * Berta Blackwell DPM, Podiatry/Foot and Ankle Surgery - Primary Swaging Machine Operator: Tootie Shahid DPM Estimated blood loss: 2 mL Specimens: ID Type Source Tests Collected by Time Destination A : Left foot soft tissue Tissue Foot, Left SURGICAL PATHOLOGY EXAM Berta Blackwell DPM, Podiatry/Foot and Ankle Surgery 09/18/2016 3:33 PM Findings: See op note Op Note - Berta Blackwell DPM, Podiatry/Foot and Ankle Surgery - 09/18/2016 12:00 AM CDT Provider: Berta Blackwell DPM Patient: Sandy Madsen : 1955 WORK TYPE: Operative Report DATE OF SURGERY: 09/18/2016 SURGEON: Berta Blackwell DPM LABORER: Tootie Angulo DPM PREOPERATIVE DIAGNOSES: 1. Left foot pain. 2. Left foot tailor???s bunion. POSTOPERATIVE DIAGNOSES: 1. Left foot pain. 2. Left foot tailor???s bunion. PROCEDURE: Left foot tailor???s bunionectomy or left fifth metatarsal partial exostectomy. ANESTHESIA: MAC with local. HEMOSTASIS: Pneumatic ankle tourniquet with electrocautery. ESTIMATED BLOOD LOSS: Less than 10 mL. SPECIMENS: Soft tissue mass for pathology. MATERIALS: None. INDICATIONS: The patient is a 60-year-old female who presented to the clinic with pain to the left foot. On physical examination, she has more prominent bump laterally on the left fifth metatarsal head. This rubs in shoes and is hard for her to find shoes to wear even with wider shoe sizes. On physical exam, she does have a prominent palpable lateral mass at the fifth metatarsal head. X-rays show minimal bone to area. Recommend to go in a shave down the bone to try to help with pressure release. Risks, benefits and complications were explained to the patient. No guarantees were made. The patient wishes to proceed with procedure. DESCRIPTION OF PROCEDURE: The patient was brought to the operating room and placed on the operating room table in supine position. Anesthesia was administered and pneumatic ankle tourniquet was appliedto the left ankle. Local was injected and the foot was prepped and draped using sterile technique. The tourniquet was inflated to 250 mmHg and attention was directed to the dorsal aspect of the left fifth metatarsal phalangeal joint. A linear incision, approximately 4 cm, was made over this area through skin. Blunt dissection was used down to the level of the joint. All vessels that were noted were ligated with electrocautery. Another linear incision was made through periosteum and capsule down to bone. The periosteum and capsule were sharply dissected off of the head of the fifth metatarsal and there was a prominent one spur noted laterally to the fifth metatarsal head. This was removed using sagittal saw. There was also soft tissue mass noted over the fifth metatarsal head prominence. This was excised and sent for pathology. The wound was flushed with copious amounts of normal saline. The periosteum was reapproximated using 4-0 Vicryl and the skin was reapproximated using 4-0 Prolene. The patient???s foot was placed in dry sterile dressing. The patient tolerated procedure and anesthesia well and was transferred to recovery with vital signsstable and vascular status intact. The patient will be minimal weight bearing in a postop shoe. She is given Vicodin for pain. She will follow up in one week for dressing change. CDT documented in this encounter Plan of Treatment Not on filedocumented as of this encounter Procedures Procedure Name Priority Date/Time Associated Diagnosis Comme nts XR FOOT PORT LEFT 2 STAT 09/18/2016 4:01 PM Re sults for this VIEWS CDT procedure are i n the results section. SURGICAL PATHOLOGY Routine 09/18/2016 3:33 PM Res ults for this EXAM CDT procedure are i n the results section. EXCISION, 09/18/2016 2:58 PM [place] EXOSTOSIS, TOE CDT Special Needs 5'4, 199# stated EKG CARDIAC - HIM SCAN 09/14/2016 12:00 AM CDT documented in this encounter Results XR Foot Port Left 2 Views (09/18/2016 4:01 PM CDT) Anatomical Region Laterality Modality Left Foot Left Digital Radiography Specimen (Source) Anatomical Location Collection Method / Collectio n Time Received Time / Laterality Volume Narrative 09/18/2016 5:45 PM CDT XR FOOT PORT LT 2 VW ?09/18/2016 4:01 PM ?? HISTORY: post op state COMPARISON: None. FINDINGS: ??There is normal osseous alig nment. ??No fractures are identified. ??Soft tissue swelling is se en over the fifth metatarsal and proximal phalanx of the fifth toe. A small amount of subcutaneous gas is seen in this region. No foreign b odies are identified. FREEDOM SIMMONS MD Procedure Note Steve Simmons MD - 09/18/2016For matting of this note might be different from the original. XR FOOT PORT LT 2 VW 09/18/2016 4:01 PM HISTORY: post op state COMPARISON: None. FINDINGS: There is normal osseous alignm ent. No fractures are identified. Soft tissue swelling is seen over the fifth metatarsal and proximal phalanx of the fifth toe. A small amount of subcutaneous gas is seen in this region. No foreign b odies are identified. FREEDOM SIMMONS MD Berta Blackwell DPM, Podiatry/Foot and Ankle Surgery IMG DIAGNOSTIC IMAGING ORDERABLES Surgical pathology exam (09/18/2016 3:33 PM CDT) Component Value Ref Test Analysis Performed At [facility] Range Method Time Signature Copath Report Patient Name: SANDY LUCERO MR#: [id number] Specimen #: [id number] Collected: 09/18/2016 Received: 09/18/2016 Reported: 09/19/2016 14:38 Ordering Phy(s): BERTA BLACKWELL For improved result formatting, select 'View Enhanced Report Format' under Linked Documents section. SPECIMEN(S): Left foot soft tissue FINAL DIAGNOSIS: Soft tissue, left foot, resection- - Reactive changes with fibrosis, dystrophic calcifications, and stromal degeneration; benign. Electronically signed out by: Sachi Brown M.D. CLINICAL HISTORY: Tailor's bunion. GROSS: The specimen is received in formalin labeled with the patien t's name, identifying information and left foot soft tissue. ??It co nsists of two pink soft tissue fragments, aggregating to 0.8 x 0.5 x 0.3 c m. Submitted entirely in one block. (Dictated by: Leighann Oconnor 09/18/2016 04:06 PM) MICROSCOPIC: Microscopic examination is performed. CPT Codes: A: 43735-OJ9 TESTING LAB LOCATION: [address] ??[id number] COLLECTION SITE: Client: [facility] Location: [facility] (R) Specimen (Source) Anatomical Collection Method Collection Time Re ceived Time Location / / Volume Laterality Tissue specimen STRUCTURE OF LEFT 09/18/2016 3:33 PM (specimen) FOOT / Unknown CDT Berta Blackwell DPM, Podiatry/Foot and Ankle Surgery LAB - [facility] Performing Organization Address City/State/ZIP Code Phon e Number COPATH EKG CARDIAC - HIM SCAN (09/14/2016 12:00 AM CDT) Specimen (Source) Anatomical Location Collection Method / Collectio n Time Received Time / Laterality Volume 09/14/2016 Narrative This result has an attachment that is no t available. Provider Outside ECG ORDERABLES documented in this encounter Visit Diagnoses Diagnosis Post-operative state - Primary Other postprocedural status Bunionette of left foot documented in this encounter Administered Medications Inactive Administered Medications - up to 3 most recent administrations Medication Order MAR Action Action Date Dose Rate Site fentaNYL Citrate (PF) (SUBLIMAZE) inject ion 25-50 mcg 25-50 mcg, Intravenous, EVERY 2 MIN PRN, other, acute pain while in PACU., Starting on Sun09/18/16 at 1550, MAX cumulative d ose = 250 mcg. Use Fentanyl initially, as a short acting agent for acute pain control. If insuffic ient, or a longer acting agent is needed, begin Morphine or Hydromorphone if or dered., PACU fentaNYL Citrate (PF) (SUBLIMAZE) inject ion 25-50 mcg 25-50 mcg, Intravenous, EVERY 15 MIN PRN, other, acute pain while in Phase II, Starting on Sun09/18/16 at 1551, MAX cumulative dose = 250 mcg. Use Fentanyl initially, as a short acting agent for a cute pain control. If insufficient, or a longer acting agent is needed, begin Mor phine or Hydromorphone if ordered., Phase ll HYDROmorphone (PF) (DILAUDID) injection 0.3-0.5 mg 0.3-0.5 mg, Intravenous, EVERY 10 MIN CA N, other, acute pain.?May administer if Respiratory Rate is greater than 10, Sta rting on Sun09/18/16 at 1551, If fentanyl is also ordered, use HYDROmorphone if pa in control insufficient with fentanyl or a longer acting agent is needed. Max cumulative dose = 2 mg, PACU/Phase II lactated ringers infusion at 100 mL/hr, Intravenous, CONTINUOUS, Continue until IV catheter is weaned, PACU/Phase II, Starting on Sun09/18/16 at 1600, Until Sun09/18/16 at 1852 meperidine (DEMEROL) injection 12.5 mg 12.5 mg, Intravenous, EVERY 15 MIN PRN, post anesthesia shivering, Starting on Sun09/18/16 at 1551, For 2 doses, PACU/Phase II naloxone (NARCAN) injection 0.1-0.4 mg 0.1-0.4 mg, Intravenous, EVERY 2 MIN PRN , opioid reversal, Starting on Sun09/18/16 at 1551, For 24 hours, For apnea or imminent [...] are met for a minimum of 2 hours., PACU/Phase II ondansetron (ZOFRAN) injection 4 mg 4 mg, Intravenous, EVERY 30 MIN PRN, belia sea, vomiting, Administer over 2-5 Minutes, Starting on Sun09/18/16 at 1551, For 2 d oses, MAX total dose = 8 mg, including OR dosing. This is step 1 of the nausea and vomiting protocol. If not resolved in 15 minutes, then go to step 2 (Prochlorpera zine if ordered). Irritant., PACU/Phase II ondansetron (ZOFRAN-ODT) ODT tab 4 mg 4 mg, Oral, EVERY 30 MIN PRN, nausea, vo miting, Starting on Sun09/18/16 at 1551, For 2 doses, MAX total dose = 8 mg, including OR dosin g. This is step 1 of the nausea and vomiting protocol. If not resolved in 15 mi nutes, then go to step 2 (Prochlorperazine if ordered)., PACU/Phase II ORAL Pain Medications - may administer a s ordered by surgeon for take home use CONTINUOUS PRN, Starting on Sun09/18/16 at 1551, Until Sun09/18/16 at 1852, May administer oral pain medications as ordered by surgeon for take home use. Discontinue IV pain medication prior to administration of oral pain medication., PACU/Phase II documented in this encounter Active and Recently Administered Medications Times are shown in CDT. Scheduled Medication Order 09/16/2016 09/17/2016 09/18/2016 ceFAZolin sodium-dextrose (ANCEF) infusion 2 g (COMPLETED) 1507 (Given - Provider: Amador Correia) 2 g, Intravenous, PRE-OP/PRE-PROCEDURE, Starting Sun09/18/16 at 1357, For 1 dose, Give first dose within 1 hour PRIOR to incision. If patient weight is greater than or equal to 120 kg increase dose to 3 g., Indications: Surgical Prophylaxis, Pre-procedure Continuous Medication Order 09/16/2016 09/17/2016 09/18/2016 lactated ringers infusion (CANCELED) 1507 (New Bag - Provider: Amador Correia)1537 (Anesthesia Volume Adjustment - Provider: Amador Correia) at 25 mL/hr, Intravenous, CONTINUOUS, IF patient NOT on dialysis., Pre- procedure, Starting Sun09/18/16 at 1430, Until Sun09/18/16 at 1550 lactated ringers infusion 1600 ( Canceled Entry - Provider: Magali Generic Provider - Comment: Automatically canceled at discontinue of medication order) at 100 mL/hr, Intravenous, CONTINUOUS, C ontinue until IV catheter is weaned, PACU/Phase II, Starting Sun09/18/16 at 1600, Until Sun09/18/16 at 1852 PRN Medication Order 09/16/2016 09/17/2016 09/18/2016 bupivacaine (MARCAINE) preservative free injection 0.5% (PF) (CA NCELED) 1537 (Given - Provider: Berta Blackwell DPM, Podiatry/Foot and Ankle Surgery) PRN, Starting Sun09/18/16 at 1537, Intra-procedure fentaNYL Citrate (PF) (SUBLIMAZE) injection 25-50 mcg 25-50 mcg, Intravenous, EVERY 2 MIN PRN, Starting Sun09/18/16 at 1550, other, acute pain while in PACU., MAX cumulative dose = 250 mcg. Use Fentanyl initially, as a short acting agent for acute pain con trol. If insufficient, or a longer actin g agent is needed, begin Morphine or Hydromorphone if ordered., PACU fentaNYL Citrate (PF) (SUBLIMAZE) injection 25-50 mcg 25-50 mcg, Intravenous, EVERY 15 MIN PRN , Starting Sun09/18/16 at 1551, other, acute pain while in Phase II, MAX cumulative dose = 250 mcg. Use Fentanyl initially, as a short acting agent for acute pain control. If insufficient, or a longer a cting agent is needed, begin Morphine or Hydromorphone if ordered., Phase ll HYDROcodone-acetaminophen (NORCO) 5-325 MG per tablet 1-2 tablet 1-2 tablet, Oral, ONCE PRN, moderate to severe pain, Starting 09/18/16 at 1551, For 1 dose, One time prior to discharge. Maximum acetaminophen dose from all sources= 75 mg/kg/day not to exceed 4 grams, Post-procedure HYDROmorphone (PF) (DILAUDID) injection 0.3-0.5 mg 0.3-0.5 mg, Intravenous, EVERY 10 MIN CA N, Starting Sun09/18/16 at 1551, Until Sun09/18/16 at 1852, other, acute pain.?May administer if Respiratory Rate is greater than 10, PACU/Phase II, If fentany l is also ordered, use HYDROmorphone if pain control insufficient with fentanyl or a longer acting agent is needed. Max cumulative dose = 2 mg meperidine (DEMEROL) injection 12.5 mg 12.5 mg, Intravenous, EVERY 15 MIN PRN, 2 doses, Starting Sun09/18/16 at 1551, Until Sun09/18/16 at 1852, post anesthesia shivering, PACU/Phase II naloxone (NARCAN) injection 0.1-0.4 mg 0.1-0.4 mg, Intravenous, EVERY 2 MIN PRN , opioid reversal, Starting Sun09/18/16 at 1551, For 24 hours, For apnea or imminent [...] ntil discharge criteria are met for a minimum of 2 hours., PACU/ Phase II ondansetron (ZOFRAN) injection 4 mg(Linked Group 1) 4 mg, Intravenous, EVERY 30 MIN PRN, belia sea, vomiting, Administer over 2-5 Minutes, Starting 09/18/16 at 1551, For 2 doses, MAX total dose = 8 mg, including OR dosing. This is step 1 of the nausea an d vomiting protocol. If not resolved in 15 minutes, then go to step 2 (Prochlorperazine if ordered). Irritant., PACU/Phase II ondansetron (ZOFRAN-ODT) ODT tab 4 mg(Linked Group 1) 4 mg, Oral, EVERY 30 MIN PRN, nausea, vo miting, Starting 09/18/16 at 1551, For 2 doses, MAX total dose = 8 mg, including OR dosing. This is step 1 of the nausea and vomiting protocol. If not resolved in 15 minutes, then go to step 2 (Prochlorperazine if ordered)., PACU/Phase II ORAL Pain Medications - may administer as ordered by surgeon for take home use CONTINUOUS PRN, Starting 09/18/16 at 1551, Until 09/18/16 at 1852, May administer oral pain medications as ordered by surgeon for take home use. Discontinue IV pain medication prior to administration of oral pain medication., PACU/Phase II Linked Groups Order Group 1: ondansetron (ZOFRAN-ODT) ODT tab 4 mgJump to med 4 mg, Oral, EVERY 30 MIN PRN, nausea, vo miting, Starting 09/18/16 at 1551, For 2 doses
MAX total dose = 8 mg, including OR dosing. This is step 1 of the nausea and vomiting protocol.&nbs p; If not resolved in 15 minutes, t hen go to step 2 (Prochlorperazine if ordered).
PACU/Phase II Or ondansetron (ZOFRAN) injection 4 mgJump to med 4 mg, Intravenous, EVERY 30 MIN PRN, belia sea, vomiting, Administer over 2-5 Minutes, Starting 09/18/16 at 1551, For 2 doses
MAX total dose = 8 mg, including OR dosing. This is step 1 of the n ausea and vomiting protocol. If not resolved in 15 minutes, then go to step 2 (Prochlorperazine if ordered). Irritant.
PACU/Phase II documented in this encounter
--- OUTSIDE RECORDS SUMMARY | 2021-12-16 11:14 | XMS_ITS | Encounter Summary ---
:1955 Author Organization [facility] Address [address] [place] [address]. [place] [address] Care Team Providers Name Role Phone Unavailable Primary Care Provider Unavailable Encounter Details Date Type Department Care Team Description 08/29/2016 Radiant Appointment [facility] Berta Blackwell, Left foot pain Clinic [place], Podiatry/Foot [id number] [facility] and Ankle Surgery [place], [place] [id number] [place] [id number] [facility] [address] [place] [address] Social History Tobacco Use Types Packs/Day Years Used Date Former Smoker Quit: 11/25/19 08 Sex Assigned at Date Recorded Female 07/17/2021 8:09 AM CDT documented as of this encounter Plan of Treatment Not on filedocumented as of this encounter Procedures Procedure Name Priority Date/Time Associated Diagnosis Comme nts XR FOOT LEFT G/E 3 Routine 08/29/2016 8:41 AM Left foot pain R esults for this VIEWS CDT procedure are i n the results section. documented in this encounter Results XR Foot Left G/E 3 Views (08/29/2016 8:41 AM CDT) Anatomical Region Laterality Modality Foot, Ankle Left Computed Radiography Specimen (Source) Anatomical Location Collection Method / Collectio n Time Received Time / Laterality Volume Impressions 08/29/2016 3:37 PM CDT IMPRESSION: The great toe proximal phalanx may be shortened. This may be related to normal variation or remote injury. Joint space widths appear within normal limits. No acute fr acture is demonstrated. The foot is otherwise unremarkable in appear ance. ANIBAL HERRERA MD Narrative 08/29/2016 3:37 PM CDT XR FOOT LT G/E 3 VW 08/29/2016 8:41 AM HISTORY: Pain in left foot Procedure Note Raquel Herrera MD - 08/29/2016Formatt ing of this note might be different from the original. XR FOOT LT G/E 3 VW 08/29/2016 8:41 AM HISTORY: Pain in left foot IMPRESSION: The great toe proximal phala nx may be shortened. This may be related to normal variation or remote injury. Joint space widths appear within normal limits. No acute fr acture is demonstrated. The foot is otherwise unremarkable in appear ance. ANIBAL HERRERA MD Berta BAIM, Podiatry/Foot and Ankle Surgery IMG DIAGNOSTIC IMAGING ORDERABLES documented in this encounter Visit Diagnoses Diagnosis Left foot pain Pain in limb documented in this encounter
--- OUTSIDE RECORDS SUMMARY | 2021-12-16 11:14 | XMS_ITS | Encounter Summary ---
:1955 Author Organization [place] Address [address] [place] [address] Care Team Providers Name Role Phone Unavailable Primary Care Provider Unavailable Encounter Details Date Type Department Care Team Description 09/20/2006 Historic Results INTERFACED REPORT Grace Langley MD Social History Tobacco Use Types Packs/Day Years Used Date Never Assessed Sex Assigned at Date Recorded Female 07/17/2021 8:09 AM CDT documented as of this encounter Plan of Treatment Not on filedocumented as of this encounter Procedures Procedure Name Priority Date/Time Associated Diagnosis Comme nts HISTOPATHOLOGY Routine 09/20/2006 12:00 AM Result s for this CDT procedure are i n the results section . documented in this encounter Results Histopathology (09/20/2006 12:00 AM CDT) Component Value Ref Test Analysis Performed At [facility] Range Method Time Signature Copath Report CASE: [id number] ^ COPATH Patient Name: BUNNY LUCERO MR#: [id number] Specimen #: [id number] Collected: 09/20/2006 Received: 09/20/2006 Reported: 09/21/2006 11:58 Ordering Phy(s): GRACE LANGLEY Additional Phy(s): Myesha CARLOS SPECIMEN(S): A: Cecal polyp B: Mid distal rectal polyp FINAL DIAGNOSIS: A. ??Cecal polyp, polypectomy - Cauterized serrated polyp co nsistent with sessile serrated adenoma. ??No evidence of high grade dyspla caty or malignancy. B. ??Mid distal rectum polyp, biopsy - Fragments of hyperpla stic polyp(s). ??No evidence of malignancy. Electronically signed out by: Aj Wright M.D. CLINICAL HISTORY: Screening. GROSS: A. ??The specimen is labeled possible cecal polyp and it c onsistsof a 0.1 x 0.1 cm in greatest dimension pink-brantley fragment. ??Enti rely submitted. B. ??The specimen is labeled mid distal rectum polyp and i t consists of two pink-brantley fragments aggregating to 0.3 x 0.3 x 0.1 cm. ?? Entirely submitted. ??TJK/hayden MICROSCOPIC: A. ??Sections show a crush/cauterized tangentially oriented serrated polyp. ??The crypts show focal branching and slight dilatati on. ??These histologic features and right-sided location favor a sessile serrated adenoma over hyperplastic polyp. ??There is no evidence of h igh grade dysplasia or malignancy. B. ??Microscopic evaluation performed. SABIHA/funmi 09-21-06 TESTING LAB LOCATION: [address] ??[address] COLLECTION SITE: Client: [facility] Location: ENDO (R) Specimen (Source) Anatomical Collection Method Collection Time Re ceived Time Location / / Volume Laterality 09/20/2006 09/21/2006 11:5 9 AM CDT Grace Langley MD LAB - COPATH SPECIAL DIAG OR DERABLES Performing Organization Address City/State/ZIP Code Phon e Number COPATH documented in this encounter Visit Diagnoses Not on filedocumented in this encounter
--- OUTSIDE RECORDS SUMMARY | 2021-12-16 11:14 | XMS_ITS | Encounter Summary ---
:1955 Author Organization [facility] Address [facility] [place] [address] Care Team Providers Name Role Phone Unavailable Primary Care Provider Unavailable Reason for Visit Auth/Cert Specialty Diagnoses / Procedures Referred By Contact Refer red To Contact Surgery Diagnoses [place] B[place] Rh Periop Services Procedures EXCISE EXOSTOSIS TOE(S) [address] [place], [place] [address] Phone: Fax: Referral ID Status Reason Start Date Expiration Date Visits Requ ested Visits Authorized [id number] 1 1 Encounter Details Date Type Department Care Team Description 09/18/2016 Surgery [facility] Berta Blackwell, [place], Le ft foot [facility] [place] Per[facility] es Podiatry/Foot and [facility]unionectomy or [facility] [address] [facility] [place]at[place] [address] [place] exostose ctomy [id number] [facility] [address] [place], [place] [address] (Wo rk) Surgery Details Date/Time Status Location OR Service Patient Case Class Case Tr auma Class Type Case? 09/18/16 3:10 Posted OR OR 06 Podiatry Same Day PM Surgery Panel 1 Procedure LRB Anes Op Region Wound Class Commen ts Left foot tailor's Left MAC Foot I-Clean Left f oot tailor's bunionectomy or right fifth bunionectomy or right metatarsal partial fifth metatarsal partial exostosectomy exostosecto my Surgeon Surgeon Role Service Panel Berta Blackwell DPM, Podiatry/Foot and Ankle Surgery Primary Podiatry 1 Special Needs 5'4, 199# stated documented in this encounter Social History Tobacco [...] Sign Reading Time Taken Comments Blood Pressure 156/70 09/18/2016 4:15 PM CDT Pulse - - Temperature 36.8 ??C (98.2 ??F) 09/18/2016 4:15 PM CDT Respiratory Rate - - Oxygen Saturation 99% 09/18/2016 4:15 PM CDT Inhaled Oxygen Concentration - - [...] tablet by mouth 0 (THERA-VIT-M) tablet daily [place]-3 Fatty Acids Take 1,200 mg by mouth 0 (OMEGA 3 PO) daily order for Please dispense up to 3 pair s of knee high compression stockings at 20-30 mmHg. 3 Device 0 08/29/2016 DMEIndications: Left foot pain, [facility] Medical Equipment: bunion of left foot, Bursitis of foot, left 1. [facility] [address] [address] [facility] [phone] 2. [facility] [place] Medical Equipment [facility] -[address] [place] VITAMIN D, Take 1,000 Units by 0 [...] OF PROCEDURE: 09/18/2016 SURGEON: Berta Blackwell DPM RN NEW GRADUATE: Darren Shahid DPM PREOPERATIVE DIAGNOSES: 1. Left [...] for dressing change. BERTA BLACKWELL DPM MT: [id number] Name: SANDY LUCERO MRN: [id number] Account: [id number] : 1955 Procedure Date: 09/18/2016 Document: [id number] Brief Op Note - Berta Blackwell DPM, Podiatry/Foot and Ankle Surgery - 09/18/2016 3:49 PM CDT [facility] Brief Operative Note Pre-operative diagnosis: Tailors Bunion Post-operative diagnosis same Procedure: Procedure(s): Left 5th Metatrsal Exosectomy - Wound Class: I-Clean Surgeon(s): Surgeon(s) and Role: * Berta Blackwell DPM, Podiatry/Foot and Ankle Surgery - Primary Accelerator Systems Director: Tootie Shahid DPM Estimated blood loss: 2 [...] OF SURGERY: 09/18/2016 SURGEON: Berta Blackwell DPM RN NEW GRADUATE: Tootie Angulo DPM PREOPERATIVE DIAGNOSES: 1. Left [...] the results section. EXCISION, 09/18/2016 2:58 PM [place] Bunion EXOSTOSIS, TOE CDT Special Needs 5'4, [...] Component Value Ref Test Analysis Performed At [facility] ClassWallet Range Method Time Signature Copath Report Patient Name: SANDY LUCERO MR#: [id number] Specimen #: [id number] Collected: 09/18/2016 Received: 09/18/2016 Reported: 09/19/2016 14:38 [...] Microscopic examination is performed. CPT Codes: A: 08380-BT5 TESTING LAB LOCATION: [address] ??[id number] COLLECTION SITE: Client: [facility] Location: RHOR (R) Specimen (Source) Anatomical Collection [...] ORDERABLES documented in this encounter Visit Diagnoses Not on filedocumented in this encounter Administered Medications Inactive Administered Medications - up to 3 most recent administrations Medication Order MAR Action Action Date Dose Rate Site bupivacaine (MARCAINE) Given 09/18/2016 3:37 PM CDT 20 mLs preservative free injection 0.5% (PF) PRN, Starting on Sun09/18/16 at 1537, Intra-procedure fentaNYL Citrate (PF) (SUBLIMAZE) inject ion 25-50 [...] mg 0.3-0.5 mg, Intravenous, EVERY 10 MIN WV N, other, acute pain.?May administer if Respiratory [...] ONCE PRN, moderate to severe pain, Starting Sun09/18/16 at 1551, For 1 dose, One time prior to discharge. Maximum acetaminophen dose from all sources= 75 mg/kg/day not to exceed 4 grams, Post-procedure HYDROmorphone (PF) (DILAUDID) injection 0.3-0.5 mg 0.3-0.5 mg, Intravenous, EVERY 10 MIN WV N, Starting Sun09/18/16 at 1551, Until Sun09/18/16 [...] 2 MIN PRN , opioid reversal, Starting 09/18/16 at 1551, For 24 hours, For apnea [...] for take home use CONTINUOUS PRN, Starting Sun09/18/16 at 1551, Until Sun09/18/16 at [...]
--- OUTSIDE RECORDS SUMMARY | 2021-12-16 11:14 | XMS_ITS | Encounter Summary ---
:1955 Author Organization [place] Address [facility] [place] [address] Care Team Providers Name Role Phone Unavailable Primary Care Provider Unavailable Reason for Visit Reason Onset Date Comments Patient Request for Note/Letter 10/02/2016 Letter t o start work early Encounter Details Date Type Department Care Team Description 10/02/2016 [facility] Berta Blackwell DPM, [place] don[place] Request for Clinic [place] Podiatry/Foot and Note/Letter (Letter to [address] [facility] start work early) [facility] [address] [place] [address] [place], [place] [phone] (Wo rk) Social History Tobacco Use Types Packs/Day Years Used Date Former Smoker Cigarettes 1 5 Quit: 11/25/19 08 Alcohol Use Standard Drinks/Week Comments No 0 (1 standard drink = 0.6 oz pure alcoho l) Sex Assigned at Date Recorded Female 07/17/2021 8:09 AM CDT documented as of this encounter Miscellaneous Notes Telephone Encounter - Berta Blackwell DPM, Podiatry/Foot and Ankle Surgery - 10/02/2016 3:48 PM CDT Spoke with Sandy. Letter emailed. Berta Blackwell DPM Telephone Encounter - Yesica Hsu RN - 10/02/2016 3:27 PM CDT Pt had foot surgery 2 weeks ago, has work excuse letter till end of this week, restart date is 10/09. 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 - works at [employer] - works 9 hr days, 3 days a week - would like to start 3-4 hrs a day from this week, then full days from 10/09 - if approves, she would like a letter emailed to her at the id below - [email or web address] Please advise. Need to notify pt. Pt can be reached at [phone](OK to LM). 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
--- OUTSIDE RECORDS SUMMARY | 2021-12-16 11:14 | XMS_ITS | Encounter Summary ---
:1955 Author Organization [place] Address [address] [place] [address] Care Team Providers Name Role Phone Unavailable Primary Care Provider Unavailable Reason for Visit Reason Comments Foot Problems bump on the lateral side of left foot [id number] Encounter Details Date Type Department Care Team Description 08/29/2016 Office Visit [facility] Berta Blackwell, Left fo ot pain (Primary Dx); [facility] [place] D[place], Podiatry/Foot Tailor's bunion of left foot ; [address] [facility] Bursitis [place], [place] [address] [place] [address] [address] [address] [place], [place] [id number] (Wo rk) Social History Tobacco Use Types Packs/Day Years Used Date Former Smoker Quit: 11/25/19 08 Sex Assigned at Date Recorded Female 07/17/2021 8:09 AM CDT documented as of this encounter Last Filed Vital Signs Vital Sign Reading Time Taken Comments Blood Pressure 126/82 08/29/2016 8:26 AM CDT Pulse - - Temperature - - Respiratory Rate - - Oxygen Saturation - - Inhaled Oxygen Concentration - - Weight 92.1 kg (203 lb) 08/29/2016 8:26 AM CDT Height 157.5 cm (5' 2) 08/29/2016 8:26 AM CDT Body Mass Index 37.13 08/29/2016 8:26 AM CDT documented in this encounter Patient Instructions Patient InstructionsBerta Blackwell, RICHARDSONM, Podiatry/Foot and Ankle Surgery - 08/29/2016 8:30 AM CDT Images from the original note were not included. DR. [facility]IN[facility] SCHEDULE Sunday [facility] [address] [address] P: [phone] F: [phone] [facility] [address] [place] [address] P: [phone] F: [phone] [facility] [address] [place] [address] P: [phone] F: [phone] SUNDAY AM SUNDAY PM SURGERY [facility] [address] [place] [address] P: [phone] [facility] [address] [place] [address] [place] [address] P: [phone] F: [phone] Surgery [phone] Appointment [phone] General After Hours: Patient [phone] TAILOR'S BUNION A tailor's bunion is a bump at the base of the fifth toe. The bump is a prominence in the bone. The overlying skin, nerves, and other soft tissues become irritated as your shoe rubs on the bump. The bump may periodically look larger depending on the degree of local inflammation. You may see redness inthe area due to shoe pressure. A sensory nerve lies directly over the bump. Numbness, burning pain, and tingling may develop due to pressure on the nerve. Long-term nerve irritation may lead to permanent nerve damage. Most shoes are not shaped to accommodate a lump in this area of the foot. Shoes with stitched seams,rubber ridges and inflexible material will cause more irritation. Pointed dress shoes are definitelyproblematic. Avoidance of poor fitting shoes is the first line of treatment. Clinical examination and weight bearing x-rays are all it takes to diagnose this condition. Other treatment options include injection, professional stretching of the shoes, pads, and surgery. Tailor's bunion surgery involves removing part of the bone in order to reduce the bump. Oftentimes, a bone cut or osteotomy is performed which allows the surgeon to realign your bone. Pins or screws will be used to stabilize the bone cut during the healing process. Surgery is very effective but you will still need to be careful with shoe fit. A surgical incision is made in close proximity to the above mentioned Atul. The scar may be sensitive for this reason. Thefifth metatarsal bone is quite narrow and fragile. Surgical correction is somewhat limited by the local anatomy and shape of the bone. Pin or screw removal may be necessary at some point after the surgical site heals. POTENTIAL COMPLICATIONS OF FOOT & ANKLE SURGERY Undergoing a surgical procedure involves a certain amount of risk. Risk of complications vary depending on the complexity of the surgery and how you take care of the surgical area during the healing process. Complications can range from minor infection to . Some complications are temporary while others will be permanent. Your surgeon weighs the risk of complications vs the potential benefit of undergoing surgery. You need to consider your tolerance for unexpected problems as you decide whether to undergo surgery. Foot and Ankle surgery involves cutting skin, bone, ligaments, blood vessels and joints. these structures heal well but not without consequence. Any break to the skin can lead to infection. A deep infection involves bones or joints which can be devastating. Deep infection can lead to amputation or could spread to other parts of your body. Most infections are minor and easily treated with oral antibiotics. Infections are often times from bacteria already present on your skin. Proper care of the surgical site is an essential component of avoiding infection. Do not get the bandage wet and take proper care of external pins to avoid these problems. Joint stiffness is inherent to any foot or ankle surgery. Joint surgery is a major component of reconstructive foot and ankle procedures. The ligaments and tissues around the joint are cut, then later repaired. Scare tissue limits joint mobility. This can be permanent but generally improves over the course of one year. Surgery involves dissection around nerves. Visible nerves are moved out of the way while very small nerves are cut. Scar tissue develops around nerves and can lead to nerve pain, numbness, or neuromas.Nerve symptoms can be permanent. This can lead to numbness or sometimes hypersensitivity to touch and problems wearing shoes. Bones do not always heal after surgery. Poor healing after a bone cut or joint fusion can lead to anextended period of casting or repeat surgery. Electronic bone stimulators are sometimes used to stimulate poor healing of bone. Nonunion is when joint fusion does not take. This can occur as often as 10% of the time. Smoking doubles your risk of poor bone healing to 20%. Bone grafting is sometimes necessary during the original or subsequent surgery. Bone is sometimes taken from other parts of your body or freeze dried bone from a bone bank from a bone bank or syntheticbone material might be used. A scar is always present after foot and ankle surgery. The scar will be visible and could be sensitive. Some people develop excessive scarring, which cannot be controlled by the surgeon. Scars can be unsightly and can restrict joint mobility. Blood clots can develop in the calf after surgery. Foot and ankle surgery is a predisposing factor for blood clots. The blood clot could break and travel to your lung. This condition can lead to .Early warning signs could include calf swelling and pain, chest pain or shortness of breath. This isan emergency that requires immediate attention by a medical doctor! Surgery will not necessarily create a pain-free foot. Even normal feet hurt. Crooked toes, bunions, neuromas, flat feet and arthritis should all be considered permanent conditions. Ankle pain commonly requires multiple surgeries over a lifetime. Do not assume that having surgery will permanently fix your condition. You may need permanent alteration in shoes and activities to accommodate your foot andankle problem. Careful attention to post-operative recommendations will dramatically reduce your risk of complications. Proper dressing, wound care, elevation and rest will be essential to get the wound healed and minimize scarring. Strict attention to activity restrictions, such as non-weight bearing, or partial weight bearing is essential. Internal fixation devices may not not resist the stress of walking. Some select surgeries allow the patient to walk, however this should be very minimal. Despite these concerns, foot and ankle surgery leads to a high level of patient satisfaction. Your surgeon would not recommend surgery if he/she did not expect your foot to improve. Talk to your surgeon about any of the above issues. www.pedImage Searcher.Ploonge 1-129-XTVHXZA Body Mass Index (BMI) Many things can cause foot and ankle problems. Foot structure, activity level, foot mechanics and injuries are common causes of pain. One very important issue that often goes unmentioned, is body weight. Extra weight can cause increased stress on muscles, ligaments, bones and tendons. Sometimes just a few extra pounds is all it takesto put one over her/his threshold. Without reducing that stress, it can be difficult to alleviate pain. Some people are uncomfortable addressing this issue, but we feel it is important for you to think about it. As Foot & Ankle specialists, our job is addressing the lower extremity problem and possible causes. Regarding extra body weight, we encourage patients to discuss diet and weight management plans with their primary care doctors. It is this team approach that gives you the best opportunity for pain relief and getting you back on your feet. documented in this encounter Progress Notes Berta Blackwell DPM, Podiatry/Foot and Ankle Surgery - 08/29/2016 8:30 AM CDT PATIENT HISTORY: Sandy Sousa is a 61 year old female who presents to clinic for pain to the left side of the foot. Notes she tripped a few months ago and had pain to the foot. She was told to taper her toes which helped some and then she notes she developed a bump to the foot that presses in shoes and is sore. No pain in sandals or when there is no pressure on the area. Pain can be 10/10. Will burn and tingle. Worse in rigid shoes. Would like to know what is causing pain. Review of Systems: Patient denies fever, chills, rash, wound, stiffness, numbness, weakness, heart burn, blood in stool, chest pain with activity, calf pain when walking, shortness of breath with activity, chronic cough, easy bleeding/bruising, swelling of ankles, excessive thirst, fatigue, depression, anxiety. Patient admits to limping at times. PAST MEDICAL HISTORY: History reviewed. No pertinent past medical history. PAST SURGICAL HISTORY: History reviewed. No pertinent surgical history. MEDICATIONS: Current Outpatient Prescriptions: ??? multivitamin, therapeutic with minerals (MULTI-VITAMIN) TABS tablet, Take 1 tablet by mouth daily, Disp: , Rfl: ??? vitamin B complex with vitamin C (VITAMIN B COMPLEX) TABS tablet, Take 1 tablet by mouth daily, Disp: , Rfl: ??? VITAMIN D, CHOLECALCIFEROL, PO, Take by mouth daily, Disp: , Rfl: ??? order for DME, Please dispense up to 3 pairs of knee high compression stockings at 20-30 mmHg. Home Medical Equipment: 1. [facility] - [address] [place], [phone] 2. [place] [facility] -[address] [place] , Disp: 3 Device, Rfl: 0 ??? diclofenac (VOLTAREN) 1 % GEL topical gel, Apply 4 grams to knees or 2 grams to hands four timesdaily using enclosed dosing card., Disp: 100 g, Rfl: 1 ALLERGIES: No Known Allergies SOCIAL HISTORY: Social History Social History ??? Marital status: Spouse name: N/A ??? Number of children: N/A ??? Years of education: N/A Occupational History ??? Not on file. Social History Main Topics ??? Smoking status: Former Smoker Quit date: 11/25/2007 ??? Smokeless tobacco: Not on file ??? Alcohol use Not on file ??? Drug use: Not on file ??? Sexual activity: Not on file Other Topics Concern ??? Not on file Social History Narrative ??? No narrative on file FAMILY HISTORY: History reviewed. No pertinent family history. EXAM:Vitals: BP 126/82 Ht 5' 2 (1.575 m) Wt 203 lb (92.1 kg) BMI 37.13 kg/m2 BMI= Body mass index is 37.13 kg/(m^2). General appearance: Patient is alert and fully [...] is ambulatory without assistive device or brace. Firm immobile palpable mass to dorsal lateral left 5th metatarsal head. Pain on palpation. Radiographs: I have looked at and reviewed xrays personally. No fractures noted. There is some swelling noted to lateral 5th metatarsal head. ASSESSMENT: Left foot pain Tailor's bunion of left foot Bursitis of foot, left PLAN: Reviewed patient's chart in [facility]. Reviewed and discussed causes of capsulitis. Talked about how more pressure to occur to the joint. We talked about treatments such as padding, orthotics, injection, physical therapy, immobilization, MRI, and possible surgery to shorten metatarsal. Reviewed and discussed causes of tailors bunion with patient. Explained that it is in large part due to a patients foot type. Discussed treatment options with patient including orthotics, splints, pads, and shoe gear. We discussed that sometimes cortisone injections can help with the pain or physicaltherapy treatments such as ultrasound to help with pain but does not fix the problem. Discussed thatthis is normally a structural issue in the foot and if conservative therapy doesn't work, surgery isconsidered. Distal osteotomy versus spur removal. With a distal osteotomy procedure, patient is normally minimally weight bearing in a cam boot for 6 weeks. With spur removal, patient is normally minimal weight bearing in cam boot for 2-3 weeks. With any surgery, patient needs to take the first 2 weeks off work for icing and elevating and could possible due seated work only for the remaining 4 weeks after that. We discussed risks of surgery including infection, neuritis, non union, need for further s urgery. At this time, she is going to try compression socks for swelling and padding to foot. If pain continues, recommend surgically going in and debriding down some bone to decrease pressure to that area. Will call if she would like surgery. DIAGNOSIS: left foot tailors bunion PROCEDURES: 5th metatarsal exosectomy Site: Left Length of case: 60 min Murphy: No ANESTHESIA: Mac Popliteal Block: No Tourniquet: Ankle PATIENT POSITION: Supine Antibiotics: Give before surgery Same day EQUIPMENT: Mini c-arm, podiatry set, sagital saw with #138, Berta Young. LIBERTY Blackwell, Podiatry/Foot and Ankle Surgery Weight management plan: Patient was referred to their PCP to discuss a diet and exercise plan. CDT documented in this encounter Nursing Notes Arnel Jara - 08/29/2016 8:30 AM CDT Chief Complaint Patient presents with ??? Foot Problems bump on the lateral side of left foot [id number] Initial BP 126/82 Ht 5' 2 (1.575 m) Wt 203 lb (92.1 kg) BMI 37.13 kg/m2 Estimated body mass index is 37.13 kg/(m^2) as calculated from the following: Height as of this encounter: 5' 2 (1.575 m). Weight as of this encounter: 203 lb (92.1 kg). Medication Reconciliation: complete Arnel Jara MA documented in this encounter Plan of Treatment [...] in appear ance. ANIBAL HERRERA MD Berta Blackwell DPM, Podiatry/Foot and Ankle Surgery IMG DIAGNOSTIC IMAGING ORDERABLES documented in this encounter Visit Diagnoses Diagnosis Left foot pain - Primary Pain in limb Tailor's bunion of left foot Bursitis of foot, left Left foot pain Pain in limb documented in this encounter
--- OUTSIDE RECORDS SUMMARY | 2021-12-16 11:14 | XMS_ITS | Encounter Summary ---
:1955 Author Organization [facility] Address [address] [place] [address]. [place] [address] Care Team Providers Name Role Phone Unavailable Primary Care Provider Unavailable Encounter Details Date Type Department Care Team Description 09/20/2006 GI Procedure [facility] Kit López MD None [facility] [place] [facility] [address] [facility] [place], [place] [id number] [place] [address] Social History Tobacco Use Types Packs/Day Years Used Date Never Assessed Sex Assigned at Date Recorded Female 07/17/2021 8:09 AM CDT documented as of this encounter Plan of Treatment Not on filedocumented as of this encounter Procedures Procedure Name Priority Date/Time Associated Diagnosis Comme nts COLONOSCOPY Routine 09/20/2006 6:50 AM Results f or this CDT procedure are i n the results section . documented in this encounter Results COLONOSCOPY (09/20/2006 6:50 AM CDT) [facility] Method Time Signature COLONOSCOPY Endoscopy RADIOLOGY RESULTS Patient Name: Sandy Sousa ?Gender: F ? Procedure Date: 09/20/2006 6: 50 AM ? Date of : 1955 ?Age: 51 ? Admit Type: Outpatient ? Attending MD: Reid Langley ? Procedure: ?Colonoscopy Indications: ?Avg risk screening for malignant neoplasm in the colon, ?Personal history of suspected divert iculitis Providers: ?Reid Langley MD Referring MD: ?? Kit López MD Medicines: ?Fentanyl 100 mcg IV, Midazolam 1 mg IV Complications: ??No immediate complications Procedure: ?- Prior to the procedure, a History and P hysical was ?performed, and patient m edication allergies have been ?revi ewed. The patient's tolerance of previous anesthesia has ?been reviewed. ?- Th e risks and benefits of the procedure and the sedation ?options and risk s were discussed with the patient. All ?ques tions were answered and informed consent was obtained. ?- Pa tient identification and proposed procedure were verified ?prio r to the procedure by the physician and the nurse. The ?procedure was verified in the proced ure room. ?- Pre-procedure physical examination revealed no ?contraindications to sedation. ?- ASA Grade Assessment: P1 A n ormal healthy patient. ?- Th e heart rate, respiratory rate, oxygen saturations, blood ?pres sure, adequacy of pulmonary ventilation, and response to ?care were monitored throughout the p rocedure. ?Afte r obtaining informed consent, the colonoscope was passed ?unde r direct vision. Throughout the procedure, the patient's ?bloo d pressure, pulse, and oxygen saturations were monitored ?cont inuously. The [id number] #[id number] was introduced through ?the anus and advanced to the cecum, identified by appendiceal ?orif ice & IC valve. The colonoscopy was somewhat difficult ?due to multiple divertic stacey in the colon. The patient ?nevillekit rated the procedure well. The quality of the prep was ?exce llent. The total duration of the procedure was 18 minutes. ? Findings: ? Five benign appearing sessile fanny yps were found in the rectum, with one ? 3mm possible cecal polyp. The polyps were 1 to 4 mm i n size. ? Lacquerer polyps were removed with a hot forceps , others ? fulgurated. Resection and retrieval were complete.Multiple diverticula ? with thickened muscle were found in the sigmoid colon. Moderately severe ? diverticulosis. No sign of active diverticulitis. ? Impression: ? - Five claribel ign appearing 1 to 4 mm polyps in the rectum and in ?the cecum. Either resected or fulgur ated. ?- Diverticulosis of the sigmoid. Recommendation: - Discharge patient to home (ambulatory). ?- Re peat colonoscopy will depend on pathologic findings. ? Reid Langley MD Signed Date: 09/20/2006 7:49 AM Number of Addenda: 0 I was physically present for the entire viewing portion of t he exam. Note generated on 09/20/2006 6:50 AM COLONOSCOPY RADIOLOGY RESULTS Specimen (Source) Anatomical Collection Method Collection Time Re ceived Time Location / / Volume Laterality 09/20/2006 6:50 AM CDT E Abel López MD PROCEDURES Performing Organization Address City/State/ZIP Code Phon e Number RADIOLOGY RESULTS documented in this encounter Visit Diagnoses Not on filedocumented in this encounter
--- OUTSIDE RECORDS SUMMARY | 2021-12-16 11:14 | XMS_ITS | Encounter Summary ---
:1955 Author Organization [place] Address [address] [place] [address]. [place] [address] Care Team Providers Name Role Phone Unavailable Primary Care Provider Unavailable Reason for Visit Reason Onset Date Comments Schedule Surgery 09/08/2016 Encounter Details Date Type Department Care Team Description 09/08/2016 Telephone [facility] Berta Blackwell, RICHARDSON M, Schedule Surgery [place] [facility] Podiatry/Foot and [address] [facility] Ankle Surgery [address] [place] [address] [address] [place], [place] [address] (Wo rk) Social History Tobacco Use Types Packs/Day Years Used Date Former Smoker Quit: 11/25/19 08 Sex Assigned at Date Recorded Female 07/17/2021 8:09 AM CDT documented as of this encounter Miscellaneous Notes Telephone Encounter - Surekha Lynn - 09/08/2016 4:04 PM CDT Scheduled surgery for 5th metatarsal exosectomy on 09/18/[address] Blackwell @ [facility] @ 3:20. Patient will make her own PRE OP as soon as possible. Surgery education packet provided to patient. documented in this encounter Plan of Treatment Not on filedocumented as of this encounter Visit Diagnoses Not on filedocumented in this encounter
--- OUTSIDE RECORDS SUMMARY | 2021-12-16 11:14 | XMS_ITS | Encounter Summary ---
:1955 Author Organization [place] Address Critical access hospital0 [facility] [place] [address] Care Team Providers Name Role Phone Unavailable Primary Care Provider Unavailable Reason for Visit Auth/Cert Specialty Diagnoses / Procedures Referred By Contact Refer red To Contact Surgery Diagnoses Misti Ocamponathan Rh Periop Services Procedures EXCISE EXOSTOSIS TOE(S) [address], [place] [address] Phone: Fax: Referral ID Status Reason Start Date Expiration Date Visits Requ ested Visits Authorized [id number] 1 1 Encounter Details Date Type Department Care Team Description 09/18/[address] [facility] Satish Winter, DO [facility] ANESTHESIA [address] [place], [place] [address] PeriOp Services Amador Correia, [employer] HOME HEALTH BILLING SPECIALIST [address] [place] [address] [address] [place] [address] Anesthesia Record Procedure Summary Procedure Name Responsible Anesthesia Start Anesthesia Stop Anesthesiologist Time Time Left foot tailor'Satish Khanna DO 09/18/16 1506 09/18/16 1552 bunionectomy or right fifth metatarsal partial exostosectomy (Left Foot) Events Date Time Event Comment 09/18/2016 1506 An Start 1509 An Start Data 1509 MD Present 1525 An Tourn Inflated 250mmHg 1533 MD Present 1548 an stop data 1549 MD Present 1552 An Stop Electronically s igned by Balwinder Acosta on September 18, 2016 3: 52 PM Name Total midazolam 1mg/mL 2 mg propofol infusion (mcg/kg/min) 209.76 mg glycopyrrolate 0.2mg/mL 0.2 mg ondansetron 2mg/mL 4 mg dexamethasone 4 mg/mL 4 mg ceFAZolin sodium-dextrose (ANCEF) infusion 2 g 2 g ketamine 10 mg/mL 50 mg lactated ringers infusion 350 mL Agents Name NO HELIOX O2 N2O Air Exp Sevoflurane Exp Isoflurane Exp Desflurane Exp N2O O2 Delivery Device Ins Sevoflurane Ins Isoflurane Ins Desflurane O2 Auxiliary Blood No blood administrations on file. Lines, Drains, and Airways Type Details Placement Removal Peripheral IV 09/18/16; 1417; 18 G; 09/18/16 1417 by 09/18/16 1651 by Left; Lower forearm; Abel Roy MD Meenakshi wallace RN Alcohol; Injectable; Tolerated well documented in this encounter Social History Tobacco Use Types Packs/Day Years Used Date Former Smoker Cigarettes 1 5 Quit: 11/25/19 08 Alcohol Use Standard Drinks/Week Comments No 0 (1 standard drink = 0.6 oz pure alcoho l) Sex Assigned at Date Recorded Female 07/17/2021 8:09 AM CDT documented as of this encounter OR Notes Anesthesia Postprocedure Evaluation - Satish Winter DO - 09/18/2016 3:54 PM CDT Patient: Sandy Pinto Lars Procedure(s): Left 5th Metatrsal Exosectomy - Wound Class: I-Clean Diagnosis:Misti Bunnathan Diagnosis Additional Information: Janiya Bunion Left 5th Metatrsal Anesthesia Type: MAC Note: Anesthesia Post Evaluation Patient location during evaluation: PACU Patient participation: Able to fully participate in evaluation Level of consciousness: awake Pain management: adequate Airway patency: patent Cardiovascular status: acceptable Respiratory status: acceptable Hydration status: acceptable PONV: controlled Anesthetic complications: None Last vitals: Vitals: 09/18/16 1406 BP: (!) 176/93 Temp: 97.5 ??F (36.4 ??C) Electronically Signed By: Satish Winter DO September 18, 2016 3:54 PM Anesthesia Preprocedure Evaluation - Abel Roy MD - 09/18/2016 2:14 PM CDT Anesthesia Evaluation . ROS/MED HX ENT/Pulmonary: (+)sleep apnea, tobacco use, Past use , . . (-) asthma and Other pulmonary disease Neurologic: - neg neurologic ROS Cardiovascular: - neg cardiovascular ROS METS/Exercise Tolerance: Hematologic: - neg hematologic ROS Musculoskeletal: (+) , , other musculoskeletal- Bunion GI/Hepatic: - neg GI/hepatic ROS Renal/Genitourinary: - ROS Renal section negative Endo: (+) Obesity, . (-) Type I DM, Type II DM and chronic steroid usage Psychiatric: - neg psychiatric ROS Infectious Disease: - neg infectious disease ROS Malignancy: - no malignancy Other: - neg other ROS Physical Exam Airway Mallampati: II TM distance: >3 FB Neck ROM: full Dental Cardiovascular Rhythm and rate: regular and normal (-) no murmur Pulmonary breath sounds clear to auscultation Other findings: No lab results found. No lab results found. Anesthesia Plan History & Physical Review History and physical reviewed and following examination; no interval change. ASA Status: 2 . NPO Status: > 8 hours Plan for MAC Reason for MAC: Deep or markedly invasive procedure (G8) PONV prophylaxis: Ondansetron (or other 5HT-3) and Dexamethasone or Solumedrol Postoperative Care Postoperative pain management: IV analgesics and Oral pain medications. Consents Anesthetic plan, risks, benefits and alternatives discussed with: Patient.. . documented in this encounter Miscellaneous Notes Anesthesia Care Transfer Note - Balwinder Acosta APRN CRNA - 09/18/2016 3:51 PM CDT Patient: Sandy Sousa Procedure(s): Left 5th Metatrsal Exosectomy - Wound Class: I-Clean Diagnosis: [place] Bunion Diagnosis Additional Information: No value filed. Anesthesia Type: MAC Note: Airway :Room Air Patient transferred to:[facility] Comments: Pt awake SV VSS, prepare to transfer to PACU. Report to PACU, VSS. Transfer care Vitals: (Last set prior to Anesthesia Care Transfer) HOME HEALTH BILLING SPECIALIST VITALS 09/18/2016 1518 - 09/18/2016 1551 09/18/2016 NIBP: 129/80 NIBP Mean: 102 Electronically Signed By: Balwinder Acosta APRN CRNA September 18, 2016 3:51 PM documented in this encounter Plan of Treatment Not on filedocumented as of this encounter Visit Diagnoses Not on filedocumented in this encounter Administered Medications Inactive Administered Medications - up to 3 most recent administrations Medication Order MAR Action Action Date Dose Rate Site ceFAZolin sodium-dextrose (ANCEF) Given 09/18/2016 3:07 PM CDT 2 g infusion 2 g Routine, 2 g, Intravenous, PRE-OP/PRE-PROCEDURE, Starting on Sun09/18/16 at 1357, For 1 dose, Give first dose within 1 hour PRIOR to incision. If patient weight is greater than or equal to 120 kg increase dose to 3 g., Indications: Perioperative Pharmacoprophylaxis, Pre-procedure dexamethasone (DECADRON) injection Given 09/18/2016 3:18 PM CDT 4 mg Intravenous, PRN, Administer over 1-4 Minutes, Starting on Sun09/18/16 at 1518, Anesthesia Intra-op glycopyrrolate (ROBINUL) injection Given 09/18/2016 3:20 PM CDT 0.2 mg PRN, Starting on Sun09/18/16 at 1520, Anesthesia Intra-op ketamine (KETALAR) injection Given 09/18/2016 3:09 PM CDT 50 mg PRN, Administer over 2-3 Minutes, Starting on Sun09/18/16 at 1509, Anesthesia Intra-op lactated ringers infusion New Bag 09/18/2016 3:07 PM CDT at 25 mL/hr, Intravenous, CONTINUOUS, IF patient NOT on dialysis., Pre-procedure, Starting on Sun09/18/16 at 1430, Until Sun09/18/16 at 1550 midazolam (VERSED) injection Given 09/18/2016 3:07 PM CDT 2 mg PRN, anxiety, Starting on Sun09/18/16 at 1507, Anesthesia Intra-op ondansetron (ZOFRAN) injection Given 09/18/2016 3:18 PM CDT 4 mg PRN, nausea, vomiting, Administer over 2-5 Minutes, Starting on Sun09/18/16 at 1518, Anesthesia Intra-op propofol (DIPRIVAN) infusion Rate/Dose 09/18/2016 3:19 75 mcg/kg/min 41 mL/hr Intravenous, CONTINUOUS PRN, Change PM CDT Starting on Sun09/18/16 at 1511, Anesthesia Intra-op Rate/Dose Change 09/18/2016 3:17 PM CDT 100 mcg/kg/min 54.7 mL/hr Rate/Dose Change 09/18/2016 3:14 PM CDT 150 mcg/kg/min 82.1 mL/hr documented in this encounter
--- OUTSIDE RECORDS SUMMARY | 2021-12-16 11:14 | XMS_ITS | Encounter Summary ---
:1955 Author Organization [place] Address [address] [place] [address]. [place] [address] Care Team Providers Name Role Phone Unavailable Primary Care Provider Unavailable Reason for Visit Reason Onset Date Comments Medication Question 08/29/2016 pharmacist - voltare n gel Sig Encounter Details Date Type Department Care Team Description 08/29/2016 Telephone [facility] Berta Blackwell, RICHARDSONM, Me dication Question Clinic [place] [facility]/Foot and (pharmacist - rylanaren [address] [facility] Ankle Surgery gel Sig) [place] [address] [place] [address] [place] [address] [place], [place] [address] (Wo rk) Social History Tobacco Use Types Packs/Day Years Used Date Former Smoker Quit: 11/25/19 08 Sex Assigned at Date Recorded Female 07/17/2021 8:09 AM CDT documented as of this encounter Miscellaneous Notes Telephone Encounter - Aman Carter RN - 08/29/2016 8:59 AM CDT [facility] pharmacist calls re voltaren gel. Which set of directions? Informed intended Sig in Notes to Pharmacy. diclofenac (VOLTAREN) 1 % GEL topical gel 100 g 1 08/29/2016 -- Sig: Class: E-Prescribe Notes to Pharmacy: Apply ??2 grams to foot four times daily as needed for pain using enclosed dosingcard. Aman Carter RN documented in this encounter Plan of Treatment Not on filedocumented as of this encounter Visit Diagnoses Not on filedocumented in this encounter
--- OUTSIDE RECORDS SUMMARY | 2021-12-16 11:14 | XMS_ITS ---
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 Problem Cystocele, N81.11 Active 150897178 midline Problem Vaginal atrophy N95.2 Active 2971 39172 ALLERGIES No Known Allergies ENCOUNTERS Encounter Location Date Diagnosis [address] Jun, [address] [address] May, [address] [address] [facility] [address] Apr, [place], [place] [phone] [facility] [address] Apr, [place] [phone] [facility] [address] Mar, [place] [phone] [address] Mar, Pelvi c floor dysfunction [address] N81.84 [place] [address] female N94.10 [facility] [address] Nov, [place], [place] [phone] [facility] [address] Apr, Encou nter for [address] [place], [place] Z48.[place] [address] ; Encounter for weight loss counseling Z71.3 and Cystocele, midli ne N81.11 [facility] [address] [place] [address] Dec, [address] [address] [facility] [address] Dec, Expos ed surgical suture as [address] [place], [place] [address] initial encounte r T81.89XA and Cystocele, m idline N81.11 [facility] [place] [address] Oct, Encou nter for [address] [place], postoperat marie care Z48.89 [place] [address] [facility] [place] [address] Sep, Encou nter for [address] [place], [place] Z48.89 [place] [address] [facility] [address] Sep, [place] [address] [facility] [address] Sep, Vag inal vault prolapse [place], [place] N81.9 ; Cystocel e, midline [address] N81.11 and Recto swapnil N81.6 [facility] [address] Jun, [address] [address] [facility] [place] [address] Jun, Vagin al vault prolapse [address], N81.9 [place] [address] midline N81.11 [facility] [address] May, [place], [place] [phone] [facility] [address] May, [place], [place] [phone] [facility] [address] [place] [address] May, Acute vaginitis N76.0 [address] [place], [place] Vaginal a trophy N95.2 [address] [facility] [address] [place] [address] May, Vagin itis N76.0 [address] [place], [place] Screening for STD [address] (sexually transm itted disease) Z11.3 [facility] [address] May, [place], [place] [phone] [facility] [address] Apr, Encou nter for fitting and [address] [place], [place] [address] Z46.89 and Vagin al vault prolapse N81.9 IMMUNIZATIONS No Known Immunizations SOCIAL HISTORY Qualifiers Date Never Smoker REASON FOR REFERRAL Reason organ prolapse (10/31) Referring Provider First Name Brigid Referring Provider Last Name Afsaneh Case Referring Provider Specialty Family Practice [facility] Referred Provider Alcira Tomlinson Referred Address [address] [place] [address],[address],[place], [place],[address] Referred Provider Specialty Lock Installer and gynecolog ist Reason [facility] PT 01/08 [facility] Referring Provider First Name Alcira Referring Provider Last Name Bushra Referring Provider Specialty Lock Installer and gynecolo gist Referring Provider Referring Provider email [email or web address] Referred Provider Specialty Physical Therapist FUNCTIONAL STATUS PLAN OF CARE Activity Details Referral organ prolapse (10/31), Alcira Tomlinson, [address] [place] [address], [place], [address], Referral [facility] PT 01/08 VITAL SIGNS Weight 211.8 lbs 2021-04-07 Blood pressure systolic 126 mm Hg 2021-04-07 Blood pressure diastolic 68 mm Hg 2021-04-07 MEDICATIONS Medication Instructions Dosage Frequency Start End Duration Statu s Date Date hydroCHLOROthiazide Acti ve Vitamin D Active NexIUM 24HR 20 MG Orally Once a 1 capsule 24h 30 day (s) Active day Estrace 0.1 MG/GM Vaginal twice 1 gram May, 90 days Not-Jimmie weekly after 2019 ing using daily for 2 weeks Glucosamine Chond MSM as Ac tive Formula - directed Aspir-81 Active Multivitamin Adult Activ e Fish Oil Active PROCEDURES Procedure Date Ordered Result Body Site REPAIR OF VAGINAL PROLAPSE October 09, 2019 REPAIR OF VAGINA October 09, 2019 [facility] OR[facility] SITE FACILITY FEE July 10, 2019 INSERT PESSARY/OTHER DEVICE May 22, 2019 LINDA, DNA, DIR PROBE May 28, 2019 MCDANIEL VAG, DNA, DIR PROBE May 28, 2019 TRICHOMONAS VAGIN, DIR PROBE May 28, 2019 INSERT BLADDER CATHETER May 22, 2019 CYSTOSCOPY October 09, 2019 PESSARY NON RUBBER ANY TYPE May 22, 2019 RESULTS Name Result Date Reference Range BV/VAGINITIS PANEL DNA PROBE 2019-05-28 LINDA: NOT DETECTED NOT DETECTED GARDNERELLA: NOT DETECTED NOT DETECTED TRICHOMONAS: NOT DETECTED NOT DETECTED REASON FOR VISIT Insurance Providers [facility] Health Member Patient Patient Patient Patient Patient Subscriber Subscriber Subscriber Group Insurance Plan Plan Plan Plan ID Relationship Address Phone Name Date of ID Name Date of No Type Insurance Insurance Insurance Coverage to Subscriber Address Phone Name Dates [employer] [address] [employer] [address] [place] [id number] thCare - [address] [place] th[place] - [place] [address] [place] t (Ins t (Ins Bill) Bill) HealthPart [address] HealthPart self [place] [id number] [facility] [id number] MEDICAL (GENERAL) HISTORY Type Description Date Medical History HTN Medical History Gall Badder disease Medical History Chicken Pox Medical History Vaginal vault prolapse Surgical History TONY 1975 Surgical History Left oophrectomy 1977 Surgical History Right oophrectomy 1979 Surgical History Lysis of adhesions Surgical History vaginal prolapse repair SSLS, A&P, perin eorrhaphy 10/09/2019 Surgical History Strip Left Leg veins 04/2019 Surgical History Left Thumb Surgery 10/2020
--- OUTSIDE RECORDS SUMMARY | 2021-12-16 11:14 | XMS_ITS | Encounter Summary ---
:1955 Author Organization [place] Address [address] [place] [address] Care Team Providers Name Role Phone Unavailable Primary Care Provider Unavailable Reason for Visit Reason Comments Surgical Followup Left foot tailor's bunionect ariana or right fifth metatarsal partial exostosectomy DOS 09/18/16 Encounter Details Date Type Department Care Team Description 09/29/2016 Office Visit [facility] Berta Blackwell, [facility], Podiatry/Foot (Prima ry Dx) Podiatry and Ankle Surgery [address] [place] [address] [place], [place] [phone] (Wo rk) Social History Tobacco Use Types Packs/Day Years Used Date Former Smoker Cigarettes 1 5 Quit: 11/25/19 08 Alcohol Use Standard Drinks/Week Comments No 0 (1 standard drink = 0.6 oz pure alcoho l) Sex Assigned at Date Recorded Female 07/17/2021 8:09 AM CDT documented as of this encounter Last Filed Vital Signs Vital Sign Reading Time Taken Comments Blood Pressure 132/82 09/29/2016 3:30 PM CDT Pulse - - Temperature - - Respiratory Rate - - Oxygen Saturation - - Inhaled Oxygen - - Concentration Weight 91.2 kg (201 lb) 09/29/2016 3:30 PM pt in crutch es post op CDT Height 162.6 cm (5' 4) 09/29/2016 3:30 PM CDT Body Mass Index 34.5 09/29/2016 3:30 PM CDT documented in this encounter Patient Instructions Patient InstructionsBerta Blackwell DPM, Podiatry/Foot and Ankle Surgery - 09/29/2016 3:[address] [facility] LOCATIONS: SUNDAY AM - [place] SUNDAY - [place] [address] [address] [place] [address] [place] [address] / FX [phone] / FX [phone] SUNDAY - Sunday AM - [facility] [address] [place] [address] [place] [address] Maria FernandaSTEPHEN [address] / FX [phone] SUNDAY PM - [place] SCHEDULE SURGERY: [phone] BILLING QUESTIONS: [phone] [place] [address] AFTER HOURS: [phone] / FX [phone] APPOINTMENTS: [phone] SCAR CARE PROTOCOL Scarring is an unfortunate but unavoidable part of surgery. Every person scars differently and thereis no way to predict how an individual's final scar will look. Now that the sutures have been removed one can begin taking some steps to help minimize the appearance of scarring. WOUND HEALING As soon as the skin is incised during surgery, the body is taking steps to prepare for healing. After about 3 days, the body has sent cells to the incision to begin the healing process. These cells, called fibroblasts, make collagen, a protein in the skin that helps provide strength. Once the skin hasbeen sufficiently strengthened, the sutures are removed. Over the next year, the body synthesizes new collagen and breaks down old collagen to help achieve a strong scar that allows the foot/ankle to function appropriately. This is where patients can help the appearance of the scar, as it will manager exchange the next year. STEPS 1. Do not expose the scar to the sun for 1 year. 2. Any sun exposure may permanently darken the appearance of the scar. 3. Wear shoes/socks or cover your scar with zinc oxide. 4. Massage the scar 2-3 times per day. -Massage the entire length of the scar with gentle to moderate pressure. -Pressure can help flatten the scar. 5. Lotion/Vitamin E helps keep the tissue soft. 6. Try over the counter scar products such as Mederma or Scar Zone. -These are available at any pharmacy without a prescription. -Patients must use these for extended periods of time (6-12 months) to see a difference. Body Mass Index (BMI) Many things can [...] feel it is important for you to thinkabout it. As Foot & Ankle specialists, our job is addressing the lower extremity problem and possible causes. Regarding extra body weight, we encourage patients to discuss diet and weight management plans with their primary care doctors. It is this team approach that gives you the best opportunityfor pain relief and getting you back on your feet. documented in this encounter Progress Notes Berta Blackwell DPM, Podiatry/Foot and Ankle Surgery - 09/29/2016 3:30 PM CDT Podiatry / Foot and Ankle Surgery Progress Note September 29, 2016 Subject: Patient was seen for follow up on left foot surgery. Note minimal pain. Denies fever, chills,nausa. Has been in post op shoe. Objective: Vitals: BP 132/82 Ht 5' 4 (1.626 m) Wt 201 lb (91.2 kg) BMI 34.5 kg/m2 BMI= Body mass index is 34.5 kg/(m^2). General: Patient is alert and orientated. NAD Dressing c/d/i. Sutures intact. Incision well healed. No redness, dehiscence or signs of infection noted. Assessment: Post-operative state Plan: At this time, sutures were removed. Patient can get foot wet. Can go back to regular shoes. Will follow up as needed. Berta Blackwell DPM, Podiatry/Foot and Ankle Surgery Weight management plan: Patient was referred to their PCP to discuss a diet and exercise plan. CDT documented in this encounter Nursing Notes Arnel Jara - 09/29/2016 3:30 PM CDT Chief Complaint Patient presents with ??? Surgical Followup Left foot tailor's bunionectomy or right fifth metatarsal partial exostosectomy DOS 09/18/16 Initial BP 132/82 Ht 5' 4 (1.626 m) Wt 201 lb (91.2 kg) BMI 34.5 kg/m2 Estimated body mass index is 34.5 kg/(m^2) as calculated from the following: Height as of this encounter: 5' 4 (1.626 m). Weight as of this encounter: 201 lb (91.2 kg). Medication Reconciliation: complete Arnel Jara MA documented in this encounter Plan of Treatment Not on filedocumented as of this encounter Visit Diagnoses Diagnosis Post-operative state - Primary Other postprocedural status documented in this encounter
== END 2021-12-16 11:10 | disposition home or self-care (01) ==
LOC: OP CLINIC 11:10
PROVIDERS: PCP Internal Medicine; Visit Provider Internal Medicine
DX: Z12.11 Encounter for screening for malignant neoplasm of colon (principal); K63.5 Polyp of colon; K57.30 Diverticulosis of large intestine without perforation or abscess without bleeding; Z86.010 Personal history of colon polyps
CPT/HCPCS: 45380; J2250; J3010

== ENCOUNTER 2022-04-20 08:58 | Outpatient (CLI) | payer MEDICARE, SELFPAY ==
--- OUTSIDE RECORDS SUMMARY | 2022-04-20 09:01 | XMS_ITS ---
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 [address] Apr, [place], [place] [phone] [facility] [address] Apr, [place], [place] [phone] [facility] [address] Mar, [place], [place] [phone] [address] Mar, Pelvi c floor dysfunction [address] N81.84 [place] [address] female N94.10 [facility] [address] Nov, [place], [place] [phone] [facility] [address] Apr, Encou nter for [place] [address] [place], [place]48[place] [address] ; Encounter for weight loss counseling Z71.3 and Cystocele, midli ne N81.11 [facility] [address] [place] [address] Dec, [address] [address] [facility] [address] Dec, Expos ed surgical suture as [place] [address] [place], [place] [address] initial encounte r T81.89XA and Cystocele, m idline N81.11 [facility] [place] [address] Oct, Encou nter for [place] [address] [place], postoper[place] Z48.89 [place] [address] [facility] [place] [address] Sep, Encou nter for [place] [address] [place], [place] Z48.89 [place] [address] [facility] [address] Sep, [place] [address] [facility] [address] Sep, Vag inal vault prolapse [place], [place] N81.9 ; Cystocel e, midline [address] N81.11 and Recto swapnil N81.6 [facility] [address] Jun, [address] [address] [facility] [place] [address] Jun, Vagin al vault prolapse [address], N81.9 [place] [address] midline N81.11 [facility] [address] May, [place], [place] [phone] [facility] [address] May, [place], [place] [phone] [facility] [address] [place] [address] May, Acute vaginitis N76.0 and [place] [address] [place], [place] Vaginal a trophy N95.2 [address] [facility] [address] [place] [address] May, Vagin itis N76.0 and [place] [address] [place], [place] Screening for STD [address] (sexually transm itted disease) Z11.[address] [facility] [address] May, [place], [place] [phone] [facility] [address] Apr, Encou nter for fitting and [place] [address] [place], [place] [address] Z46.89 and Vagin al vault prolapse N81.9 IMMUNIZATIONS No Known Immunizations SOCIAL HISTORY Qualifiers Date Never Smoker REASON FOR REFERRAL Reason organ prolapse (10/31) Referring Provider First Name Brigid Referring Provider Last Name Afsaneh Case Referring Provider Specialty Family Practice [facility] Referred Provider Alcira Tomlinson Referred Address [address] [place] [address],[address],[place], [place],[address] Referred Provider Specialty Art Therapy Certified Supervisor and gynecolog ist Reason [facility] PT 01/08 [facility] Referring Provider First Name Alcira Referring Provider Last Name Bushra Referring Provider Specialty Art Therapy Certified Supervisor and gynecolo gist Referring Provider Referring Provider email [email or web address] Referred Provider Specialty Physical Therapist FUNCTIONAL STATUS PLAN OF CARE Activity Details Referral organ prolapse (10/31), Alcira Tomlinson, [address] [place] [address], [place], [address], Referral [facility] PT 01/08 VITAL SIGNS Weight 211.8 [...] PROCEDURES Procedure Date Ordered Result Body Site INSERT PESSARY/OTHER DEVICE May 22, 2019 LINDA, DNA, DIR PROBE May 28, 2019 REPAIR OF VAGINA October 09, 2019 MCDANIEL VAG, DNA, DIR PROBE May 28, 2019 REPAIR OF VAGINAL PROLAPSE October 09, 2019 TRICHOMONAS VAGIN, DIR PROBE May 28, 2019 INSERT BLADDER CATHETER May 22, 2019 [facility] S[facility] FAC[facility] FEE July 10, 2019 PESSARY NON RUBBER ANY TYPE May 22, 2019 CYSTOSCOPY October 09, 2019 RESULTS Name Result Date Reference Range BV/VAGINITIS PANEL DNA PROBE 2019-05-28 LINDA: NOT DETECTED NOT DETECTED GARDNERELLA: NOT DETECTED NOT DETECTED TRICHOMONAS: NOT DETECTED NOT DETECTED REASON FOR VISIT Insurance Providers [facility] Member Patient Patient Patient Patient Patient Subscriber Subscriber Subscriber Group Insurance Plan Plan Plan Plan ID Relationship Address Phone Name Date of ID Name Date of No Type Insurance Insurance Insurance Coverage to Subscriber Address Phone Name Dates HealthPart [address] HealthPart self [place] [id number] [facility] [id number] [employer] [address] [employer] self [place] [id number] thCare - [address] [place] th[place] - [place] [address] Replacemen t (Ins t (Ins Bill) Bill) MEDICAL (GENERAL) HISTORY Type Description Date Medical [...]
--- NOTE | 2022-04-20 09:15 | CRLHL7_ITS ---
For Patients: As a result of the Century Cures Act, medical imaging exams and procedure reports are released immediately into your electronic medical record. You may view this report before your referring provider. If you have questions, please contact your health care provider. BILATERAL SCREENING MAMMOGRAM WITH COMPUTER-AIDED DETECTION AND TOMOSYNTHESIS TECHNIQUE: CC and MLO views were obtained. These mammographic images have been obtained using full-field digital technique. These mammographic images were interpreted with the benefit of computer-aided detection. Breast Tomosynthesis was used in this interpretation. COMPARISON FILM: 03/30/21, 03/22/20, 03/20/19. FINDINGS: There are scattered areas of fibroglandular density IMPRESSION: There is no radiographic evidence for malignancy. ASSESSMENT: BI-RADS Category 1: Negative RECOMMENDATION: Routine screening mammogram in 1 year. A lay language report of this examination will be provided to the patient. Abel Ac M.D. Diagnostic/Nuclear Medicine Radiologist [email or web address] MARTINE/Dictated by: Abel Ac MD @ 04/20/2022 10:25:00 AM (Electronically Signed)
== END 2022-04-20 08:59 | disposition home or self-care (01) ==
PROVIDERS: PCP Internal Medicine; Visit Provider Internal Medicine
DX: Z12.31 Encounter for screening mammogram for malignant neoplasm of breast (principal)
CPT/HCPCS: 77063; 77067

== ENCOUNTER 2022-04-28 08:02 | Outpatient (CLI) | payer MEDICARE, SELFPAY ==
--- OUTSIDE RECORDS SUMMARY | 2022-04-28 08:05 | XMS_ITS ---
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 144904 009 prolapse Problem Cystocele, N81.11 Active 171465541 midline Problem Vaginal atrophy N95.2 Active 2971 55576 ALLERGIES No Known Allergies ENCOUNTERS Encounter Location Date Diagnosis [address] Jun, [address] [address] May, [address] [address] [facility] [address] Apr, [place], [place] [phone] [facility] [address] Apr, [place], [place] [phone] [facility] [address] Mar, [place], [place] [phone] [address] Mar, Pelvi c floor dysfunction [address] N81.84 [place] [address] female N94.10 [facility] [address] Nov, [place], [place] [phone] [facility] [address] Apr, Encou nter for [place] [address] [place], [place]oper[place] Z48.89 [place] [address] ; Encounter for weight loss counseling Z71.3 and Cystocele, midli ne N81.11 [facility] [address] [place] [address] Dec, [address] [address] [facility] [address] Dec, Expos ed surgical suture as [place] [address] [place], [place] [address] initial encounte r T81.89XA and Cystocele, m idline N81.11 [facility] [place] [address] Oct, Encou nter for [place] [address] [place], postoper[place] marie care Z48.89 [place] [address] [facility] [place] [address] Sep, Encou nter for [place] [address] [place], [place]oper[place] Z48.89 [place] [address] [facility] [address] Sep, [place] [address] [facility] [address] Sep, Vag inal vault prolapse [place], [place] N81.9 ; Cystocel e, midline [address] N81.11 and Recto swapnil N81.6 [facility] [address] Jun, [address] [address] [facility] [place] [address] Jun, Vagin al vault prolapse [address], N81.9 [place] [address] midline N81.11 [facility] [address] May, [place], [place] [phone] [facility] [address] May, [place], [place] [phone] [facility] [address] [place] [address] May, Acute vaginitis N76.0 and [place] [address] [place], [place] Vaginal a trophy N95.2 [address] [facility] [address] [place] [address] May, Vagin itis N76.0 [address] [place] [address] [place], [place] Screening [place] STD [address] (sexually transm itted disease) Z11.3 [facility] [address] May, [place], [place] [phone] [facility] [address] Apr, Encou nter for fitting and [place] [address] [place], [place] [address] Z46.89 and Vagin al vault prolapse N81.9 IMMUNIZATIONS No Known Immunizations SOCIAL HISTORY Qualifiers Date Never Smoker REASON FOR REFERRAL Reason organ prolapse (10/31) Referring Provider First Name Brigid Referring Provider Last Name Afsaneh Case Referring Provider Specialty Family Practice [facility] Referred Provider Alcira Tomlinson Referred Address [address] [place] [address],[address],[place], [place],[address] Referred Provider Specialty Heat Treating Operator and gynecolog ist Reason [facility] PT 01/08 [facility] Referring Provider First Name Alcira Referring Provider Last Name Bushra Referring Provider Specialty Heat Treating Operator and gynecolo gist Referring Provider Referring Provider email [email or web address] Referred Provider Specialty Physical Therapist FUNCTIONAL STATUS PLAN OF CARE Activity Details Referral organ prolapse (10/31), Alcira Tomlinson, [address] [place] [address], [place], [address], Referral [facility] PT 01/08 VITAL SIGNS Weight 211.8 lbs [...] REPAIR OF VAGINAL PROLAPSE October 09, 2019 MCDANIEL VAG, DNA, DIR PROBE May 28, 2019 REPAIR OF VAGINA October 09, 2019 TRICHOMONAS VAGIN, DIR PROBE May 28, 2019 [facility]ALTH ORIG SITE FACILITY FEE July 10, 2019 INSERT BLADDER CATHETER May 22, 2019 LINDA, DNA, DIR PROBE May 28, 2019 INSERT PESSARY/OTHER DEVICE May 22, 2019 CYSTOSCOPY October 09, 2019 PESSARY NON RUBBER ANY TYPE May 22, 2019 RESULTS Name Result Date Reference Range BV/VAGINITIS PANEL DNA PROBE 2019-05-28 LINDA: NOT DETECTED NOT DETECTED GARDNERELLA: NOT DETECTED NOT DETECTED TRICHOMONAS: NOT DETECTED NOT DETECTED REASON FOR VISIT Insurance Providers [facility] Member Patient Patient Patient Patient Patient Subscriber Subscriber Subscriber Group Insurance Plan Plan Plan Plan ID Relationship Address Phone Name Date of ID Name Date of No Type Insurance Insurance Insurance Coverage to Subscriber Address Phone Name Dates HealthPart PO [address] HealthPart self [place] [id number] [facility] [id number] [employer] PO [address] [employer] self [place] [id number] thCare - [address] [place] th[place] - [place] [address] Replacemen t (Ins t (Ins Bill) Bill) [...]
[2022-04-28 10:33] LABS: Albumin* 3.9 g/dL (3.3-5.0)
[2022-04-28 10:34] LABS: Chloride* 105 mmol/L (96-114); Sodium* 140 mmol/L (135-149)
[2022-04-28 10:36] LABS: Carbon Dioxide* 29 mmol/L (20-32); Cholesterol* 232 mg/dL (90-199); Creatinine* 0.7 mg/dL (0.5-1.5); Estimated Glomerular Filt Rate 94 ml/min
[2022-04-28 10:37] LABS: Alanine Aminotransferase* 24 U/L (4-35); Alkaline Phosphatase* 87 U/L (40-150); Aspartate Amino Transferase* 27 U/L (12-35); Bilirubin Total* 0.5 mg/dL (0.1-1.5); Blood Urea Nitrogen* 21 mg/dL (7-30); Calcium* 9.2 mg/dL (8.4-10.6); Glucose* 90 mg/dL (60-115); Triglycerides* 87 mg/dL (40-149)
[2022-04-28 10:38] LABS: HDL Cholesterol* 68 mg/dL (>=50); LDL Cholesterol Calculated 147 mg/dL (<100)
== END 2022-04-28 08:03 | disposition home or self-care (01) ==
PROVIDERS: PCP Internal Medicine; Visit Provider Internal Medicine
DX: E03.9 Hypothyroidism, unspecified (principal); E78.5 Hyperlipidemia, unspecified; I10 Essential (primary) hypertension
CPT/HCPCS: 80053; 80061; 84443

== ENCOUNTER 2023-04-23 08:00 | Outpatient (CLI) | payer MEDICARE, SELFPAY ==
--- OUTSIDE RECORDS SUMMARY | 2023-04-23 08:03 | XMS_ITS | Referral Summary ---
Author Name Unknown Organization [place] Address [facility] [place] [address] Care Team Providers Care Dark Room Attendant Name Role Phone Js Sousa MD Primary Care Provider Allergies No known active allergies Medications Medication Sig Dispensed Refills Start Date End Date Status multivitamin w/minerals (THERA-VIT-M) tablet Take 1 tablet by mouth daily 0 Active VITAMIN D, CHOLECALCIFEROL, PO Take 1,000 Units by mouth daily 0 Active order for DMEIndications:Left foot pain,Tailor's bunion of left foot,Bursitis of foot, left Please dispense up to 3 pairs of knee high compression stockings at 20-30 mmHg. Home Medical Equipment: 1. [facility] - [address] [facility], [phone] 2. [facility] -[address] [place] 3 Device 0 08/29/2016 Active Emerson-3 Fatty Acids (OMEGA 3 PO) Take 1,200 mg by mouth daily 0 Active Calcium Citrate-Vitamin D (CALCIUM CITRATE CHEWY BITE PO) Take 1 tablet by mouth daily 0 Active HYDROCHLOROTHIAZIDE PO Take 25 mg by mouth daily 0 Active aspirin 81 MG EC tablet Take 81 mg by mouth daily 0 Active glucosamine-chondro itin 500-400 MG CAPS per capsule Take 1 capsule by mouth daily 0 Active ibuprofen (ADVIL/MOTRIN) 600 MG tabletIndications:V aginal vault prolapse,Cystocele, midline,Rectocele Take 1 tablet (600 mg) by mouth every 6 hours as needed for moderate pain 45 tablet 0 10/09/2019 Active acetaminophen (TYLENOL) 650 MG CR tabletIndications:V aginal vault prolapse,Cystocele, midline,Rectocele Take 1 tablet (650 mg) by mouth every 6 hours as needed for mild pain or fever 45 tablet 0 10/09/2019 Active ondansetron (ZOFRAN-ODT) 4 MG ODT tabIndications:Vagi nal vault prolapse,Cystocele, midline,Rectocele Take 1 tablet (4 mg) by mouth every 8 hours as needed for nausea 15 tablet 0 10/09/2019 Active Additional Information Patient not taking.Reported on 06/14/2021 diclofenac (VOLTAREN) 75 MG EC tabletIndications:L eft foot pain,Pes cavus,Peroneal tendonitis, left Take 1 tablet (75 mg) by mouth 2 times daily for 14 days 28 tablet 0 06/14/2021 Active Active Problems No known active problems Social History Tobacco Use Types Packs/Day Years Used Date Smoking Tobacco: Former Cigarettes 1 5 Q uit: 11/25/2007 Smokeless Tobacco: Never Tobacco Cessation:Counseling Given: Yes Alcohol Use Standard Drinks/Week Comments No 0 (1 standard drink = 0.6 oz pur e alcohol) Adolescent Education Answer Date Record ed Getting School Help Needed Not on file 12/17 Sex and Gender Information Value Date Recorded Sex Assigned at Female 07/17/2021 8:09 AM CDT Gender Identity Female 07/17/2021 8:09 AM CDT Sexual Orientation Straight 07/17/2021 8: 09 AM CDT Last Filed Vital Signs Vital Sign Reading Time Taken Comments Blood Pressure 124/84 07/19/2021 10:08 AM CDT Pulse 54 10/09/2019 2:15 PM CDT Temperature 36.2 ??C (97.1 ??F) 10/09/2019 4:45 PM CD T Respiratory Rate 14 10/09/2019 4:45 PM CDT Oxygen Saturation 97% 10/09/2019 4:45 PM CDT Inhaled Oxygen Concentration - - Weight 86.2 kg (190 lb) 07/19/2021 10:08 AM CDT Height 162.6 cm (5' 4) 07/19/2021 10:08 AM CDT Body Mass Index 32.61 07/19/2021 10:08 AM CDT Plan of Treatment Not on file Advance Directives For more information, please contact: [phone] Latest Code Status on File Code Status Date Activated Date Inactivated Comments Full Code 10/09/2019 2:12 PM Question Answer Comments Code status determined by: Discussion wi th patient/ legal decision maker Care Teams Dark Room Attendant Relationship Specialty Start Date End Date Js Sousa MD [facility] [address] [place] [address] PCP - General Emergency Medicine 09/30/19
--- OUTSIDE RECORDS SUMMARY | 2023-04-23 08:03 | XMS_ITS | Clinical Summary ---
Author Name Unknown Organization [place] Address [facility] [place] [address] Care Team Providers Care Preschool Lead Teacher Name Role Phone Js Sousa MD Primary [...] at 20-30 mmHg. Home Medical Equipment: 1. [facility] - [address] [facility], [phone] 2. [facility] -[address] [place] 3 Device 0 08/29/2016 Active [place]-3 Fatty Acids (OMEGA 3 PO) Take 1,200 [...] ORDERS [address] CT COLONOGRAPHY 1955 DEXA 1955 FIT 1955 FLEX SIG 1955 MAMMO SCREENING 1955 sDNA (Cologuard) 1955 HEPATITIS C SCREENING 1971 LIPID 1998 LUNG CANCER SCREENING 2003 RSV VACCINE ( & 60+) (1 - 1-dose 60+ series) 2013 COLONOSCOPY 09/20/2016 09/20/2006 COLORECTAL CANCER SCREENING 09/20/2016 FALL RISK ASSESSMENT 2018 MEDICARE ANNUAL WELLNESS VISIT 2018 COVID-19 Vaccine ( season) 2022 06/22/2021, 2021, 01/13/2021, Additional history exists INFLUENZA VACCINE (#1) 2022 , 11/10/2019, 12/16/2018, Additional history exists PHQ-2 (once per calendar year) 2023 DTAP/TDAP/TD IMMUNIZATION (2 - Td or Tdap) 12/28/2027 12/27/2017 ZOSTER IMMUNIZATION Completed 01/01/2019, 9 Pneumococcal Vaccine: 65+ Years Completed 12/19/2019, 12/16/2018 HPV IMMUNIZATION Aged Out No longer e ligible based on patient's age to complete this topic IPV IMMUNIZATION Aged Out No longer e ligible based on patient's age to complete this topic MENINGITIS IMMUNIZATION Aged Out No l onger eligible based on patient's age to complete this topic RSV MONOCLONAL ANTIBODY Aged Out No l onger eligible based on patient's age to complete this topic Advance Directives For more information, please contact: [phone] Latest Code Status on File Code Status Date Activated Date Inactivated Comments Full Code 10/09/2019 2:12 PM Question Answer Comments Code status determined by: Discussion wi th patient/ legal decision maker Care Teams Preschool Lead Teacher Relationship Specialty Start Date End Date Js Sousa MD [facility] [address] [place] [address] PCP - General Emergency Medicine 09/30/19
--- OUTSIDE RECORDS SUMMARY | 2023-04-23 08:03 | XMS_ITS | Encounter Summary ---
Author Name Unknown Organization [place] Address [address] [place] [address]. [place] [address] Care Team Providers Care Stoper Name Role Phone Js Sousa MD Primary Care Provider Berta Blackwell DPM, Podiatry /Foot and Ankle Surgery Unavailable Berat Blackwell DPM, Podiatry /Foot and Ankle Surgery Unavailable Encounter Details Date Type Department Care Team (Late st Contact Info) Description 10/06/2019 External Order Results [facility] [address] [place] [phone] Outside, Provider Social History Tobacco Use Types Packs/Day Years Used Date Smoking Tobacco: Former Cigarettes 1 5 Q uit: 11/25/2007 Smokeless Tobacco: Never Alcohol Use Standard Drinks/Week Comments No 0 (1 standard drink = 0.6 oz pur e alcohol) Sex and Gender Information Value Date Recorded Sex Assigned at Female 07/17/2021 8:09 AM CDT Gender Identity Female 07/17/2021 8:09 AM CDT Sexual Orientation Straight 07/17/2021 8: 09 AM CDT COVID-19 Exposure Response Date Recorded In the last month, have you been in contact with someone who was confirmed or suspected to have Coronavirus / COVID-19? No / Unsure 10/09/2019 11:02 AM CDT documented as of this encounter Plan of Treatment Not on file documented as of this encounter Procedures Procedure Name Priority Date/Time Associated Diagnosis Comments COVID-19 VIRUS (CORONAVIRUS) BY PCR (EXTERNAL RESULT) Routine 10/06/2019 9:05 AM CDT documented in this encounter Results * COVID-19 Virus (Coronavirus) by PCR (External Result) (10/06/2019 9:05 AM CDT) COVID-19 Virus by PCR (External Result) ABSENT ABSENT LABDE SCAN Comment: Performed at [facility] [address] [facility] ??[id number] 10/06/2019 9:05 AM CDT Narrative [facility] - 10/14/2019 1:10 PM CDT Verified by Nikole Shields on 10/14/2019. Patient Reported LABORATORY [facility] LABDE SCAN documented in this encounter Visit Diagnoses Not on filedocumented in this encounter Care Teams Stoper Relationship Specialty Start Date End Date Js Sousa MD [facility] [address] [place] [address] PCP - General Emergency Medicine 09/30/19 Berta Blackwell DPM, Podiatry/Foot and Ankle Surgery [address] [place] [address] Assigned Musculoskeletal Provider 01/16/20 05/22/20 Berta Blackwell DPM, Podiatry/Foot and Ankle Surgery [address] [place] [address] Assigned Musculoskeletal Provider 06/19/21 01/19/23 documented as of this encounter
--- OUTSIDE RECORDS SUMMARY | 2023-04-23 08:03 | XMS_ITS | Encounter Summary ---
Author Name Unknown Organization [facility] Address [address] [place] [address] Care Team Providers Care Pelts Skinner Name Role Phone Js Sousa MD Primary Care Provider [phone] Encounter Details Date Type Department Care Team Description 02/12/2018 Correspondence None Inactive, Provider COMPRESSION STOCKING BILLABLE Social History Tobacco Use Types Packs/Day Years Used Date Smoking Tobacco: Every Day Alcohol Use Standard Drinks/Week Comments Not Asked 0 (1 standard drink = 0.6 oz pur e alcohol) Sex and Gender Information Value Date Recorded Sex Assigned at Not on file Gender Identity Not on file Sexual Orientation Not on file documented as of this encounter Plan of Treatment Not on file documented as of this encounter Visit Diagnoses Not on filedocumented in this encounter Care Teams Pelts Skinner Relationship Specialty Start Date End Date Js Sousa MD [address] [place] [address] PCP - General 05/20/20 documented as of this encounter
--- OUTSIDE RECORDS SUMMARY | 2023-04-23 08:03 | XMS_ITS | Clinical Summary ---
Author Name Unknown Organization [facility] Address [address] [place] [address] Care Team Providers Care Wharf Tender Head Name Role Phone Js Sousa MD Primary Care Provider [phone]- [phone] Source Comments You are receiving this document as you are listed as the primary care provider,follow-up provider, or the patient has been referred to you for consultation.This is in compliance with the Medicare and[facility] EHR Incentive Program,which states Providers who transition their patient to another setting of careor provider of care or refers their patient to another provider of care shouldprovide summary care record for each transition of care or referral. [facility] Allergies No known active allergies Medications Medication Sig Dispensed Refills Start Date End Date Status HYDROCHLOROTHIAZIDE OR 0 Active Cholecalciferol (VITAMIN D OR) 0 Active CALCIUM OR 0 Active [place]-3 Fatty Acids (FISH OIL) 1000 MG capsule 0 Active estradiol (ESTRACE) 0.1 MG/GM vaginal cream Insert 1 g vaginally two times a week. Initially use nightly for 2 weeks 42.5 g 4 05/12/2021 Active diazePAM (VALIUM) 10 MG tablet Insert 1 tablet into vagina 1 hour before intercourse. 20 Tablet 2 05/12/2021 Active Social History Tobacco Use Types Packs/Day Years Used Date Smoking Tobacco: Former Smokeless Tobacco: Never Alcohol Use Standard Drinks/Week Comments Never 0 (1 standard drink = 0.6 oz pur e alcohol) Sex and Gender Information Value Date Recorded Sex Assigned at Not on file Gender Identity Not on file Sexual Orientation Not on file Last Filed Vital Signs Vital Sign Reading Time Taken Comments Blood Pressure 165/94 03/15/2018 4:15 PM PROFESSOR OF HISTORICAL THEOLOGY Pulse 59 03/15/2018 4:15 PM PROFESSOR OF HISTORICAL THEOLOGY Temperature 36.8 ??C (98.2 ??F) 03/15/2018 4:15 PM CS T Respiratory Rate 16 05/16/2003 1:15 PM PROFESSOR OF HISTORICAL THEOLOGY Oxygen Saturation - - Inhaled Oxygen Concentration - - Weight 93.6 kg (206 lb 6.4 oz) 01/18/2018 2:11 P M CDT Height 162.6 cm (5' 4) 01/18/2018 2:11 PM CDT Body Mass Index 35.43 01/18/2018 2:11 PM CDT Plan of Treatment Health Maintenance Due Date Last Done Comments Hep C Screening (Preventive Services) 1955 COVID-19 Vaccine (#1) 1955 Cholesterol 1998 Colon Cancer Screening Plan Due 09/21/2006 09/20/2006 Mammogram 01/29/2014 01/29/2013 Dexa 2018 Influenza (#1) 2022 12/07/2020, 10/24, 12/16/2018, Additional history exists Medicare Annual Wellness Visit 03/26/2023 DTaP/Tdap/Td (2 - Tdap) 12/28/2027 12/27/2017 Zoster/Shingles Completed 01/01/2019, 10/27/2018 Pneumococcal 65+ Yrs Completed 12/19/2019, 12/17/19 19 HepA Aged Out No longer eligi ble based on patient's age to complete this topic HepB Aged Out No longer eligi ble based on patient's age to complete this topic Hib Aged Out No longer eligi ble based on patient's age to complete this topic IPV (Polio) Aged Out No longer eligi ble based on patient's age to complete this topic MCV4 Aged Out No longer eligi ble based on patient's age to complete this topic Care Teams Wharf Tender Head Relationship Specialty Start Date End Date Js Sousa MD [address] [place] [address] PCP - General 05/20/20
--- NOTE | 2023-04-23 08:15 | CRLHL7_ITS ---
For Patients: As a result of the Century Cures Act, medical imaging exams and procedure reports are released immediately into your electronic medical record. You may view this report before your referring provider. If you have questions, please contact your health care provider. BILATERAL SCREENING MAMMOGRAM WITH COMPUTER-AIDED DETECTION AND TOMOSYNTHESIS TECHNIQUE: CC and MLO views were obtained. These mammographic images have been obtained using full-field digital technique. These mammographic images were interpreted with the benefit of computer-aided detection. Breast Tomosynthesis was used in this interpretation. COMPARISON FILM: 04/20/22, 03/30/21, 03/22/20. FINDINGS: There are scattered areas of fibroglandular density. IMPRESSION: There is no radiographic evidence for malignancy. ASSESSMENT: BI-RADS Category 1: Negative RECOMMENDATION: Routine screening mammogram in 1 year. A lay language report of this examination will be provided to the patient. Jim Edmond M.D. Diagnostic Radiologist [email or web address] SP/Dictated by: Jim Edmond MD @ 04/23/2023 10:18:00 AM (Electronically Signed)
== END 2023-04-23 08:01 | disposition home or self-care (01) ==
LOC: MAMMO 08:01
PROVIDERS: PCP Internal Medicine; Visit Provider Internal Medicine
DX: Z12.31 Encounter for screening mammogram for malignant neoplasm of breast (principal)
CPT/HCPCS: 77063; 77067

== ENCOUNTER 2023-07-09 12:08 | Emergency (ER) | payer MEDICARE, SELFPAY ==
[2023-07-09 12:15] VITALS: BP 152/88; PULSE 57; RESP 18; TEMP 35.7; O2SAT 97; BMI 35.0
--- NOTE | 2023-07-09 15:23 | CT_ITS ---
Patient: BUNNY LUCERO Facility:?[facility] Patient ID:?[id number] Site Patient ID:?[id number]. Site :?1955 Study:?CT-Abdomen/Pelvis W/ 100CC ISOVUE 370-07/09/2023 4:35:34 PM Ordering Physician:JESSICA Final Report: Indication: Left lower quadrant abdominal pain Technique: Volumetric multidetector CT images of the abdomen and pelvis were obtained after the administration of intravenous contrast. 100 cc Isovue 370 low osmolar intravenous contrast Comparison: CT abdomen and pelvis August 08, 2022 Findings: The lung bases are clear. The liver is normal in attenuation without intrahepatic biliary ductal dilatation. The portal vein is patent. There is prior cholecystectomy. There is no significant common biliary ductal dilatation or abrupt cut off. The spleen is normal in enhancement and size. The stomach and duodenum are grossly unremarkable. The pancreas is normal in enhancement without significant atrophy. The adrenal glands are unremarkable. The kidneys demonstrate preserved corticomedullary differentiation without evidence of obstructive uropathy. There is moderate stool seen throughout the colon with extensive colonic diverticulosis. There is no overt pericolonic inflammation. The appendix is not well visualized. There are stable somewhat shotty reactive mesenteric lymph nodes. The aorta is nonaneurysmal. There is no significant atherosclerotic disease appreciated. There is prior hysterectomy. The bladder is grossly within normal limits. There is no free fluid or free air. The anterior abdominal wall is intact without significant hernias. The lumbar vertebral body heights are grossly maintained in satisfactory alignment without evidence of displaced fracture, lytic or blastic lesion. Impression: Moderate stool seen throughout the colon with extensive distal colonic diverticulosis without obvious pericolonic inflammatory changes to suggest diverticulitis. Otherwise, no definite acute intra-abdominal abnormality is appreciated. Please note that all CT scans at this facility use dose modulation, iterative reconstruction, and/or weight-based dosing when appropriate to reduce radiation dose to as low as reasonably achievable. Dictated by Og Langley MD @ 07/09/2023 5:01:22 PM Signed by:?Og Langley MD @07/09/2023 5:01:22 PM (Electronic Signature)
--- OUTSIDE RECORDS SUMMARY | 2023-07-09 15:37 | XMS_ITS | Clinical Summary ---
Author Name Unknown Organization [facility] Address [address] [place] [address] Care Team Providers Care Location And Measurement Technician Name Role Phone Js Sousa MD Primary Care Provider [phone]- [phone] Source Comments You are receiving this document as you are listed as the primary care provider,follow-up provider, or the patient has been referred to you for consultation.This is in compliance with the Medicare and[facility] EHR Incentive Program,which states Providers who transition their patient to another setting of careor provider of care or refers their patient to another provider of care shouldprovide summary care record for each transition of care or referral. [facility] Allergies No known active allergies Medications Medication Sig Dispensed Refills Start Date End Date Status HYDROCHLOROTHIAZIDE OR Active Cholecalciferol (VITAMIN D OR) Active CALCIUM OR Active [place]-3 Fatty Acids (FISH OIL) 1000 MG capsule Active estradiol (ESTRACE) 0.1 MG/GM vaginal cream [...] Comments Blood Pressure 165/94 03/15/2018 4:15 PM HEAVY EQUIPMENT DIESEL MECHANIC Pulse 59 03/15/2018 4:15 PM HEAVY EQUIPMENT DIESEL MECHANIC Temperature 36.8 ??C (98.2 ??F) 03/15/2018 4:15 PM CS T Respiratory Rate 16 05/16/2003 1:15 PM HEAVY EQUIPMENT DIESEL MECHANIC Oxygen Saturation - - Inhaled Oxygen Concentration - - Weight 93.6 kg (206 lb 6.4 oz) 01/18/2018 2:11 P M CDT Height 162.6 cm (5' 4) 01/18/2018 2:11 PM CDT Body Mass Index 35.43 01/18/2018 2:11 PM CDT Plan of Treatment Health Maintenance Due Date Last Done Comments Hep C Screening (Preventive Services) 1955 Cholesterol 1998 Colon Cancer Screening Plan Due 09/21/2006 09/20/2006 Mammogram 01/29/2014 01/29/2013 Dexa 2018 COVID-19 Vaccine ( season) 2022 01/13/2021, 06/22/2020, 06/01/2020 Influenza (#1) 2022 12/07/2020, 10/24, 12/16/2018, Additional [...] age to complete this topic Care Teams Location And Measurement Technician Relationship Specialty Start Date End Date Js Sousa MD [address] [place] [address] PCP - General 05/20/20
--- OUTSIDE RECORDS SUMMARY | 2023-07-09 15:37 | XMS_ITS | Referral Summary ---
Author Name Unknown Organization [facility] Address [facility] [place] [address] Care Team Providers Care Supervisor Grips Name Role Phone Js Sousa MD Primary Care Provider Allergies No known active allergies Medications Medication Sig Dispensed Refills Start Date End Date Status multivitamin w/minerals (THERA-VIT-M) tablet Take 1 tablet by mouth daily Active VITAMIN D, CHOLECALCIFEROL, PO Take 1,000 Units by mouth daily Active order for DMEIndications:Left foot pain,Tailor's bunion of left foot,Bursitis of foot, left Please dispense up to 3 pairs of knee high compression stockings at 20-30 mmHg. Home Medical Equipment: 1. [facility] - [address] [address], [phone] 2. [facility] [place] -[address] [place] [address] Device 08/29/2016 Active [place]-3 Fatty Acids (OMEGA 3 PO) Take 1,200 mg by mouth daily Active Calcium Citrate-Vitamin D (CALCIUM CITRATE CHEWY BITE PO) Take 1 tablet by mouth daily Active HYDROCHLOROTHIAZIDE PO Take 25 mg by mouth daily Active aspirin 81 MG EC tablet Take 81 mg by mouth daily Active glucosamine-chondro itin 500-400 MG CAPS per capsule Take 1 capsule by mouth daily Active ibuprofen (ADVIL/MOTRIN) 600 MG tabletIndications:V aginal vault prolapse,Cystocele, midline,Rectocele Take 1 tablet (600 mg) by mouth every 6 hours as needed for moderate pain 45 tablet 10/09/2019 Active acetaminophen (TYLENOL) 650 MG CR tabletIndications:V aginal vault prolapse,Cystocele, midline,Rectocele Take 1 tablet (650 mg) by mouth every 6 hours as needed for mild pain or fever 45 tablet 10/09/2019 Active ondansetron (ZOFRAN-ODT) 4 MG ODT tabIndications:Vagi nal vault prolapse,Cystocele, midline,Rectocele Take 1 tablet (4 mg) by mouth every 8 hours as needed for nausea 15 tablet 10/09/2019 Active Additional Information Patient not taking.Reported on 06/14/2021 diclofenac (VOLTAREN) 75 MG EC tabletIndications:L eft foot pain,Pes cavus,Peroneal tendonitis, left Take 1 tablet (75 mg) by mouth 2 times daily for 14 days 28 tablet 06/14/2021 Active Active Problems No known active problems Social History Tobacco Use Types Packs/Day Years Used Date Smoking Tobacco: Former Cigarettes 1 5 0 11/24/2002 - 11/25/2007 Smokeless Tobacco: Never Tobacco Cessation:Counseling Given: [...] CDT Plan of Treatment Not on file Procedures Procedure Name Priority Date/Time Associated Diagnosis Comments COLONOSCOPY Routine 09/20/2006 6:50 AM CDT from Last 3 Months or Most Recently Relevant to Health Maintenance Results * COLONOSCOPY (09/20/2006 6:50 AM CDT) COLONOSCOPY Endoscopy Patient Name: Sandy Sousa ?Gender: F ? Procedure Date: 09/20/2006 6:50 AM ? Date of : 1955 ?Age: 51 ? Admit Type: Outpatient ? Attending MD: Reid Langley ? Procedure: ?Colonoscopy Indications: ?Avg risk screening for malignant neoplasm in the colon, ?Personal history of suspected diverticulitis Providers: ?Reid Langley MD Referring MD: ?? Kit López MD Medicines: ?Fentanyl 100 mcg IV, Midazolam 1 mg IV Complications: ??No immediate complications Procedure: ?- Prior to the procedure, a History and Physical was ?performed, and patient medication allergies have been ?reviewed. The patient's tolerance of previous anesthesia has ?been reviewed. ?- The risks and benefits of the procedure and the sedation ?options and risks were discussed with the patient. All ?questions were answered and informed consent was obtained. ?- Patient identification and proposed procedure were verified ?prior to the procedure by the physician and the nurse. The ?procedure was verified in the procedure room. ?- Pre-procedure physical examination revealed no ?contraindication s to sedation. ?- ASA Grade Assessment: P1 A normal healthy patient. ?- The heart rate, respiratory rate, oxygen saturations, blood ?pressure, adequacy of pulmonary ventilation, and response to ?care were monitored throughout the procedure. ?After obtaining informed consent, the colonoscope was passed ?under direct vision. Throughout the procedure, the patient's ?blood pressure, pulse, and oxygen saturations were monitored ?continuously. The [id number] #[id number] was introduced through ?the anus and advanced to the cecum, identified by appendiceal ?orifice & IC valve. The colonoscopy was somewhat difficult ?due to multiple diverticula in the colon. The patient ?tolerated the procedure well. The quality of the prep was ?excellent. The total duration of the procedure was 18 minutes. ? Findings: ? Five benign appearing sessile polyps were found in the rectum, with one ? 3mm possible cecal polyp. The polyps were 1 to 4 mm in size. ? Rfp Writer polyps were removed with a hot forceps, others ? fulgurated. Resection and retrieval were complete.Multiple diverticula ? with thickened muscle were found in the sigmoid colon. Moderately severe ? diverticulosis. No sign of active diverticulitis. ? Impression: ? - Five benign appearing 1 to 4 mm polyps in the rectum and in ?the cecum. Either resected or fulgurated. ?- Diverticulosis of the sigmoid. Recommendation: - Discharge patient to home (ambulatory). ?- Repeat colonoscopy will depend on pathologic findings. ? _ Reid Langley MD Signed Date: 09/20/2006 7:49 AM Number of Addenda: 0 I was physically present for the entire viewing portion of the exam. Note generated on 09/20/2006 6:50 AM RADIOLOGY RESULTS COLONOSCOPY RADIOLOG Y RESULTS 09/20/2006 6:50 AM CDT Kit López MD PROCEDURES Performing Organization Address City/State/[facility] Co de Phone Number RADIOLOGY RESULTS from Last 3 Months or Most Recently Relevant to Health Maintenance Advance Directives For more information, please contact: [phone] * Full Code (Latest Code Status on File) Date Activated Date Inactivated Comments 10/09/2019 2:12 PM Question Answer Comments Code status determined by: Discussion with patikit nt/ legal decision maker Care Teams Supervisor Grips Relationship Specialty Start Date End Date Js Sousa MD [facility] [address] [place] [address] PCP - General Emergency Medicine 09/30/19
--- OUTSIDE RECORDS SUMMARY | 2023-07-09 15:37 | XMS_ITS | Clinical Summary ---
Author Name Unknown Organization [facility] Address [facility] [place] [address] Care Team Providers Care Information Manager Name Role Phone Js Sousa MD Primary [...] at 20-30 mmHg. Home Medical Equipment: 1. [facility] - [address], [phone] 2. [facility] -[address] [place] [address] Device 08/29/2016 Active [place]-3 Fatty Acids (OMEGA 3 PO) Take 1,200 [...] DEXA 1955 FIT 1955 FLEX SIG 1955 GLUCOSE 1955 MAMMO SCREENING 1955 sDNA (Cologuard) 1955 HEPATITIS C SCREENING 1971 LIPID 1993 LUNG CANCER SCREENING 2003 RSV VACCINE ( [...] on patient's age to complete this topic Procedures Procedure Name Priority Date/Time Associated Diagnosis [...] suspected diverticulitis Providers: ?Reid Langley MD Referring : ?? Myesha López MD Medicines: ?Fentanyl 100 mcg IV, [...] and oxygen saturations were monitored ?continuously. The [id number] was introduced through ?the anus and advanced [...] 1 to 4 mm in size. ? Mental Health Social Worker polyps were removed with a hot forceps, [...] RADIOLOG Y RESULTS 09/20/2006 6:50 AM CDT E Abel López MD PROCEDURES RADIOLOGY RESULTS from Last 3 Months or Most Recently Relevant to Health Maintenance Advance Directives For more information, please contact: [phone] * Full Code (Latest Code Status on File) Date Activated Date Inactivated Comments 10/09/2019 2:12 PM Question Answer Comments Code status determined by: Discussion with barbara parsons/ legal decision maker Care Teams Information Manager Relationship Specialty Start Date End Date Js Sousa MD [facility] [address] [place] [address] PCP - General Emergency Medicine 09/30/19
--- OUTSIDE RECORDS SUMMARY | 2023-07-09 15:37 | XMS_ITS | Encounter Summary ---
Author Name Unknown Organization [facility] Address [address] [place] [address]. [place] [address] Care Team Providers Care Graphic Design Manager Name Role Phone Js Sousa MD Primary Care Provider Berta Blackewll DPM, Podiatry /Foot and Ankle Surgery Unavailable Berta Blackwell DPM, Podiatry /Foot and Ankle Surgery Unavailable Encounter Details Date Type Department Care Team (Late st Contact Info) Description 10/06/2019 External Order Results [facility] [address] [place] [id number] Outside, Provider Social History Tobacco Use Types Packs/Day Years Used Date Smoking Tobacco: Former Cigarettes 1 5 0 11/24/2002 - 11/25/2007 Smokeless Tobacco: Never Alcohol Use Standard [...] ABSENT ABSENT LABDE SCAN Comment: Performed at [place] [address] [facility] ??[id number] 10/06/2019 9:05 AM CDT Narrative [facility] - 10/14/2019 1:10 PM CDT Verified by Nikole Shields on 10/14/2019. Patient Reported LABORATORY [facility] LABDE SCAN documented in this encounter Visit Diagnoses Not on filedocumented in this encounter Care Teams Graphic Design Manager Relationship Specialty Start Date End Date Js Sousa MD [facility] [address] [place] [address] PCP - General Emergency Medicine 09/30/19 Berta Blacwkell DPM, Podiatry/Foot and Ankle Surgery [address] [place] [address] Assigned Musculoskeletal Provider 01/16/20 05/22/20 Berta Blackwell DPM, Podiatry/Foot and Ankle Surgery [address] [place] [address] Assigned Musculoskeletal Provider 06/19/21 01/19/23 documented as of this encounter
--- OUTSIDE RECORDS SUMMARY | 2023-07-09 15:37 | XMS_ITS | Encounter Summary ---
Author Name Unknown Organization [facility] Address [address] [address] Care Team Providers Care Senior Energy Consultant Name Role Phone Js Sousa MD Primary Care Provider +1- [phone] Encounter Details Date Type Department Care Team (Late st Contact Info) Description 02/12/2018 Correspondence None Inactive, Provider COMPRESSION [...] on filedocumented in this encounter Care Teams Senior Energy Consultant Relationship Specialty Start Date End Date Js Sousa MD [address] [place] [address] PCP - General 05/20/20 documented as of this encounter
--- NOTE | 2023-07-09 15:42 | ED.ABDPAIN ---
HPI - Abdominal Pain General Date Seen: 07/09/23 Chief Complaint: Abdominal Pain Stated Complaint: Suspected diverticulitis Time Seen by Provider: 07/09/23 15:09 Source: patient Mode of arrival: ambulatory Limitations: no limitations History of Present Illness HPI narrative: Patient is a 68-year-old female presenting to the emergency department for left lower quadrant abdominal pain. Patient states for the past week she has been having left lower quadrant abdominal pain that is relatively mild but she is concerned she could be having diverticulitis could she has had several times in the past then has felt like this. Has been having nausea on and off but is currently not feeling nauseated. States the pain is currently tolerable. Eating and drinking without issues. Has not had any diarrhea constipation. Denies melena or hematochezia. Has been drinking plenty of fluids and is not having any dehydration she states. Denies fevers, chills, chest pain, shortness of breath, lightheadedness, dizziness, weakness, numbness. She states other than the pain she is feeling well at this time. Has a previous cholecystectomy, hysterectomy. Related Data Home Medications Medication Instructions Recorded Confirmed aspirin 81 mg tablet,delayed 81 mg PO DAILY 11/02/21 07/09/23 release calcium carbonate 500 mg PO DAILY 11/02/21 07/09/23 cholecalciferol (vitamin D3) 25 25 mcg PO DAILY 11/02/21 07/09/23 mcg (1,000 unit) tablet multivitamin 1 tab PO QDAY 11/02/21 07/09/23 omeprazole 20 mg capsule,delayed 20 mg PO BID 11/02/21 07/09/23 release cetirizine 10 mg tablet (Zyrtec) 10 mg PO QDAY PRN 03/10/23 07/09/23 Previous Rx's Medication Instructions Recorded polyethylene glycol 3350 17 gram 17 g PO QDAY Panniculitis #30 ea 08/15/22 oral powder packet (Miralax) hydrochlorothiazide 25 mg tablet 25 mg PO DAILY Hypertension #90 02/05/23 tabs lisinopril 20 mg tablet 20 mg PO QDAY Hypertension #90 tabs 04/20/23 ondansetron 4 mg disintegrating 4 mg PO Q6H #20 tabs 07/09/23 tablet Allergies Allergy/AdvReac Type Severity Reaction Status Date / Time No Known Allergies Allergy Unknown Verified 03/22/23 12:35 Review of Systems Status of ROS Reports: 10 or more systems reviewed and unremarkable except as noted in History and below PFSH [facility] Medical History 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 - Sclerosing mesenteritis (ICD-10) Hyperlipidemia ?E78.5 - Hyperlipidemia, unspecified (ICD-10) Diverticulitis ?K57.92 - Diverticulitis of intestine, part unspecified, without perforation or abscess without bleeding (ICD-10) Abdominal pain ?R10.9 - Unspecified abdominal pain (ICD-10) Hypertension ?I10 - Essential (primary) hypertension (ICD-10) Colon polyp ?K63.5 - Polyp of colon (ICD-10) History of renal calculi (2009) ?Z87.442 - Personal history of urinary calculi (ICD-10) History of diverticulitis (2017) ?Z87.19 - Personal history of other diseases of the digestive system (ICD-10) Encounter for screening for severe acute respiratory syndrome coronavirus 2 (SARS-CoV-2) infection ?Z11.52 - Encounter for screening for COVID-19 (ICD-10) Surgical History History of tonsillectomy (11/27/08) ?Z90.89 - Acquired absence of other organs (ICD-10) History of hysterectomy (11/27/08) ?Z90.710 - Acquired absence of both cervix and uterus (ICD-10) History of cholecystectomy (11/27/08) ?Z90.49 - Acquired absence of other specified parts of digestive tract (ICD-10) History of appendectomy (11/27/08) ?Z90.49 - Acquired absence of other specified parts of digestive tract (ICD-10) Social History Smoking Status: Former smoker Little interest or pleasure in doing things: not at all Feeling down, depressed, or hopeless: not at all Exam Narrative: Exam Narrative: Const: Well-nourished, Well-developed, in mild distress Eyes: PERRL, no conjunctival injection, and symmetrical lids HENT: Atraumatic external nose and ears. Moist mucous membranes. Neck: Symmetric, trachea midline, No thyromegaly. CVS: RRR, No murmurs or gallops. Peripheral pulses 2+ and equal in all extremities RESP: Unlabored respiratory effort. Clear to auscultation bilaterally. GI: Nontender/Nondistended, No rebound or guarding. MSK:Extremities w/o deformity, Normal Active ROM Skin: Warm, Dry. No rashes or lesions. Neuro: Normal Muscle tone, No focal neurological deficits. Psych: Awake, Alert, & Oriented x3. Appropriate mood and affect. Const: Vital Signs, click to edit/add: Vital Signs - 24 hr 07/09/23 12:15 Temperature 96.3 F L Pulse Rate [Pulse Oximeter] 57 L Respiratory Rate 18 Blood Pressure [Ri ght Upper Arm] 152/88 H Pulse Oximetry 97 Oxygen Delivery Me thod Room Air Course Vital Signs Vital signs: Initial Vital Signs Temperature 96.3 F L 07/09/23 12:15 Temperature Source Temporal Artery Scan 07/09/23 12:15 Pulse Rate 57 L 07/09/23 12:15 Respiratory Rate 18 07/09/23 12:15 Blood Pressure 152/88 H 07/09/23 12:15 Blood Pressure Mean 109 H 07/09/23 12:15 Blood Pressure Position Sitting 07/09/23 12:15 Pulse Oximetry 97 07/09/23 12:15 Oxygen Delivery Method Room Air 07/09/23 12:15 Vital Signs Temperature 96.3 F L 07/09/23 12:15 Pulse Rate 57 L 07/09/23 12:15 Respiratory Rate 18 07/09/23 12:15 Blood Pressure 152/88 H 07/09/23 12:15 Pulse Oximetry 97 07/09/23 12:15 Oxygen Delivery Method Room Air 07/09/23 12:15 Temperature 96.3 F L 07/09/23 12:15 Pulse Rate 57 L 07/09/23 12:15 Respiratory Rate 18 07/09/23 12:15 Blood Pressure 152/88 H 07/09/23 12:15 Pulse Oximetry 97 07/09/23 12:15 Oxygen Delivery Method Room Air 07/09/23 12:15 MDM - Abdominal Pain MDM Narrative Medical decision making narrative: Patient is a 68-year-old female presenting for left lower quadrant abdominal pain. She is concerned this is diverticulitis to having symptoms like this in the past. She is otherwise looks well at this time. Vital signs are stable. We will do CT scan of the abdomen pelvis to better evaluate this. She denies needing fluids, nausea medicine, pain medicine at this time. Also ordered CBC, CMP, urinalysis. While the pain is in the lower abdomen women can sometimes present on the for ACS so a troponin and EKG were ordered. Patient's lab work returned showing no concerning abnormalities. EKG and troponin shows no concerning findings. She continues to have mild symptoms and is not requesting any nausea or pain medicine. She would like a nausea medicine to go home with. This will be ordered. CT scan was done and is currently pending. CT scan results showed signs of possible patient but no other acute abnormalities. This is likely the cause of her symptoms. She will be discharged home and given instructions for constipation. She is agreeable to this plan. She is not having any urinary symptoms and I do not believe is necessary check a urinalysis at this time. Lab Data Labs: Lab Results 07/09/23 07/09/23 Range/Units 15:40 15:40 WBC 5.74 (4.50-11.00) K/uL RBC 4.03 (4.00-5.20) m/uL Hgb 13.0 (12.0-16.0) gm/dL Hct 38.4 (33.0-51.0) % MCV 95 (80-100) fL MCH 32 (26-34) pg MCHC 34 (32-36) gm/dL RDW Coeff of Link 12.3 (11.5-15.5) % Plt Count 232 (140-440) K/uL Neut % (Auto) 45.1 (42.0-72.0) % Lymph % (Auto) 47.0 H (20-44) % [place] % (Auto) 5.7 (0.0-11.0) % Eos % (Auto) 1.9 (0.0-7.0) % Baso % (Auto) 0.3 (0.0-3.0) % Neut # (Auto) 2.58 (1.7-7.0) K/uL Lymph # (Auto) 2.70 (0.90-2.90) K/uL [place] # (Auto) 0.30 (0.00-0.90) K/UL Eos # (Auto) 0.11 (0.00-0.50) K/uL Baso # (Auto) 0.02 (0.00-0.30) K/uL Abs Immat Gran (auto) 0.00 (0.00-0.30) K/uL Imm/Tot Granulo (auto) 0.0 % Sodium 140 (135-149) mmol/L Potassium 3.5 L (3.6-5.1) mmol/L Chloride 106 (96-114) mmol/L Carbon Dioxide 28 (20-32) mmol/L BUN 21 (7-30) mg/dL Creatinine 0.7 (0.5-1.5) mg/dL Estimated Creat Clear 45.20 Estimated GFR 93 ml/min Glucose 94 (60-115) mg/dL Calcium 9.6 (8.4-10.6) mg/dL Total Bilirubin 0.5 (0.1-1.5) mg/dL AST 25 (12-35) U/L ALT 20 (4-35) U/L Alkaline Phosphatase 94 (40-150) U/L Troponin I < 0.01 L Cancelled (0.01-0.04) ng/mL Total Protein 7.9 (6.0-8.3) g/dL Albumin 4.4 (3.3-5.0) g/dL POC Creatinine 0.8 (0.6-1.3) mg/dl Imaging Data CT scan abdomen and pelvis: Attestation: I have reviewed the pertinent imaging results. Radiologist's impression: Moderate stool seen throughout the colon with extensive distal colonic diverticulosis without obvious pericolonic inflammatory changes to suggest diverticulitis. Otherwise, no definite acute intra-abdominal abnormality is appreciated. Please note that all CT scans at this facility use dose modulation, iterative reconstruction, and/or weight-based dosing when appropriate to reduce radiation dose to as low as reasonably achievable. Dictated by Og Langley MD @ 07/09/2023 5:01:22 PM ECG Data Attestation: I personally reviewed and interpreted this ECG as follows: Prior ECG tracings: not available for review Interpretation: EKG shows sinus bradycardia rate 57 beats per minute, normal intervals, normal axis, no ST or T-wave abnormalities Discharge Plan Discharge Clinical Impression: Constipation Patient Disposition: Home, Self-Care Condition: Stable Instructions: Constipation (DC) Additional Instructions: Is take Tylenol and ibuprofen for pain. Return to emergency department for new or worsening symptoms. Start taking stool softeners daily to help with constipation. Use the Zofran as needed for nausea Prescriptions: New ondansetron 4 mg tablet,disintegrating 4 mg PO Q6H Qty: 20 0RF No Action multivitamin Tablet 1 tab PO QDAY aspirin 81 mg tablet,delayed release (DR/EC) 81 mg PO DAILY cholecalciferol (vitamin D3) 25 mcg (1,000 unit) tablet 25 mcg PO DAILY calcium carbonate 500 mg calcium (1,250 mg) tablet 500 mg PO DAILY omeprazole 20 mg capsule,delayed release(DR/EC) 20 mg PO BID polyethylene glycol 3350 [Miralax] 17 gram powder in packet 17 g PO QDAY Qty: 30 3RF cetirizine [Zyrtec] 10 mg tablet 10 mg PO QDAY PRN hydrochlorothiazide 25 mg tablet 25 mg PO DAILY Qty: 90 1RF lisinopril 20 mg tablet 20 mg PO QDAY Qty: 90 0RF Follow Up/Referrals: Js Sousa MD [Primary Care Provider] - Stand Alone Forms: Neutral [employer] Info Instructions
[2023-07-09 15:51] LABS: Basophils Absolute Auto 0.02 K/uL (0.00-0.30); Basophils Percent Auto 0.3 % (0.0-3.0); Eosinophils Absolute Auto 0.11 K/uL (0.00-0.50); Eosinophils Percent Auto 1.9 % (0.0-7.0); Hematocrit 38.4 % (33.0-51.0); Mean Corpuscular HGB Conc 34 gm/dL (32-36); Mean Corpuscular Hemoglobin 32 pg (26-34); Mean Corpuscular Volume 95 fL (80-100); Monocytes Percent Auto 5.7 % (0.0-11.0); Neutrophils Absolute Auto 2.58 K/uL (1.7-7.0); Neutrophils Percent Auto 45.1 % (42.0-72.0); Platelet Count* 232 K/uL (140-440); RDW Coefficient of Variation % 12.3 % (11.5-15.5); Red Blood Count 4.03 m/uL (4.00-5.20); White Blood Count* 5.74 K/uL (4.50-11.00)
[2023-07-09 15:53] LABS: Creatinine, Point-of-Care* 0.8 mg/dl (0.6-1.3)
[2023-07-09 15:56] LABS: Slide Review Reflex No
[2023-07-09 16:14] LABS: Albumin* 4.4 g/dL (3.3-5.0); Chloride* 106 mmol/L (96-114); Sodium* 140 mmol/L (135-149)
[2023-07-09 16:16] LABS: Bilirubin Total* 0.5 mg/dL (0.1-1.5); Creatinine* 0.7 mg/dL (0.5-1.5); Estimated Glomerular Filt Rate 93 ml/min
[2023-07-09 16:17] LABS: Alanine Aminotransferase* 20 U/L (4-35); Alkaline Phosphatase* 94 U/L (40-150); Aspartate Amino Transferase* 25 U/L (12-35); Blood Urea Nitrogen* 21 mg/dL (7-30); Calcium* 9.6 mg/dL (8.4-10.6); Carbon Dioxide* 28 mmol/L (20-32); Glucose* 94 mg/dL (60-115); Total Protein* 7.9 g/dL (6.0-8.3)
[2023-07-09 16:30] LABS: Potassium* 3.5 mmol/L (3.6-5.1)
[2023-07-09 16:32] LABS: Troponin I* < 0.01 ng/mL (0.01-0.04)
[2023-07-09 18:15] LABS: Anion Gap 6 mEq/L (7-15)
== END 2023-07-09 17:17 | disposition home or self-care (01) ==
PROVIDERS: Emergency Provider Student in an Organized Health Care Education/Training Program; PCP Internal Medicine
DX: K59.00 Constipation, unspecified (principal)
CPT/HCPCS: 36415; 74177; 80053; 81001; 82565; 84484; 85025; 93005; 99283; 99284; Q9967

== ENCOUNTER 2023-07-12 08:15 | Outpatient (CLI) | payer MEDICARE, SELFPAY ==
--- OUTSIDE RECORDS SUMMARY | 2023-07-16 08:23 | XMS_ITS | Encounter Summary ---
Author Name Unknown Organization [place] Address [address] [place] [address]. [place] [address] Care Team Providers Care Seismic Plotter Name Role Phone Js Sousa MD Primary Care Provider Berta Blackwell DPM, Podiatry /Foot and Ankle Surgery Unavailable Berta Blackwell DPM, Podiatry /Foot and Ankle Surgery Unavailable Encounter Details Date Type Department Care Team (Late st Contact Info) Description 10/06/2019 External Order Results [facility] [address] [place] [id number] Outside, Provider Social History Tobacco Use [...] ABSENT ABSENT LABDE SCAN Comment: Performed at [place] [address] [facility] ??[id number] 10/06/2019 9:05 AM CDT Narrative BREEZE PFT - 10/14/2019 1:10 PM CDT Verified by Nikole Shields on 10/14/2019. Patient Reported LABORATORY BREEZE PFT LABDE SCAN documented in this encounter Visit Diagnoses Not on filedocumented in this encounter Care Teams Seismic Plotter Relationship Specialty Start Date End Date Js Sousa MD [facility] [address] [place] [address] PCP - General Emergency Medicine 09/30/19 Berta Blackwell DPM, Podiatry/Foot and Ankle Surgery [address] [place] [address] Assigned Musculoskeletal Provider 01/16/20 05/22/20 Berta Blackwell DPM, Podiatry/Foot and Ankle Surgery [address] [place] [address] Assigned Musculoskeletal Provider 06/19/21 01/19/23 documented as of this encounter
--- OUTSIDE RECORDS SUMMARY | 2023-07-16 08:23 | XMS_ITS | Clinical Summary ---
Author Name Unknown Organization [place] Address [facility] [place] [address] Care Team Providers Care Waiter/Waitress Room Service Name Role Phone Js Sousa MD Primary [...] Medical Equipment: 1. [facility] - [address] [facility], [phone] 2. [place] [facility] -[address] [place] 3 Device 08/29/2016 Active [place]-3 Fatty Acids (OMEGA 3 PO) Take 1,200 [...] and oxygen saturations were monitored ?continuously. The [id number][id number] was introduced through ?the anus and advanced [...] 1 to 4 mm in size. ? Plastic Frame Inserter polyps were removed with a hot forceps, [...] Advance Directives For more information, please contact: [phone] * Full Code (Latest Code Status on File) Date Activated Date Inactivated Comments 10/09/2019 2:12 PM Question Answer Comments Code status determined by: Discussion with barbara parsons/ legal decision maker Care Teams Waiter/Waitress Room Service Relationship Specialty Start Date End Date Js Sousa MD [facility] [address] [place] [address] PCP - General Emergency Medicine 09/30/19
--- OUTSIDE RECORDS SUMMARY | 2023-07-16 08:23 | XMS_ITS | Referral Summary ---
Author Name Unknown Organization [place] Address [facility] [place] [address] Care Team Providers Care Sales And Service Change Leader Name Role Phone Js Sousa MD Primary [...] at 20-30 mmHg. Home Medical Equipment: 1. [facility] - [address] [facility], [phone] 2. [place] [facility] -[address] [place] 3 Device 08/29/2016 Active [place]-3 Fatty Acids (OMEGA 3 PO) Take 1,200 [...] and oxygen saturations were monitored ?continuously. The [facility]-Q180AL #[id number] was introduced through ?the anus and advanced [...] 1 to 4 mm in size. ? Director Of Instruction polyps were removed with a hot forceps, [...] Kit López MD PROCEDURES Performing Organization Address City/State/[facility] Co de Phone Number RADIOLOGY RESULTS from Last 3 Months or Most Recently Relevant to Health Maintenance Advance Directives For more information, please contact: [phone] * Full Code (Latest Code Status on File) Date Activated Date Inactivated Comments 10/09/2019 2:12 PM Question Answer Comments Code status determined by: Discussion with patikit nt/ legal decision maker Care Teams Sales And Service Change Leader Relationship Specialty Start Date End Date Js Sousa MD [facility] [address] [place] [address] PCP - General Emergency Medicine 09/30/19
--- OUTSIDE RECORDS SUMMARY | 2023-07-16 08:23 | XMS_ITS | Encounter Summary ---
Author Name Unknown Organization [facility] Address [address], [place] [address] Care Team Providers Care Nuclear Design Engineer Name Role Phone Js Sousa MD Primary Care Provider [phone]- [phone] Encounter Details Date Type Department Care Team [...] on filedocumented in this encounter Care Teams Nuclear Design Engineer Relationship Specialty Start Date End Date Js Sousa MD [address] [place] [address] PCP - General 05/20/20 documented as of this encounter
== END 2023-07-12 08:16 | disposition home or self-care (01) ==
LOC: NFLDREF 07-16 08:22
PROVIDERS: PCP Internal Medicine; Referring Provider Internal Medicine; Visit Provider Internal Medicine
DX: E03.9 Hypothyroidism, unspecified (principal); E78.5 Hyperlipidemia, unspecified
CPT/HCPCS: 80053; 80061; 84443

== ENCOUNTER 2023-07-21 11:04 | Emergency (ER) | payer MEDICARE, SELFPAY ==
[2023-07-21 11:07] VITALS: BP 155/85; PULSE 66; RESP 18; TEMP 36.9; O2SAT 95; BMI 35.7
--- NOTE | 2023-07-21 11:43 | CT_ITS ---
Patient: BUNNY LUCERO Facility:?[facility] RIS Patient ID:?[id number] Site Patient ID:?[id number] Site :?[id number] Study:?CT-Abdomen/Pelvis w/ 100cc [id number] 12:09:14 PM Ordering Physician:Placido Varela Final Report: INDICATION: Suprapubic and left lower COMPARISON: Quadrant pain. 07/09/2023 TECHNIQUE: CT of the abdomen and pelvis with 100 cc of Isovue 370 intravenous contrast. Please note that all CT scans at this facility use dose modulation, iterative reconstruction, and/or weight-based dosing when appropriate to reduce radiation dose to as low as reasonably achievable. FINDINGS: ABDOMEN Liver: Hepatic steatosis. No suspicious focal hepatic lesion. No intrahepatic biliary ductal dilatation. Patent portal and hepatic veins. Gallbladder: Cholecystectomy. Normal common duct caliber. Pancreas: Normal pancreatic attenuation. No focal lesion. Normal duct caliber. No peripancreatic inflammatory changes. Spleen: Normal splenic attenuation. No suspicious focal lesion. Patent splenic artery and vein. Adrenal Glands: Symmetrical adrenal glands. No focal lesion of significance. Kidneys: Normal bilateral renal attenuation. No suspicious focal lesion. No obstructing nephrolith or dilatation of the intrarenal collecting systems. Patent renal arteries and veins. Nondilated upper urinary tracts. Gastrointestinal tract: Extensive diverticulosis of the descending and sigmoid colon. Pericolic inflammatory fat stranding about the proximal sigmoid colon consistent with acute uncomplicated diverticulitis. No evidence of perforation or abscess. Unidentified appendix. Vascular: Abdominal aorta and its major proximal branches including the celiac, superior mesenteric, inferior mesenteric, renal, and bilateral common iliac arteries are patent. Inferior vena cava, portal and superior mesenteric veins are patent. Additional findings: No incidental adenopathy. No significant ascites, free fluid or pneumoperitoneum. PELVIS No bladder lesion is identified. Hysterectomy. No abnormal free fluid. No incidental adenopathy. SKELETON AND BODY WALL No acute or suspicious incidental findings. Mild asymmetrical right hip osteoarthrosis. LOWER THORAX Partially included lower thoracic wall, lungs, pleural spaces and mediastinum are otherwise without significant incidental findings. IMPRESSION: Acute uncomplicated sigmoid diverticulitis. Please note that all CT scans at this facility use dose modulation, iterative reconstruction, and/or weight-based dosing when appropriate to reduce radiation dose to as low as reasonably achievable. Dictated by Daniel Leal MD @ 07/21/2023 12:52:32 PM Signed by:?Daniel Leal MD @07/21/2023 12:52:32 PM (Electronic Signature)
--- OUTSIDE RECORDS SUMMARY | 2023-07-21 11:51 | XMS_ITS | Referral Summary ---
Author Name Unknown Organization [place] Address [facility] [place] [address] Care Team Providers Care Seismograph Computer Name Role Phone sJ Sousa MD Primary Care Provider Allergies No [...] at 20-30 mmHg. Home Medical Equipment: 1. [facility] - [address] [facility], [phone] 2. [place] [facility] -[address]: [address]. [place] 3 Device 08/29/2016 Active [place]-3 Fatty Acids (OMEGA 3 PO) Take 1,200 [...] and oxygen saturations were monitored ?continuously. The [facility]-Q180AL #[id number] was introduced through ?the anus and advanced [...] 1 to 4 mm in size. ? Nitrocellulose Maker polyps were removed with a hot forceps, [...] Kit López MD PROCEDURES Performing Organization Address City/State/[facility] Co de Phone Number RADIOLOGY RESULTS from Last 3 Months or Most Recently Relevant to Health Maintenance Advance Directives For more information, please contact: [phone] * Full Code (Latest Code Status on File) Date Activated Date Inactivated Comments 10/09/2019 2:12 PM Question Answer Comments Code status determined by: Discussion with patikit nt/ legal decision maker Care Teams Seismograph Computer Relationship Specialty Start Date End Date Js Sousa MD [facility] [address] [place] [address] PCP - General Emergency Medicine 09/30/19
--- OUTSIDE RECORDS SUMMARY | 2023-07-21 11:51 | XMS_ITS | Encounter Summary ---
Author Name Unknown Organization [place] Address [address] [place] [address]. [place] [address] Care Team Providers Care Bone Char Kiln Operator Name Role Phone Js Sousa MD Primary Care Provider Berta Blackwell DPM, Podiatry /Foot and Ankle Surgery Unavailable Berta Blackwell DPM, Podiatry /Foot and Ankle Surgery Unavailable Encounter Details Date Type Department Care Team (Late st Contact Info) Description 10/06/2019 External Order Results [facility] [address] [place] [phone] Outside, Provider Social History Tobacco Use [...] ABSENT ABSENT LABDE SCAN Comment: Performed at [place] [address] [facility] ??[id number] 10/06/2019 9:05 AM CDT Narrative BREEZE PFT - 10/14/2019 1:10 PM CDT Verified by Nikole Shields on 10/14/2019. Patient Reported LABORATORY BREEZE PFT LABDE SCAN documented in this encounter Visit Diagnoses Not on filedocumented in this encounter Care Teams Bone Char Kiln Operator Relationship Specialty Start Date End Date Js Sousa MD [facility] [address] [place] [address] PCP - General Emergency Medicine 09/30/19 Berta Blackwell DPM, Podiatry/Foot and Ankle Surgery [address] [place] [address] Assigned Musculoskeletal Provider 01/16/20 05/22/20 Berta Blackwell DPM, Podiatry/Foot and Ankle Surgery [address] [place] [address] Assigned Musculoskeletal Provider 06/19/21 01/19/23 documented as of this encounter
--- OUTSIDE RECORDS SUMMARY | 2023-07-21 11:51 | XMS_ITS | Clinical Summary ---
Author Name Unknown Organization [facility] Address [address] [place] [address] Care Team Providers Care Heeler Name Role Phone Js Sousa MD Primary Care Provider [phone]- [phone] Source Comments You are receiving this document as you are listed as the primary care provider,follow-up provider, or the patient has been referred to you for consultation.This is in compliance with the Medicare and[facility] Hospital[facility] EHR Incentive Program,which states Providers who transition their patient to another setting of careor provider of care or refers their patient to another provider of care shouldprovide summary care record for each transition of care or referral. [facility] Allergies No known active allergies Medications Medication Sig Dispensed Refills Start Date End Date Status HYDROCHLOROTHIAZIDE OR Active Cholecalciferol (VITAMIN D OR) Active CALCIUM OR Active [place]-3 Fatty Acids (FISH OIL) 1000 MG capsule [...] Comments Blood Pressure 165/94 03/15/2018 4:15 PM GENERAL INTERN Pulse 59 03/15/2018 4:15 PM GENERAL INTERN Temperature 36.8 ??C (98.2 ??F) 03/15/2018 4:15 PM CS T Respiratory Rate 16 05/16/2003 1:15 PM GENERAL INTERN Oxygen Saturation - - Inhaled Oxygen Concentration [...] age to complete this topic Care Teams Heeler Relationship Specialty Start Date End Date Js Sousa MD [address] [place] [address] PCP - General 05/20/20
--- OUTSIDE RECORDS SUMMARY | 2023-07-21 11:51 | XMS_ITS | Clinical Summary ---
Author Name Unknown Organization [place] Address [facility] [place] [address] Care Team Providers Care Slitter Processed Film Name Role Phone Js Sousa MD Primary [...] at 20-30 mmHg. Home Medical Equipment: 1. [facility] - [address] [facility], [phone] 2. [place] [facility] -[address]: [address]. [place] 3 Device 08/29/2016 Active [place]-3 Fatty Acids (OMEGA 3 PO) Take 1,200 [...] oxygen saturations were monitored ?continuously. The [facility] #[id number] was introduced through ?the anus and advanced [...] 1 to 4 mm in size. ? Transfer Engineer polyps were removed with a hot forceps, [...] Advance Directives For more information, please contact: [phone] * Full Code (Latest Code Status on File) Date Activated Date Inactivated Comments 10/09/2019 2:12 PM Question Answer Comments Code status determined by: Discussion with barbara parsons/ legal decision maker Care Teams Slitter Processed Film Relationship Specialty Start Date End Date Js Sousa MD [facility] [address] [place] [address] PCP - General Emergency Medicine 09/30/19
--- OUTSIDE RECORDS SUMMARY | 2023-07-21 11:51 | XMS_ITS | Encounter Summary ---
Author Name Unknown Organization [facility] Address [address] [address] Care Team Providers Care Bark Skinner Name Role Phone Js Sousa MD Primary Care Provider [phone] Encounter Details Date Type Department Care Team [...] on filedocumented in this encounter Care Teams Bark Skinner Relationship Specialty Start Date End Date Js Sousa MD [address] [place] [address] PCP - General 05/20/20 documented as of this encounter
--- NOTE | 2023-07-21 11:58 | ED.ABDPAIN ---
HPI - Abdominal Pain General Chief Complaint: Abdominal Pain Stated Complaint: abdomen pain Time Seen by Provider: 07/21/23 11:29 Source: patient Mode of arrival: ambulatory Limitations: no limitations History of Present Illness HPI narrative: Patient is a 68-year-old female presenting to the emergency department for abdominal pain. She has been having abdominal pain for several weeks now and was seen in the emergency department it imaging done 2 weeks ago. She initially thought she had diverticulitis but the imaging did not show any signs of diverticulitis. Pain is initially mostly in her left lower quadrant but now she is also noticing the pain is at its worse in her suprapubic region and radiates the left lower quadrant. States the pain seems to be always there only of intermittent nausea. She was prescribed Zofran last time which she says was helping up until today. She has had some difficulty eating and drinking due to the nausea. Otherwise normal bowel movements. Has not noticed any dysuria or polyuria. Denies fevers, chills, weakness, numbness, headache, chest pain, shortness of breath. No other concerns noted at this time Related Data Home Medications Medication Instructions Recorded Confirmed aspirin 81 mg tablet,delayed 81 mg PO DAILY 11/02/21 07/16/23 release calcium carbonate 500 mg PO DAILY 11/02/21 07/16/23 cholecalciferol (vitamin D3) 25 25 mcg PO DAILY 11/02/21 07/16/23 mcg (1,000 unit) tablet multivitamin 1 tab PO QDAY 11/02/21 07/16/23 cetirizine 10 mg tablet (Zyrtec) 10 mg PO QDAY PRN 03/10/23 07/16/23 Previous Rx's Medication Instructions Recorded polyethylene glycol 3350 17 gram 17 g PO QDAY Panniculitis #30 ea 08/15/22 oral powder packet (Miralax) ondansetron 4 mg disintegrating 4 mg PO Q6H #20 tabs 07/09/23 tablet hydrochlorothiazide 25 mg tablet 25 mg PO DAILY Hypertension #90 07/16/23 tabs lisinopril 20 mg tablet 20 mg PO QDAY Hypertension #90 tabs 07/16/23 omeprazole 20 mg capsule,delayed 20 mg PO BID #120 caps 07/16/23 release amoxicillin 875 mg-potassium 1 tab PO TID #15 tabs 07/21/23 clavulanate 125 mg tablet Allergies Allergy/AdvReac Type Severity Reaction Status Date / Time No Known Allergies Allergy Unknown Verified 07/21/23 12:01 Review of Systems Status of ROS Reports: 10 or more systems reviewed and unremarkable except as noted in History and below PFSH PFS Medical History 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 - Sclerosing mesenteritis (ICD-10) Hyperlipidemia ?E78.5 - Hyperlipidemia, unspecified (ICD-10) Diverticulitis ?K57.92 - Diverticulitis of intestine, part unspecified, without perforation or abscess without bleeding (ICD-10) Abdominal pain ?R10.9 - Unspecified abdominal pain (ICD-10) Hypertension ?I10 - Essential (primary) hypertension (ICD-10) Colon polyp ?K63.5 - Polyp of colon (ICD-10) History of renal calculi (2009) ?Z87.442 - Personal history of urinary calculi (ICD-10) History of diverticulitis (2016) ?Z87.19 - Personal history of other diseases of the digestive system (ICD-10) Encounter for screening for severe acute respiratory syndrome coronavirus 2 (SARS-CoV-2) infection ?Z11.52 - Encounter for screening for COVID-19 (ICD-10) Surgical History History of tonsillectomy (11/27/08) ?Z90.89 - Acquired absence of other organs (ICD-10) History of hysterectomy (11/27/08) ?Z90.710 - Acquired absence of both cervix and uterus (ICD-10) History of cholecystectomy (11/27/08) ?Z90.49 - Acquired absence of other specified parts of digestive tract (ICD-10) History of appendectomy (11/27/08) ?Z90.49 - Acquired absence of other specified parts of digestive tract (ICD-10) Social History Smoking Status: Former smoker How often do you have a drink containing alcohol: monthly or less How often do you have six or more drinks on one occasion: Never AUDIT-C Alcohol total score: 1 Non-prescribed substance use: denies use Little interest or pleasure in doing things: not at all Feeling down, depressed, or hopeless: not at all service: No Exam Narrative: Exam Narrative: Const: Well-nourished, Well-developed, in mild distress Eyes: PERRL, no conjunctival injection, and symmetrical lids HENT: Atraumatic external nose and ears. Moist mucous membranes. Neck: Symmetric, trachea midline, No thyromegaly. CVS: RRR, No murmurs or gallops. Peripheral pulses 2+ and equal in all extremities RESP: Unlabored respiratory effort. Clear to auscultation bilaterally. GI: Left lower quadrant and suprapubic tenderness. Nondistended, No rebound or guarding. MSK:Extremities w/o deformity, Normal Active ROM Skin: Warm, Dry. No rashes or lesions. Neuro: Normal Muscle tone, No focal neurological deficits. Psych: Awake, Alert, & Oriented x3. Appropriate mood and affect. Const: Vital Signs, click to edit/add: Vital Signs - 24 hr 07/21/23 11:07 Temperature 98.4 F Pulse Rate [Right Pulse Oximeter] 66 Respiratory Rate 18 Blood Pressure [Ri ght Upper Arm] 155/85 H Pulse Oximetry 95 Oxygen Delivery Me thod Room Air Course Vital Signs Vital signs: Initial Vital Signs Temperature 98.4 F 07/21/23 11:07 Temperature Source Temporal Artery Scan 07/21/23 11:07 Pulse Rate 66 07/21/23 11:07 Respiratory Rate 18 07/21/23 11:07 Blood Pressure 155/85 H 07/21/23 11:07 Blood Pressure Mean 108 H 07/21/23 11:07 Blood Pressure Position Sitting 07/21/23 11:07 Pulse Oximetry 95 07/21/23 11:07 Oxygen Delivery Method Room Air 07/21/23 11:07 Vital Signs Temperature 98.4 F 07/21/23 11:07 Pulse Rate 66 07/21/23 11:07 Respiratory Rate 18 07/21/23 11:07 Blood Pressure 155/85 H 07/21/23 11:07 Pulse Oximetry 95 07/21/23 11:07 Oxygen Delivery Method Room Air 07/21/23 11:07 Temperature 98.4 F 07/21/23 11:07 Pulse Rate 66 07/21/23 11:07 Respiratory Rate 18 07/21/23 11:07 Blood Pressure 155/85 H 04/27/24 11:07 Pulse Oximetry 95 07/21/23 11:07 Oxygen Delivery Method Room Air 07/21/23 11:07 Medications Administered Medications: Discontinued Medications Generic Name Dose Route Start Last Admin Trade Name Zane PRN Reason Stop Dose Admin Ketorolac Tromethamine 15 mg 07/21/23 11:43 07/21/23 12:01 Ketorolac 15 Mg/Ml Inj IVP 07/21/23 11:44 15 mg ONCE ONE Administration MDM - Abdominal Pain MDM Narrative Medical decision making narrative: Patient is a 68-year-old female presenting for suprapubic left lower quadrant abdominal pain. She has been having the symptoms for the past few weeks but they have been getting worse. Previous CT showed no concerning abnormalities but that was 2 weeks ago and things can change in that time frame. Will repeat the CT scan. Will also check a urinalysis to look for signs of a UTI. The CT scan also showed any signs of volvulus or other concerning intra-abdominal abnormalities. CBC, CMP ordered. Toradol given for pain. Is not requesting any nausea medicine at this time. Lab work all returned showing no concerning abnormalities. Her symptoms improved with the Toradol. She is otherwise doing well has stable vital signs. The repeat CT scan now shows signs of acute uncomplicated diverticulitis. Well is not now recommended not given antibiotics routinely for diverticulitis this has not been on for several weeks and is actually getting worse and not improving. Due to that I will prescribe Augmentin. She states antibiotics have always helped in the past. States Lab Data Labs: Lab Results 07/21/23 07/21/23 Range/Units 12:00 12:15 WBC 7.79 (4.50-11.00) K/uL RBC 4.13 (4.00-5.20) m/uL Hgb 13.3 (12.0-16.0) gm/dL Hct 39.4 (33.0-51.0) % MCV 95 (80-100) fL MCH 32 (26-34) pg MCHC 34 (32-36) gm/dL RDW Coeff of Link 12.4 (11.5-15.5) % Plt Count 236 (140-440) K/uL Neut % (Auto) 74.1 H (42.0-72.0) % Lymph % (Auto) 18.0 L (20-44) % [place] % (Auto) 6.9 (0.0-11.0) % Eos % (Auto) 0.6 (0.0-7.0) % Baso % (Auto) 0.3 (0.0-3.0) % Neut # (Auto) 5.80 (1.7-7.0) K/uL Lymph # (Auto) 1.40 (0.90-2.90) K/uL [place] # (Auto) 0.50 (0.00-0.90) K/UL Eos # (Auto) 0.05 (0.00-0.50) K/uL Baso # (Auto) 0.02 (0.00-0.30) K/uL Abs Immat Gran (auto) 0.01 (0.00-0.30) K/uL Imm/Tot Granulo (auto) 0.1 % Sodium 136 (135-149) mmol/L Potassium 3.8 (3.6-5.1) mmol/L Chloride 99 (96-114) mmol/L Carbon Dioxide 34 H (20-32) mmol/L Anion Gap 3 L (7-15) mEq/L BUN 15 (7-30) mg/dL Creatinine 0.8 (0.5-1.5) mg/dL Estimated Creat Clear 45.20 Estimated GFR 79 ml/min Glucose 101 (60-115) mg/dL Calcium 9.7 (8.4-10.6) mg/dL Total Bilirubin 0.6 (0.1-1.5) mg/dL AST 29 (12-35) U/L ALT 22 (4-35) U/L Alkaline Phosphatase 93 (40-150) U/L Total Protein 7.9 (6.0-8.3) g/dL Albumin 4.2 (3.3-5.0) g/dL Urine Color Yellow (Yellow) Urine Appearance Clear (Clear) Urine pH 6.5 (5.0-8.5) Ur Specific [place] 1.020 (1.000-1.030) Urine Protein Negative (Negative) Urine Glucose (UA) Negative (Negative) Urine Ketones Negative (Negative) Urine Blood Negative (Negative) Urine Nitrite Negative (Negative) Urine Bilirubin Negative (Negative) Urine Urobilinogen 0.2 (0.2-1.0) Ur Leukocyte Esterase Negative (Negative) Urine RBC 0-2 (0-2) Urine WBC 0-2 (0-5) Ur Squamous Epith Cells Few (None-Few) Urine Bacteria None (None) Imaging Data CT scan abdomen and pelvis: Attestation: I have reviewed the pertinent imaging results. Radiologist's impression: Acute uncomplicated sigmoid diverticulitis. Please note that all CT scans at this facility use dose modulation, iterative reconstruction, and/or weight-based dosing when appropriate to reduce radiation dose to as low as reasonably achievable. Dictated by Daniel Leal MD @ 07/21/2023 12:52:32 PM Discharge Plan Discharge Clinical Impression: Diverticulitis Patient Disposition: Home, Self-Care Condition: Improved Instructions: Diverticulitis (DC) Additional Instructions: Take the antibiotics as prescribed. If symptoms are continuing to persist you should follow-up with your GI doctor or primary care provider about possible repeat colonoscopy. Return to emergency department for any other new or worsening symptoms Prescriptions: New amoxicillin-pot clavulanate 875-125 mg tablet 1 tab PO TID Qty: 15 0RF No Action omeprazole 20 mg capsule,delayed release(DR/EC) 20 mg PO BID Qty: 120 0RF lisinopril 20 mg tablet 20 mg PO QDAY Qty: 90 4RF hydrochlorothiazide 25 mg tablet 25 mg PO DAILY Qty: 90 4RF multivitamin Tablet 1 tab PO QDAY aspirin 81 mg tablet,delayed release (DR/EC) 81 mg PO DAILY cholecalciferol (vitamin D3) 25 mcg (1,000 unit) tablet 25 mcg PO DAILY calcium carbonate 500 mg calcium (1,250 mg) tablet 500 mg PO DAILY polyethylene glycol 3350 [Miralax] 17 gram powder in packet 17 g PO QDAY Qty: 30 3RF cetirizine [Zyrtec] 10 mg tablet 10 mg PO QDAY PRN ondansetron 4 mg tablet,disintegrating 4 mg PO Q6H Qty: 20 0RF Follow Up/Referrals: Js Sousa MD [Primary Care Provider] - Stand Alone Forms: MyHealth Info Instructions
[2023-07-21] MEDS: KETOROLAC 15 MG/ML inj IVP (12:01)
[2023-07-21 12:09] LABS: Basophils Absolute Auto 0.02 K/uL (0.00-0.30); Basophils Percent Auto 0.3 % (0.0-3.0); Eosinophils Absolute Auto 0.05 K/uL (0.00-0.50); Eosinophils Percent Auto 0.6 % (0.0-7.0); Hematocrit 39.4 % (33.0-51.0); Hemoglobin* 13.3 gm/dL (12.0-16.0); Immature Granulocytes Abs Auto 0.01 K/uL (0.00-0.30); Immature Granulocytes Pct Auto 0.1 %; Mean Corpuscular HGB Conc 34 gm/dL (32-36); Mean Corpuscular Hemoglobin 32 pg (26-34); Mean Corpuscular Volume 95 fL (80-100); Monocytes Percent Auto 6.9 % (0.0-11.0); Neutrophils Percent Auto 74.1 % (42.0-72.0); Platelet Count* 236 K/uL (140-440); RDW Coefficient of Variation % 12.4 % (11.5-15.5); Red Blood Count 4.13 m/uL (4.00-5.20); White Blood Count* 7.79 K/uL (4.50-11.00)
[2023-07-21 12:13] LABS: Slide Review Reflex No
[2023-07-21 12:22] LABS: Albumin* 4.2 g/dL (3.3-5.0); Chloride* 99 mmol/L (96-114); Potassium* 3.8 mmol/L (3.6-5.1); Sodium* 136 mmol/L (135-149)
[2023-07-21 12:23] LABS: Appearance Urine Clear (Clear); Bilirubin Urine Negative (Negative); Blood Urine Negative (Negative); Color Urine Yellow (Yellow); Glucose Urine Negative (Negative); Ketones Urine Negative (Negative); Leukocyte Esterase Urine Negative (Negative); Nitrite Urine Negative (Negative); Protein Urine Negative (Negative); Urobilinogen Urine 0.2 (0.2-1.0); pH Urine 6.5 (5.0-8.5)
[2023-07-21 12:24] LABS: Anion Gap 3 mEq/L (7-15); Aspartate Amino Transferase* 29 U/L (12-35); Bilirubin Total* 0.6 mg/dL (0.1-1.5); Carbon Dioxide* 34 mmol/L (20-32); Creatinine* 0.8 mg/dL (0.5-1.5); Estimated Glomerular Filt Rate 79 ml/min
[2023-07-21 12:25] LABS: Alanine Aminotransferase* 22 U/L (4-35); Alkaline Phosphatase* 93 U/L (40-150); Blood Urea Nitrogen* 15 mg/dL (7-30); Calcium* 9.7 mg/dL (8.4-10.6); Glucose* 101 mg/dL (60-115); Total Protein* 7.9 g/dL (6.0-8.3)
[2023-07-21 12:33] LABS: RBC Urine 0-2 (0-2); Squamous Epithelial Cell Urine Few (None-Few); WBC Urine 0-2 (0-5)
[2023-07-21 13:50] VITALS: PULSE 55; O2SAT 98
== END 2023-07-21 14:03 | disposition home or self-care (01) ==
PROVIDERS: Emergency Provider Student in an Organized Health Care Education/Training Program; PCP Internal Medicine
DX: K57.30 Diverticulosis of large intestine without perforation or abscess without bleeding (principal)
CPT/HCPCS: 36415; 74177; 80053; 81001; 85025; 96374; 99283; 99284; J1885; Q9967

== ENCOUNTER 2024-05-14 08:43 | Outpatient (CLI) | payer MEDICARE, SELFPAY | END 2024-05-14 08:44 | disposition home or self-care (01) | LOC: MAMMO 08:45 | PROVIDERS: PCP Internal Medicine; Visit Provider Internal Medicine | DX: Z12.31 Encounter for screening mammogram for malignant neoplasm of breast (principal) | CPT/HCPCS: 77063; 77067 ==

== ENCOUNTER 2024-08-05 15:12 | Outpatient (CLI) | payer MEDICARE, SELFPAY | END 2024-08-05 15:13 | disposition home or self-care (01) | LOC: NFLDREF 08-12 23:50 | PROVIDERS: PCP Internal Medicine; Referring Provider Internal Medicine | DX: R30.0 Dysuria (principal); N39.0 Urinary tract infection, site not specified; R39.15 Urgency of urination | CPT/HCPCS: 87086 ==

== ENCOUNTER 2024-11-08 12:00 | Outpatient (CLI) | payer MEDICARE, SELFPAY | END 2024-11-08 12:01 | disposition home or self-care (01) | LOC: NFLDREF 11-11 15:09 | PROVIDERS: Visit Provider Nurse Practitioner Family | DX: N30.90 Cystitis, unspecified without hematuria (principal) | CPT/HCPCS: 87086 ==